=== PATIENT | female | born 1940 | race Caucasian/White ===

== ENCOUNTER 2023-12-21 20:35 | Emergency (ER) | payer MEDICARE, MEDICAID, SELFPAY ==
[2023-12-21 20:35] VITALS: BMI 48.3
[2023-12-21 20:40] VITALS: BP 114/71
[2023-12-21 20:43] VITALS: BP 114/71
[2023-12-21 21:00] VITALS: BP 110/63
[2023-12-21 21:23] LABS: % Basophils 0.4 % (0-2); % Eosinophils 3.1 % (0-6); % Immature Granulocytes 0.4 % (0-0.5); % Lymphocytes 22.9 % (20.5-51.1); % Monocytes 7.2 % (1.7-9.3); Absolute Eosinophils 0.2 10^3/uL (0-0.7); Absolute Lymphocytes 1.7 10^3/uL (1.2-3.4); Absolute Monocytes 0.5 10^3/uL (0.1-0.6); Absolute Neutrophils 4.9 10^3/uL (1.4-6.5); Hematocrit 42.7 % (37.0-47.0); Hemoglobin 13.4 g/dL (12.0-16.0); Mean Corp Hgb Conc. 31.4 g/dL (33.0-37.0); Mean Corpuscular Hgb 30.2 pg (27.0-31.0); Mean Corpuscular Volume 96.2 fL (81.0-99.0); Mean Platelet Volume 12.2 fL (7.4-10.4); Nucleated Red Blood Cells % 0 %; Platelet Count 153 10^3/uL (130-400); Red Blood Cell Count 4.44 10^6/uL (4.20-5.40); Red Cell Dist. Width 13.8 % (11.5-14.5); White Blood Cell Count 7.4 10^3/uL (4.8-10.8)
[2023-12-21 21:39] LABS: ALT (SGPT) 18 U/L (0-35); AST (SGOT) 14 U/L (14-36); Albumin 3.6 g/dl (3.5-5.0); Alkaline Phosphatase 81 U/L (38-126); Blood Urea Nitrogen 22 mg/dl (7-17); Calcium 11.1 mg/dl (8.4-10.2); Carbon Dioxide 29 mmol/L (22-30); Chloride 106 mmol/L (98-107); Estimated Creatinine Clearance 90 ml/min; Glucose 142 mg/dl (70-99); Potassium 4.7 mmol/L (3.5-5.1); Sodium 135 mmol/L (135-145); Total Bilirubin 0.5 mg/dl (0.2-1.3); Total Protein 6.3 g/dl (6.3-8.2); eGFR > 60.00
[2023-12-21 21:49] LABS: Troponin I < 0.012 ng/ml
[2023-12-21 22:04] VITALS: BP 130/55
--- NOTE | 2023-12-21 22:12 | ED.GENMED ---
History of Present Illness
General
Chief Complaint: Chest Pain
Source: patient, ambulance crew and residential
Exam Limitations: other (Psychiatric illness)
Time Seen by Provider: 12/21/23 21:08
Nursing documentation reviewed up to this point in time: agreed with
Travel History
Have you had any contact with someone who has COVID-19?: Unable to Answer
Do you have any symptoms of coronavirus? Fever > 100 degrees, chills, cough, shortness of breath, sore throat, loss of taste or smell, muscle aches, or headache?: Unable to Answer
History of Present Illness
History of Present Illness:
83-year-old female with past medical history of anxiety depression schizophrenia asthma hypertension hyperlipidemia presenting to the emergency department after complaints of chest discomfort at her nursing facility prior to arrival. She denies any
current symptoms at this point.
Past History
Past History
ED Past Medical History: HTN and Psychiatric (Schizophrenia)
ED Past Surgical History: None
Social History
Tobacco: Non-smoker
Alcohol: None
Drug: None
Living: residential
Review of Systems
Review of Systems
Allergies reviewed?: Yes
All Other Systems: ROS reviewed and negative except as documented in HPI and ROS
Phy Exam
Physical Exam
Physical Exam:
GENERAL: Alert , in no apparent distress
EYE: pupils equal and reactive
NECK: Supple, no significant adenopathy.
ENT: o/p clr, mmm.
CARDIAC: Regular rate and rhythm .
LUNGS: Clear breath sounds bilaterally, no acute respiratory distress, no wheezes/rales/rhonchi
ABDOMEN: Soft, without focal tenderness, no r/g, no cvat
NEUROLOGICAL: Alert, no focal neuro deficits patient is not oriented to person place or time
SKIN: Warm and dry, skin intact.
MUSCULOSKELETAL: No edema, well perfused.
PSYCH: Normal and appropriate interaction.
Scores
Heart Score for Chest Pain Patients
STEMI patient?: No
History: Slightly or Non-Suspicious
ECG: Nonspecific Repolarization
Age: >/= 65 years
Risk Factors: 1 or 2 Risk Factors
Troponin: </= Normal Limit
Heart Score for Chest Pain Patients: 4
Heart Score Risk: 20.3% MACE over next 6 weeks
Course
Orders/Labs/Results
Orders:
Orders
12/21/23 20:39
Electrocardiogram (*1) Urgent
Reason for Study: Chest Pain
EKG- Treatment ONCE
12/21/23 20:56
Complete Blood Count/With Diff Urgent
Comprehensive Metabolic Panel Urgent
Troponin I Urgent
12/21/23 21:12
Chest [CR Chest - 2 Views ] Urgent
Comment:
Reason For Exam: cp
Abnormal Lab Results
12/21/23
20:56
MCHC 31.4 L g/dL
(33.0-37.0)
MPV 12.2 H fL
(7.4-10.4)
BUN 22 H mg/dl
(7-17)
Creatinine 0.5 L mg/dL
(0.6-1.0)
Glucose 142 H mg/dl
(70-99)
Calcium 11.1 H mg/dl
(8.4-10.2)
12/21/23 20:56
12/21/23 20:56
Vital Signs
Initial and Last Documented VS:
Initial Vital Signs
Temp Pulse Resp BP Pulse Ox
98.3 F 74 25 114/71 94
12/21/23 20:40 12/21/23 20:40 12/21/23 20:40 12/21/23 20:40 12/21/23 20:40
Last Documented Vital Signs
Temp Pulse Resp BP Pulse Ox
98.3 F 74 25 114/71 94
12/21/23 20:40 12/21/23 20:40 12/21/23 20:40 12/21/23 20:40 12/21/23 20:40
MDM/Problems Addressed
MDM/Problems Addressed:
83-year-old female presenting to the emergency department after she complained of chest pain while at her nursing facility. No complaints here vital signs normal heart and lung examination normal labs unremarkable. EKG normal chest x-ray normal
troponin negative. Patient with no symptoms throughout ER stay patient appears stable for discharge return precautions given advised for close outpatient follow-up.
*Critical Care Note
Total Time (30-74mins, 75-104mins- exclusive of procedures): Not Applicable
ED Attending Note
-
Portions of this chart may have been created with voice recognition software.� Occasional wrong word or��sound alike� substitutions may have occurred due to the inherent limitations of voice recognition software.
Discharge Plan
Departure
Patient Disposition: [facility]pc/SNF
Date of Disposition: 12/21/23
Time of Disposition: 22:22
Patient with high blood pressure during this ER visit?: No
Condition: Good
Covid-19: Not Applicable
Discharge Problem:
Chest pain
Instructions: Chest Pain PCP Follow Up
Referrals:
Sadi Clark I., DO [Family Provider] -
Activity Restrictions/Additional Instructions:
You came to the emergency department today with chest pain. Here had a reassuring evaluation. Please follow closely as an outpatient with your land degradation analyst. Return to the emergency department for any worsening, new or concerning symptoms.
Interventions
Interventions:
*Risk Screen - Suicide Last Done: 12/21/23 20:40
*General Assessment Last Done: 12/21/23 20:40
*Neglect/Abuse Screening Last Done: 12/21/23 20:40
ED- Fall Risk Assessment Last Done: 12/21/23 21:00
ED- Cardiac Assessment Last Done: 12/21/23 21:00
Discharge Date and Time
Print Language: GIBRALTARIAN
[2023-12-21 23:00] VITALS: BP 138/52
[2023-12-22] VITALS: BP 118/60
[2023-12-22 01:00] VITALS: BP 134/66
[2023-12-22 02:00] VITALS: BP 113/58
[2023-12-22 03:00] VITALS: BP 126/65
== END 2023-12-22 03:57 ==
LOC: EMR 20:35
PROVIDERS: EMERGENCY PHYSICIAN Student in an Organized Health Care Education/Training Program; FAMILY PHYSICIAN Internal Medicine
DX: R07.89 Other chest pain (principal); I10 Essential (primary) hypertension; E78.5 Hyperlipidemia, unspecified; F20.9 Schizophrenia, unspecified; J45.909 Unspecified asthma, uncomplicated; F41.9 Anxiety disorder, unspecified; F32.A Depression, unspecified
CPT/HCPCS: 99285; 71046; 80053; 84484; 85025; 93005

== ENCOUNTER 2024-02-29 18:07 | Inpatient (IN) | payer MEDICARE, OTHER, SELFPAY ==
[2024-02-29] VITALS (13 sets, daily range): BP systolic 94–144; BP diastolic 38–94; BMI 48.2
[2024-02-29 10:03] LABS: % Basophils 0.4 % (0-2); % Eosinophils 2.1 % (0-6); % Immature Granulocytes 0.4 % (0-0.5); % Lymphocytes 19.8 % (20.5-51.1); % Neutrophils 68.3 % (42.2-75.2); Absolute Eosinophils 0.2 10^3/uL (0-0.7); Absolute Lymphocytes 1.5 10^3/uL (1.2-3.4); Absolute Monocytes 0.7 10^3/uL (0.1-0.6); Absolute Neutrophils 5.3 10^3/uL (1.4-6.5); Hematocrit 42.2 % (37.0-47.0); Mean Corp Hgb Conc. 30.8 g/dL (33.0-37.0); Mean Corpuscular Hgb 29.4 pg (27.0-31.0); Mean Corpuscular Volume 95.5 fL (81.0-99.0); Nucleated Red Blood Cells % 0 %; Red Blood Cell Count 4.42 10^6/uL (4.20-5.40); Red Cell Dist. Width 13.3 % (11.5-14.5); Urine Albumin Trace (Neg - Trace); Urine Bilirubin Negative (Negative); Urine Character Very Cloudy (Clear); Urine Color Straw; Urine Glucose Negative (Negative); Urine Ketone Negative (Negative); Urine Leukocyte 2+ (Negative); Urine Nitrite Positive (Negative); Urine Occult Blood Trace (Negative); Urine Specific Gravity 1.015 (<1.030); Urine Urobilinogen Negative (Neg - 1+); White Blood Cell Count 7.8 10^3/uL (4.8-10.8)
[2024-02-29 10:31] LABS: Urine Bacteria Many (Negative); Urine Squamous Cell 0-2 /LPF (Few); Urine White Cell 16-20 /HPF (0-5)
[2024-02-29 10:48] LABS: ALT (SGPT) 12 U/L (0-35); AST (SGOT) 10 U/L (14-36); Albumin 3.4 g/dl (3.5-5.0); Alkaline Phosphatase 83 U/L (38-126); Blood Urea Nitrogen 19 mg/dl (7-17); Calcium 10.5 mg/dl (8.4-10.2); Carbon Dioxide 31 mmol/L (22-30); Chloride 105 mmol/L (98-107); Glucose 99 mg/dl (70-99); Potassium 4.5 mmol/L (3.5-5.1); Sodium 140 mmol/L (135-145); Total Bilirubin 0.8 mg/dl (0.2-1.3); Total Protein 6.1 g/dl (6.3-8.2); eGFR > 60.00
[2024-02-29 10:53] LABS: Troponin I < 0.012 ng/ml
--- NOTE | 2024-02-29 14:05 | ED.GENMED ---
History of Present Illness
General
Chief Complaint: Chest Pain
Source: patient
Exam Limitations: none
Time Seen by Provider: 02/29/24 09:44
Nursing documentation reviewed up to this point in time: agreed with
History of Present Illness
History of Present Illness:
Patient with history of dementia, presents to ED from [facility] secondary to chest pain. However, upon arrival in ED, patient denies any chest pain to me. Denies shortness of breath. Denies coughing. Denies fever chills and headache. Denies
dizziness.
Past History
Past History
ED Past Medical History: HTN and Psychiatric (Schizophrenia)
ED Past Surgical History: None
Social History
Tobacco: Non-smoker
Alcohol: None
Drug: None
Living: [facility]
Review of Systems
Review of Systems
Allergies reviewed?: Yes
All Other Systems: ROS reviewed and negative except as documented in HPI and ROS
Constitutional: Reports no symptoms; Denies fever
Respiratory: Reports no symptoms; Denies trouble breathing
Cardiac: Reports no symptoms; Denies chest pain
ABD/GI: Reports no symptoms
Musculoskeletal: Reports no symptoms
Skin: Reports no symptoms
Neurological: Reports no symptoms
Phy Exam
Physical Exam
Physical Exam:
Physical Exam
General: mild distress, not acutely ill. afebrile. overweight.
Head: nc/at. eomi
Neck: supple. normal range of motion.
Heart: s1/s2 regular rate and rhythm, no murmur. equal radial pulses.
Lungs: no acute respiratory distress. diminished breath sounds bilaterally
Abdomen: normal bowel sounds. not tender. no distention
Neuro: alert and oriented. no focal neurological deficits
Skin: no rash
Psychiatric: well kept. interactive and cooperative
Extremities: LE b/l edema, nonpitting. no calf tenderness.
Scores
Heart Score for Chest Pain Patients
STEMI patient?: Not applicable
Course
Orders/Labs/Results
Orders:
Orders
02/29/24 09:35
EKG [Electrocardiogram (*1)] Urgent
Reason for Study: Chest Pain
EKG- Treatment ONCE
02/29/24 09:51
Complete Blood Count/With Diff Urgent
Glycohemoglobin (HgbA1c) Urgent
Urinalysis Reflex To Culture Urgent
Date Specimen was Collected: 02/29/24
Time Specimen was Collected: 09:45
Urine Microscopic Reflex Cult Urgent
Urine Culture Urgent
VARUN Source: U
Specimen Description:
Date Specimen was Collected: 02/29/24
Time Specimen was Collected: 09:45
02/29/24 10:18
Comprehensive Metabolic Panel Urgent
NT-proBNP Urgent
Comment: ADD ON
Troponin I Urgent
02/29/24 13:59
Cefdinir [Omnicef] 300 mg PO NOW STA
02/29/24 14:38
CR Chest Portable - 1 View Urgent
Comment:
Reason For Exam: hypoxia
Reason Study Needs to be Portable: Patient Unstable
02/29/24 Dinner
Cholesterol Lowering
At Your Request: Non-Participating
Cholesterol Lowering: Sodium, 2 Gram
02/29/24 15:12
Add On- LAB Urgent
Tests Added?: ProBNP
02/29/24 15:13
Dexamethasone Sod Phosphate [Decadron] 6 mg IV NOW STA
Ipratropium/Albuterol Sulfate [Duoneb] 3 ml INH R NOW STA
02/29/24 16:06
Arterial Blood Gas Urgent
%Oxygen/Room Air: 87
02/29/24 17:51
Admit/Transfer Patient As Directed
Co-Sign Provider:
Level of Care: Inpatient admission
Assign to:: Telemetry
Physician / Group: Hospitalist
Diagnosis: UTI, SIRS, Chest pain, Dementia
Reason for Telemetry: Chest Pain syndromes
Date to Stop Telemetry: 03/02/24
Time to Stop Telemetry: 11:00
Reason for Hospitalization: UTI, SIRS, Chest pain, Dementia
Expected length of stay greater than two midnights?: Yes
ELOS- Estimated Length of Stay in days: 5
I certify the patient meets the requirements for IP care: Yes
02/29/24 17:55
Code Status As Directed
Resuscitation Status: Full Code
02/29/24 19:42
Electrocardiogram (*1) Q6H
Reason for Study: Chest Pain
Comment: at admission and Q3H for total of 3, to be done with each troponin
0.9% Sodium Chloride 1000 ml [Nss] 1,000 ml IV 125 mls/hr
Acetaminophen [Tylenol] 650 mg PO Q4HPRN PRN
Bisacodyl [Dulcolax] 10 mg RECTAL DAILYPRN PRN
Guaifenesin Solution [Robitussin] 200 mg PO Q4HPRN PRN
Magnesium Hydroxide [Milk of Magnesia] 30 ml PO [id number] PRN
Phosphate Enema [Fleet Phosphate Enema-Adult] 118 ml RECTAL DAILYPRN PRN
02/29/24 19:42
Activity As Directed
Activity Level: With Assistance
INT (Intravenous Needle Therapy) As Directed
Comment: maintain peripheral IV access
Intake/ Output As Directed
Frequency: Per unit guidelines
Pneumatic Compression Sleeves As Directed
Type: Knee high
Vital Signs As Directed
Frequency: q4h
Weight As Directed
Frequency: Daily
O2 Therapy [RESP] Routine
Nasal Cannula Liter Flow: 2 LPM
Titrate/Wean O2 to maintain O2 sat greater than (%): 90
Special Instructions: 2 liters/minute as needed for pulse oximetry less than 90%
DX Deep Vein Thrombosis Video Routine
02/29/24 20:00
Perphenazine [Trilafon] 4 mg PO BID
Trihexyphenidyl [Artane] 5 mg PO BID
02/29/24 20:09
Troponin I Q3H
Comment: at admit & Q3H for 3 total including ED draws, obtain ECG with each level
02/29/24 22:00
Acetaminophen [Tylenol] 650 mg PO HS
Carboxymethylcellulose [Refresh Celluvisc Gel] See Dose Instructions BOTH EYES QID
CefTRIAXone [Rocephin] 1,000 mg IV Q24H
Gabapentin [Neurontin] 300 mg PO TID
Lorazepam [Ativan] 0.25 mg PO HS
02/29/24 23:13
Troponin I Q3H
Comment: at admit & Q3H for 3 total including ED draws, obtain ECG with each level
03/01/24 01:42
Electrocardiogram (*1) Q6H
Reason for Study: Chest Pain
Comment: at admission and Q3H for total of 3, to be done with each troponin
03/01/24 02:00
Troponin I Q3H
Comment: at admit & Q3H for 3 total including ED draws, obtain ECG with each level
03/01/24 06:51
Basic Metabolic Panel IN AM
Cardiovascular Evaluation IN AM
Complete Blood Count/No Diff IN AM
03/01/24 07:42
Electrocardiogram (*1) Q6H
Reason for Study: Chest Pain
Comment: at admission and Q3H for total of 3, to be done with each troponin
03/01/24 08:00
Lorazepam [Ativan] 0.5 mg PO DAILY
Losartan [Cozaar] 100 mg PO DAILY
03/02/24 11:00
DC Protocol for Telemetry ONCE
Abnormal Lab Results
02/29/24 02/29/24 02/29/24
09:51 10:18 16:06
MCHC 30.8 L g/dL
(33.0-37.0)
Absolute Monos (auto) 0.7 H 10^3/uL
(0.1-0.6)
Lymphocytes % 19.8 L %
(20.5-51.1)
pCO2 57 H mmHg
(32-35)
HCO3 32.2 H mmol/L
(21-28)
ABG O2 Sat (Measured) 98.1 H %
(94-98)
Carbon Dioxide 31 H mmol/L
(22-30)
BUN 19 H mg/dl
(7-17)
Creatinine 0.5 L mg/dL
(0.6-1.0)
Hemoglobin A1c 5.7 H %
(4.0-5.6)
Calcium 10.5 H mg/dl
(8.4-10.2)
AST 10 L U/L
(14-36)
Total Protein 6.1 L g/dl
(6.3-8.2)
Albumin 3.4 L g/dl
(3.5-5.0)
Ur Occult Blood Reflex Trace A
(Negative)
Urine Nitrite (Reflex) Positive A
(Negative)
Leukocyte Esterase Rfl 2+ A
(Negative)
Urine RBC 3-6 A /HPF
(0-2)
Urine WBC (Reflex) 16-20 A /HPF
(0-5)
Urine Bacteria (Reflex) Many A
(Negative)
02/29/24 09:51
02/29/24 10:18
Vital Signs
Initial and Last Documented VS:
Initial Vital Signs
Pulse Resp
69 20
02/29/24 09:43 02/29/24 09:43
Last Documented Vital Signs
Temp Pulse Resp BP Pulse Ox
97.3 F 50 16 152/73 96
03/01/24 10:24 03/01/24 10:24 03/01/24 10:24 03/01/24 10:24 03/01/24 10:28
MDM/Problems Addressed
MDM/Problems Addressed:
Patient remains chest pain-free during prolonged course of observation ED, along with normal EKG and troponin level.
Urinalysis checked secondary to foul-smelling urine noted upon arrival, which is suggestive of urinary tract infection. Urine cx pending
Unfortunately, patient remains persistently hypoxic, requiring supplemental oxygen, likely multifactorial, including underlying copd/emphysema, as well as obesity, along with possible mild fluid overload. Pt will be admitted for further evaluation
and treatment.
*EKG
Interpreted by ED Provider?: Yes
EKG Intrepretation Date: 02/29/24
Heart Rate: 63
Rate: normal
Rhythm: sinus and PVC's
[place]: normal axis
Interval: normal interval
*Critical Care Note
Total Time (30-74mins, 75-104mins- exclusive of procedures): Not Applicable
ED Attending Note
-
Portions of this chart may have been created with voice recognition software.� Occasional wrong word or��sound alike� substitutions may have occurred due to the inherent limitations of voice recognition software.
Discharge Plan
Departure
Patient Disposition: Admit
Date of Disposition: 02/29/24
Time of Disposition: 15:28
Admit to: Telemetry
Presentation/result/management discussed w/ accepting MD/DO: Hospitalist
Discharge Problem:
Acute UTI, Hypoxia, COPD (chronic obstructive pulmonary disease)
Interventions
Interventions:
*Risk Screen - Suicide Last Done: 02/29/24 09:42
*General Assessment Last Done: 02/29/24 09:45
*Neglect/Abuse Screening Last Done: 02/29/24 09:42
ED- Fall Risk Assessment Last Done: 02/29/24 09:38
*ED COVID-19 Vaccine History Last Done: 02/29/24 09:40
*Nursing Disposition Last Done: 02/29/24 19:25
ED- Cardiac Assessment Last Done: 02/29/24 09:47
Discharge Date and Time
Discharge Date/Time: 02/29/24 19:40
[2024-02-29] MEDS: OMNICEF 300 MG PO (14:24)
[2024-02-29] MEDS: DUONEB 3 ML INH (15:21)
[2024-02-29] MEDS: DECADRON 6 MG IV (15:21)
[2024-02-29 15:52] LABS: NT-proBNP 265 pg/ml
[2024-02-29 16:18] LABS: B.E. 5.2 mmol/L; HCO3 32.2 mmol/L (21-28); O2 Saturation % 98.1 % (94-98); PCO2 57 mmHg (32-35); PO2 84 mmHg (83-108); pH 7.36 (7.35-7.45)
--- NOTE | 2024-02-29 17:33 | HPS.HSE ---
Family Physician
-
Family Physician: Sadi Clark
Chief Complaint
-
Chest pain
History of Present Illness
83 woman with a history of dementia, comes to the ED from a [facility], secondary to chest pain. In the ED, she denied any chest pain. She then denied shortness of breath, coughing, fever chills and headache, dizziness. At the time of my
interview, she appeared chronically ill, but stated she 'felt fine.'
Medical History
Past Medical History
Past Medical History: Reports Other
Additional Past Medical History:
Essential HTN
Schizophrenia
Dementia
COPD
Past Surgical History: Reports Other
Additional Past Surgical History:
Not known.
Social History
Unable to obtain full social history at this time due to: Dementia
Employment: Disabled
Family History
Family History: Not pertinent
Allergies / Home Medications
Allergies reflects when Allergies were last updated in [facility].
Home Medications with original date entered in [facility]
Allergy/Medication List:
Allergies
Allergy/AdvReac Type Severity Reaction Status Date / Time
No Known Allergies Allergy Verified 02/29/24 09:59
Home Medications
acetaminophen 325 mg tablet (Tylenol) 650 mg PO HS 02/29/24
acetaminophen 325 mg tablet (Tylenol) 650 mg PO Q4HPRN PRN mild pain 02/29/24
bisacodyl 10 mg rectal suppository (Dulcolax (bisacodyl)) 10 mg GA DAILYPRN PRN if no bm aftr mom 02/29/24
calcium carbonate 500 mg PO DAILY 02/29/24
carboxymethylcellulose sodium 0.5 % eye drops (Refresh Tears) 1 drp BOTH EYES QID 02/29/24
cholecalciferol (vitamin D3) 25 mcg (1,000 unit) tablet (Vitamin D3) 25 mcg PO DAILY 02/29/24
gabapentin 300 mg capsule 300 mg PO TID 02/29/24
guaifenesin 100 mg/5 mL oral liquid 200 mg PO Q4HPRN PRN cough 02/29/24
ibandronate 150 mg tablet 150 mg PO QMONTH 02/29/24
lorazepam 0.5 mg tablet (Ativan) 0.25 mg PO HS 02/29/24
lorazepam 0.5 mg tablet (Ativan) 0.5 mg PO DAILY 02/29/24
losartan 100 mg tablet 100 mg PO DAILY 02/29/24
magnesium hydroxide 400 mg/5 mL oral suspension (Milk of Magnesia) 30 ml PO [id number] PRN if no bm on 3rd day 02/29/24
perphenazine 4 mg tablet 4 mg PO BID 02/29/24
sodium phosphates 19 gram-7 gram/118 mL enema (Fleet Enema) 118 ml GA DAILYPRN PRN if no bm aftr dulcolax 02/29/24
trihexyphenidyl 0.4 mg/mL oral elixir 5 mg PO BID 02/29/24
Review of Systems
-
Unable to obtain full review of systems at this time due to: Dementia
Physical Exam
Vital Signs
Vital Signs
Temp Pulse Resp BP Pulse Ox
99.0 F 53 16 107/38 93
02/29/24 09:56 02/29/24 17:00 02/29/24 17:00 02/29/24 17:00 02/29/24 17:00
Physical Exam
General: Appears Chronically Ill and Obese
HEENT: Nose Appears Normal and Ears Appear Normal
Respiratory: Clear
Cardiac: S1/S2 and Regular Rhythm
GI: Soft, Non Tender and Non Distended
Musculoskeletal: No Clubbing, No Cyanosis and No Edema
Skin: Warm and Dry; No Rash or Jaundice
Neuro: Awake and Alert; No Oriented or AO x 3
Psych: Calm
Laboratory Results
-
02/29/24 09:51
02/29/24 10:18
Laboratory Results
pH 7.36 (7.35-7.45) 02/29/24 16:06
pCO2 57 mmHg (32-35) H 02/29/24 16:06
pO2 84 mmHg (83-108) 02/29/24 16:06
HCO3 32.2 mmol/L (21-28) H 02/29/24 16:06
Total Bilirubin 0.8 mg/dl (0.2-1.3) 02/29/24 10:18
AST 10 U/L (14-36) L 02/29/24 10:18
ALT 12 U/L (0-35) 02/29/24 10:18
Alkaline Phosphatase 83 U/L (38-126) 02/29/24 10:18
Troponin I < 0.012 ng/ml 02/29/24 10:18
Data Reviewed
-
Lab Data: Labs Reviewed by me
Impression/Plan
-
IMPRESSION:
83 woman with dementia, UTI, and the following findings:
BUN/Creat >20
Ca 10.5
BP 99/78
UA Nitrite, LE, RBC. WBC, JAYA
BNP 265
PLAN:
1. Hypoxia - new issue, though h/o COPD, no signs of CHF, BNP 265. Initial c/o chest pain.
Supplemental O2 as needed
Telemetry
JUAN CARLOS
2. UTI, with BP of 99/78, likely increased confusion. Meets criteria for SIRS
IV abx
IV saline
Follow cultures
3. Increased Ca, 10.5, unclear cause but may be related to dehydration
IV saline
Recheck in am
4. Dementia - chronic issue
Supportive care
Presumed full code for now (check [facility] records when possible)
VCD for DVTp
--- NOTE | 2024-02-29 20:00 | PTCARENOTE ---
Pt was received from ED at 1950. Pt was pulled over to the unit bed. Pt is oriented x1, to herself only, she is aware that she is in a hospital but unsure which hospital, pleasantly confused. Bed alarm in use. Denies chest pain. Pt resting in bed
comfortably.
[2024-02-29 20:42] LABS: Troponin I < 0.012 ng/ml
[2024-02-29] MEDS: ROCEPHIN 1000 MG IV (21:00)
[2024-02-29] MEDS: TYLENOL 650 MG PO (21:00)
[2024-02-29] MEDS: NEURONTIN 300 MG PO (21:00)
[2024-02-29] MEDS: STERILE WATER FOR INJECTION 10 ML IV (21:00)
[2024-02-29] MEDS: TRILAFON 4 MG PO (21:01)
[2024-02-29] MEDS: ARTANE 5 MG PO (21:02)
[2024-02-29] MEDS: ATIVAN 0.25 MG PO (21:02)
[2024-02-29] MEDS: NSS 1000 IV (21:08)
[2024-02-29] MEDS: REFRESH CELLUVISC GEL 1 DROPS BOTH EYES (22:02)
[2024-02-29 23:46] LABS: Troponin I < 0.012 ng/ml
[2024-03-01 02:30] LABS: Troponin I < 0.012 ng/ml
[2024-03-01 03:23] VITALS: BP 116/70
[2024-03-01] MEDS: NSS 1000 IV ×3 (03:35→20:02)
[2024-03-01 05:59] VITALS: BMI 48.5
[2024-03-01 06:48] VITALS: BP 134/76
[2024-03-01 07:39] LABS: Hematocrit 39.4 % (37.0-47.0); Hemoglobin 12.8 g/dL (12.0-16.0); Mean Corp Hgb Conc. 32.5 g/dL (33.0-37.0); Mean Corpuscular Hgb 29.7 pg (27.0-31.0); Mean Corpuscular Volume 91.4 fL (81.0-99.0); Mean Platelet Volume 12.3 fL (7.4-10.4); Platelet Count 158 10^3/uL (130-400); Red Blood Cell Count 4.31 10^6/uL (4.20-5.40); Red Cell Dist. Width 13.1 % (11.5-14.5); White Blood Cell Count 4.5 10^3/uL (4.8-10.8)
[2024-03-01] MEDS: ARTANE 5 MG PO ×2 (08:16→20:01)
[2024-03-01] MEDS: NEURONTIN 300 MG PO ×3 (08:16→21:50)
[2024-03-01] MEDS: COZAAR 100 MG PO (08:17)
[2024-03-01] MEDS: ATIVAN 0.5 MG PO (08:19)
[2024-03-01] MEDS: TRILAFON 4 MG PO ×2 (08:19→20:01)
[2024-03-01 08:24] LABS: Blood Urea Nitrogen 16 mg/dl (7-17); Carbon Dioxide 25 mmol/L (22-30); Chloride 107 mmol/L (98-107); Estimated Creatinine Clearance 87 ml/min; Glucose 117 mg/dl (70-99); HDL Cholesterol 48 mg/dl; LDL Cholesterol, Calculated 71 mg/dl; Potassium 4.7 mmol/L (3.5-5.1); Sodium 138 mmol/L (135-145); Total Cholesterol 130 mg/dl (50-199); Triglyceride 57 mg/dl (10-149); Very Low Density Lipoprotein 11 mg/dl (0-30); eGFR > 60.00
[2024-03-01] MEDS: REFRESH CELLUVISC GEL 1 DROPS BOTH EYES ×4 (08:31→22:01)
[2024-03-01 09:13] LABS: Troponin I < 0.012 ng/ml
[2024-03-01 09:19] LABS: Glycohemoglobin (HgbA1c) 5.7 % (4.0-5.6)
[2024-03-01 10:24] VITALS: BP 152/73
[2024-03-01] MEDS: PEPCID 20 MG PO (11:52)
--- NOTE | 2024-03-01 12:43 | CM ---
frozen food department manager reviewed patient's chart and patient was admitted from [facility] where patient is a intermediate resident, patient with Dementia and Schizophrenia, patient has lived at intermediate for over 10 years. frozen food department manager reached out to
intermediate and spoke with nurse Perry and patient is a setup with meals, [employer] to w/c and assist with propelling w/c.
PCP: Dr Clark
Plan; Patient to return to [facility] when stable.
[facility]
Report [phone]
--- NOTE | 2024-03-01 13:41 | W.PN.HOSP.TC ---
Today's Communication/Plan
-
Continue treatment for UTI, epigastric pain
Monitor calcium
Assessment / Plan
Assessment / Plan
Physical Exam
General: Appears Chronically Ill and Obese
HEENT: Normocephalic
Respiratory: Clear
Cardiac: S1/S2 and Regular Rhythm
GI: Soft, Non Tender and Non Distended. Positive Bowel Sounds.
Musculoskeletal: No Cyanosis and No Edema
Skin: Warm and Dry
Neuro: Awake and Alert; No Oriented or AAO x 3
Psych: Calm
Assessment/Plan
83 woman with dementia presented with chest pain.
Chest Pain Prior to Arrival
-Chest pain resolved once patient came to the emergency room
-EKG on admission was unremarkable for ischemia and troponins negative
-Now patient complaining of epigastric pain
Hypoxia - per report new issue (will need to be verified), though h/o COPD, no signs of CHF, BNP 265.
-Supplemental O2 as needed to maintain SpO2>89%
-Telemetry
Epigastric Pain
History of GERD?
-Pepcid started -- continue
Suspected UTI
-Hard to assess symptoms given patient appears not to be fully reliable with history
-UA studies suggest UTI
-Continue Ceftriaxone
-Follow cultures, although blood cultures ordered after antibiotics started
-Urine cultures preliminarily growing gram negative bacilli
Hypercalcemia - increased Ca, 10.5, unclear cause but may be related to dehydration
-Patient noted to take Calcium Carbonate and Cholecalciferol at home
-Hold both of the above for now
-Continue IV fluids
-Recheck labs in am
Urinary Retention this hospitalization
-03/01/24: Nurse bladder scanned patient for 620 cc
-Continue Bladder Scan protocol for now
Dementia - chronic issue
Supportive care
Hypertension
-Continue Losartan
CAD? Coronary Artery Atherosclerosis?
History of Peripheral Vascular Disease
History of Essential Tremor
Osteoporosis
Anxiety
Bipolar Disorder
Schizophrenia?
Obesity
Code Status: Full Code
DVT PPx: Lovenox 40 mg BID subq (given degree of obesity)
Anticipated Discharge: > 48 hours
Subjective/Interval History
-
Date of Service: March 01, 2024
Patient was seen and examined. She reported epigastric discomfort.
Objective Data
-
Labs:
Laboratory Results
03/01/24
06:51
WBC 4.5 L
Hgb 12.8
Hct 39.4
Plt Count 158
Sodium 138
Potassium 4.7
Chloride 107
Carbon Dioxide 25
BUN 16
Creatinine 0.4 L
Glucose 117 H
Calcium 11.0 H
Vital Signs:
Vital Signs
Temp Pulse Resp BP Pulse Ox
97.3 F 50 16 152/73 96
03/01/24 10:24 03/01/24 10:24 03/01/24 10:24 03/01/24 10:24 03/01/24 10:28
I&O
02/29/24 03/01/24 03/02/24
06:59 06:59 06:59
Intake Total 120 / 120
Output Total 600 / 600
Balance -480 / -480
[2024-03-01 14:01] LABS: Troponin I < 0.012 ng/ml
--- NOTE | 2024-03-01 14:04 | PTCARENOTE ---
Patient has not voided since 6am , incont small amt x1- Bladder scanned for 620 ,straight cathed at 1400 for 600 cc yellow urine. Pt denied any pain or discomfort , no abd distention. Hospitalist aware
[2024-03-01 14:56] VITALS: BP 136/65
[2024-03-01] MEDS: LOVENOX 40 MG SC (17:02)
[2024-03-01 19:10] VITALS: BP 121/57
[2024-03-01 20:18] LABS: Troponin I < 0.012 ng/ml
[2024-03-01] MEDS: ROCEPHIN 1000 MG IV (21:49)
[2024-03-01] MEDS: STERILE WATER FOR INJECTION 10 ML IV (21:49)
[2024-03-01] MEDS: ATIVAN 0.25 MG PO (21:51)
[2024-03-01] MEDS: TYLENOL 650 MG PO (21:51)
[2024-03-01 23:15] VITALS: BP 125/61
[2024-03-02 03:04] LABS: Troponin I < 0.012 ng/ml
[2024-03-02 03:10] VITALS: BP 117/60
[2024-03-02] MEDS: LOVENOX 40 MG SC ×2 (05:24→16:37)
[2024-03-02 06:00] VITALS: BMI 49.2
[2024-03-02 07:46] VITALS: BP 135/87
[2024-03-02 07:49] LABS: % Basophils 0.3 % (0-2); % Eosinophils 2.3 % (0-6); % Immature Granulocytes 0.3 % (0-0.5); % Monocytes 9.2 % (1.7-9.3); % Neutrophils 58.9 % (42.2-75.2); Absolute Eosinophils 0.1 10^3/uL (0-0.7); Absolute Lymphocytes 1.7 10^3/uL (1.2-3.4); Absolute Monocytes 0.5 10^3/uL (0.1-0.6); Absolute Neutrophils 3.4 10^3/uL (1.4-6.5); Hematocrit 39.9 % (37.0-47.0); Hemoglobin 12.1 g/dL (12.0-16.0); Mean Corp Hgb Conc. 30.3 g/dL (33.0-37.0); Mean Corpuscular Hgb 29.6 pg (27.0-31.0); Mean Corpuscular Volume 97.6 fL (81.0-99.0); Mean Platelet Volume 12.2 fL (7.4-10.4); Nucleated Red Blood Cells % 0 %; Platelet Count 147 10^3/uL (130-400); Red Blood Cell Count 4.09 10^6/uL (4.20-5.40); Red Cell Dist. Width 13.4 % (11.5-14.5); White Blood Cell Count 5.8 10^3/uL (4.8-10.8)
[2024-03-02] MEDS: REFRESH CELLUVISC GEL 1 DROPS BOTH EYES ×4 (07:59→21:16)
[2024-03-02] MEDS: TRILAFON 4 MG PO ×2 (07:59→21:17)
[2024-03-02] MEDS: NEURONTIN 300 MG PO ×3 (07:59→21:17)
[2024-03-02] MEDS: ATIVAN 0.5 MG PO (07:59)
[2024-03-02] MEDS: ARTANE 5 MG PO ×2 (07:59→21:16)
[2024-03-02] MEDS: PEPCID 20 MG PO (08:00)
[2024-03-02] MEDS: COZAAR 100 MG PO (08:00)
[2024-03-02 08:32] LABS: ALT (SGPT) 11 U/L (0-35); AST (SGOT) 10 U/L (14-36); Albumin 3.1 g/dl (3.5-5.0); Alkaline Phosphatase 77 U/L (38-126); Blood Urea Nitrogen 17 mg/dl (7-17); Calcium 10.3 mg/dl (8.4-10.2); Carbon Dioxide 30 mmol/L (22-30); Chloride 108 mmol/L (98-107); Estimated Creatinine Clearance 88 ml/min; Glucose 82 mg/dl (70-99); Potassium 4.7 mmol/L (3.5-5.1); Sodium 141 mmol/L (135-145); Total Bilirubin 0.5 mg/dl (0.2-1.3); Total Protein 5.8 g/dl (6.3-8.2); eGFR > 60.00
[2024-03-02 11:33] VITALS: BP 130/80
--- NOTE | 2024-03-02 12:01 | PTCARENOTE ---
Patient has been incontinent of moderate amount of urine twice so far today . Room air pulse ox 94%. Denies chest pain , denies shortness of breath .
--- NOTE | 2024-03-02 13:02 | CM ---
Addendum entered by Laurel Villanueva 03/02/24 15:28:
Phone call placed to patients daughter to provide update, no response, unable to leave voicemail as phone kept ringing. Patient scheduled for 6:30 p.m. ambulance transport, facility unable to accept at that time due to staffing issues, can accept
patient for discharge tomorrow.
Original Note:
Patient seen bedside. CM spoke with [facility] liasion, confirmed patient is LTC resident on a bed hold, can return when medically stable. CM will continue to follow for all discharge planning needs.
Plan; return to [facility] when stable.
[facility]
Report [phone]
--- NOTE | 2024-03-02 14:17 | W.DS.TRANS ---
DC Summary - [place] Supervisor
-
Discharge Instructions:
Discharge Diagnosis/Procedures UTI
Diet Low Cholesterol,2 Gram Sodium
Activity As tolerated,With assistance
Driving Restrictions No driving
Bathing Restrictions None
Instructions:
Stand-Alone Forms:
Changes to Home Medications: No
Discharge Medications:
DC Medications w/original date entered in [facility]
acetaminophen 325 mg tablet (Tylenol) 650 mg PO HS 02/29/24
acetaminophen 325 mg tablet (Tylenol) 650 mg PO Q4HPRN PRN mild pain 02/29/24
bisacodyl 10 mg rectal suppository (Dulcolax (bisacodyl)) 10 mg OK DAILYPRN PRN if no bm aftr mom 02/29/24
calcium carbonate 500 mg PO DAILY 02/29/24
carboxymethylcellulose sodium 0.5 % eye drops (Refresh Tears) 1 drp BOTH EYES QID 02/29/24
cholecalciferol (vitamin D3) 25 mcg (1,000 unit) tablet (Vitamin D3) 25 mcg PO DAILY 02/29/24
gabapentin 300 mg capsule 300 mg PO TID 02/29/24
guaifenesin 100 mg/5 mL oral liquid 200 mg PO Q4HPRN PRN cough 02/29/24
ibandronate 150 mg tablet 150 mg PO QMONTH 02/29/24
losartan 100 mg tablet 100 mg PO DAILY 02/29/24
magnesium hydroxide 400 mg/5 mL oral suspension (Milk of Magnesia) 30 ml PO [id number] PRN if no bm on 3rd day 02/29/24
perphenazine 4 mg tablet 4 mg PO BID 02/29/24
sodium phosphates 19 gram-7 gram/118 mL enema (Fleet Enema) 118 ml OK DAILYPRN PRN if no bm aftr dulcolax 02/29/24
trihexyphenidyl 0.4 mg/mL oral elixir 5 mg PO BID 02/29/24
famotidine 20 mg tablet 20 mg PO DAILY #30 tabs 03/02/24
lorazepam 0.5 mg tablet (Ativan) 0.25 mg (1/2 x 0.5 mg) PO HS #3 tabs 03/02/24
lorazepam 0.5 mg tablet (Ativan) 0.5 mg PO DAILY #3 tabs 03/02/24
sulfamethoxazole 800 mg-trimethoprim 160 mg tablet 1 tab PO BID #6 tabs 03/02/24
Home Medication Changes
Pending Results: No
--- NOTE | 2024-03-02 14:58 | W.PN.HOSP.TC ---
Today's Communication/Plan
-
Discharge
Assessment / Plan
Assessment / Plan
Gen-awake, alert, NAD, obese
HEENT-NC, AT, anicteric, clear oral mm
Neck-supple
CV-reg, no M, +S1/S2
Lungs-clear B/L
Abd-soft, NT, ND
Ext-no edema
Musculoskeletal-no cyanosis, clubbing
Skin-warm and dry
Neuro-grossly non-focal
Psych-calm, cooperative
83 woman with dementia presented with chest pain.
Chest Pain Prior to Arrival -atypical pain. Troponins negative. Possibly due to GERD.
Acute hypoxic respiratory insufficiency-resolved. Currently on room air, pulse ox 94 to 97%.
Epigastric Pain
History of GERD?
-Pepcid started -- continue
Proteus UTI -will change to Bactrim DS.
Hypercalcemia - increased Ca, 10.5, unclear cause but may be related to dehydration
-Patient noted to take Calcium Carbonate and Cholecalciferol at home
-Hold both of the above for now
-Continue IV fluids
-Recheck labs in am
Urinary Retention this hospitalization -improved. Last bladder scan 23 cc.
Dementia - chronic issue
Supportive care
Essential hypertension -Continue Losartan
CAD? Coronary Artery Atherosclerosis?
History of Peripheral Vascular Disease
History of Essential Tremor
Osteoporosis
Anxiety
Bipolar Disorder
Schizophrenia?
Morbid obesity due to excess calories
Full code
Dispo -medically stable for discharge. Case management aware.
I tried to reach patient's daughter Rosalba on the phone but unable to connect.
32-minute spent in discharge process.
Anticipated Discharge: Today
Subjective/Interval History
-
Date of Service: March 02, 2024
Patient seen and examined. No complaints.
Objective Data
-
Labs:
Laboratory Results
03/02/24
07:14
WBC 5.8
Hgb 12.1
Hct 39.9
Plt Count 147
Sodium 141
Potassium 4.7
Chloride 108 H
Carbon Dioxide 30
BUN 17
Creatinine 0.6
Glucose 82
Calcium 10.3 H
Total Bilirubin 0.5
AST 10 L
ALT 11
Alkaline Phosphatase 77
Vital Signs:
Vital Signs
Temp Pulse Resp BP Pulse Ox
98.3 F 70 20 130/80 94
03/02/24 11:33 03/02/24 11:33 03/02/24 11:33 03/02/24 11:33 03/02/24 11:33
I&O
03/01/24 03/02/24 03/03/24
06:59 06:59 06:59
Intake Total 120 / 120 1979 / 1979
Output Total 600 / 600 600 / 600
Balance -480 / -480 1380 / 1380
Review of Systems
-
History Source: Patient
All other systems: Reviewed and negative
[2024-03-02 15:37] VITALS: BP 92/49
[2024-03-02] MEDS: ATIVAN 0.25 MG PO (21:14)
[2024-03-02] MEDS: STERILE WATER FOR INJECTION IV (21:15)
[2024-03-02] MEDS: TYLENOL 650 MG PO (21:16)
[2024-03-02] MEDS: BACTRIM DS 800 MG/160 MG 1 TABLET PO (21:16)
[2024-03-02 23:30] VITALS: BP 133/65
[2024-03-03 05:42] VITALS: BMI 50.6
[2024-03-03] MEDS: LOVENOX 40 MG SC (06:04)
[2024-03-03 07:57] VITALS: BP 134/73
[2024-03-03] MEDS: ARTANE 5 MG PO (09:03)
[2024-03-03] MEDS: REFRESH CELLUVISC GEL 6 DROPS BOTH EYES ×2 (09:03→11:40)
[2024-03-03] MEDS: TRILAFON 4 MG PO (09:03)
[2024-03-03] MEDS: NEURONTIN 300 MG PO (09:03)
[2024-03-03] MEDS: BACTRIM DS 800 MG/160 MG 1 TABLET PO (09:03)
[2024-03-03] MEDS: PEPCID 20 MG PO (09:03)
[2024-03-03] MEDS: COZAAR 100 MG PO (09:04)
[2024-03-03] MEDS: ATIVAN 0.5 MG PO (09:04)
--- NOTE | 2024-03-03 10:40 | CM ---
Addendum entered by Laurel Villanueva 03/03/24 12:18:
CM placed call to patients daughter to discuss transport back to [facility] along with reviewing IMM, unable to leave voicemail.
Original Note:
Patient for discharge today, return to [facility]. Ambulance transport scheduled for 3:00 p.m. Vania, liaison at [facility], updated with transport time. CM will continue to follow for all discharge planning needs.
Plan; return to [facility], 3:00 p.m. ambulance transport
[facility]
Report [phone]
--- NOTE | 2024-03-03 12:34 | W.PN.HOSP.TC ---
Today's Communication/Plan
-
Discharge
Assessment / Plan
Assessment / Plan
Gen-awake, alert, NAD, obese
HEENT-NC, AT, anicteric, clear oral mm
Neck-supple
CV-reg, no M, +S1/S2
Lungs-clear B/L
Abd-soft, NT, ND
Ext-no edema
Musculoskeletal-no cyanosis, clubbing
Skin-warm and dry
Neuro-grossly non-focal
Psych-calm, cooperative
Chest Pain Prior to Arrival -atypical pain. Troponins negative. Possibly due to GERD.
Acute hypoxic respiratory insufficiency-resolved. Currently on room air, pulse ox 94 to 97%.
Possible GERD -continue Pepcid.
Proteus UTI -continue Bactrim DS.
Hypercalcemia -corrected calcium is 11.2 for albumin of 3.1. Will need PTH checked in outpatient follow-up, rule out primary hyperparathyroidism.
-Patient noted to take Calcium Carbonate and Cholecalciferol at home
-Hold both of the above for now
Urinary Retention this hospitalization -improved. Last bladder scan 23 cc.
Dementia -unknown type, stable.
Essential hypertension -Continue Losartan
CAD? Coronary Artery Atherosclerosis?
History of Peripheral Vascular Disease
History of Essential Tremor
Osteoporosis
Anxiety
Bipolar Disorder
Schizophrenia?
Morbid obesity due to excess calories
Full code
Dispo -medically stable for discharge. Case management aware.
Anticipated Discharge: Today
Subjective/Interval History
-
Date of Service: March 03, 2024
Patient seen and examined. No complaints.
Objective Data
-
Vital Signs:
Vital Signs
Temp Pulse Resp BP Pulse Ox
98.9 F 55 18 134/73 95
03/03/24 07:57 03/03/24 07:57 03/03/24 07:57 03/03/24 07:57 03/03/24 07:57
I&O
03/02/24 03/03/24 03/04/24
06:59 06:59 06:59
Intake Total 1979 / 1979 600 / 600
Output Total 600 / 600
Balance 1380 / 1380 600 / 600
Review of Systems
-
Unable to obtain full review of systems at this time due to: Dementia
History Source: Patient
All other systems: Reviewed and negative
[2024-03-03 15:00] VITALS: BP 135/73
== END 2024-03-03 15:19 | DRG 690 ==
LOC: 4 WEST ACU 18:07
PROVIDERS: Hospitalist; ADMITTING PHYSICIAN Internal Medicine; ATTENDING PHYSICIAN Hospitalist; EMERGENCY PHYSICIAN Emergency Medicine; FAMILY PHYSICIAN Internal Medicine
DX: N39.0 Urinary tract infection, site not specified (principal); Z68.43 Body mass index [BMI] 50.0-59.9, adult; F03.94 Unspecified dementia, unspecified severity, with anxiety; R09.02 Hypoxemia; R06.89 Other abnormalities of breathing; E66.01 Morbid (severe) obesity due to excess calories
CPT/HCPCS: 71045; 80048; 80053; 80061; 81003; 81015; 82805; 83036; 83880; 84484; 85025; 85027; 87040; 87070; 87077; 87086; 87186; 93005; 96374; 99285

== ENCOUNTER 2024-03-13 14:27 | Inpatient (IN) | payer MEDICARE, OTHER, SELFPAY ==
[2024-03-13] VITALS (12 sets, daily range): BP systolic 91–134; BP diastolic 42–76; BMI 48.8
[2024-03-13 06:38] LABS: % Basophils 0.6 % (0-2); % Eosinophils 3.5 % (0-6); % Immature Granulocytes 0.3 % (0-0.5); % Lymphocytes 28.2 % (20.5-51.1); % Monocytes 10.1 % (1.7-9.3); % Neutrophils 57.3 % (42.2-75.2); Absolute Eosinophils 0.2 10^3/uL (0-0.7); Absolute Lymphocytes 1.9 10^3/uL (1.2-3.4); Absolute Monocytes 0.7 10^3/uL (0.1-0.6); Absolute Neutrophils 3.9 10^3/uL (1.4-6.5); Hematocrit 38.5 % (37.0-47.0); Hemoglobin 11.8 g/dL (12.0-16.0); Mean Corp Hgb Conc. 30.6 g/dL (33.0-37.0); Mean Corpuscular Hgb 29.5 pg (27.0-31.0); Mean Corpuscular Volume 96.3 fL (81.0-99.0); Nucleated Red Blood Cells % 0 %; Platelet Count 147 10^3/uL (130-400); Red Cell Dist. Width 13.4 % (11.5-14.5); White Blood Cell Count 6.8 10^3/uL (4.8-10.8)
[2024-03-13 06:46] LABS: ALT (SGPT) 13 U/L (0-35); AST (SGOT) 9 U/L (14-36); Albumin 3.2 g/dl (3.5-5.0); Alkaline Phosphatase 99 U/L (38-126); Blood Urea Nitrogen 34 mg/dl (7-17); Calcium 10.3 mg/dl (8.4-10.2); Carbon Dioxide 25 mmol/L (22-30); Chloride 107 mmol/L (98-107); Glucose 91 mg/dl (70-99); Potassium 4.8 mmol/L (3.5-5.1); Sodium 138 mmol/L (135-145); Total Bilirubin 0.5 mg/dl (0.2-1.3); Total Protein 5.6 g/dl (6.3-8.2)
[2024-03-13 07:08] LABS: Troponin I < 0.012 ng/ml
--- NOTE | 2024-03-13 07:15 | ED.GENMED ---
History of Present Illness
General
Chief Complaint: Heart Rate Problem
Source: patient, ambulance crew and long term
Exam Limitations: none
Time Seen by Provider: 03/13/24 06:43
Nursing documentation reviewed up to this point in time: agreed with
History of Present Illness
History of Present Illness:
The patient is an 83-year-old female with a past medical history of hypertension, hyperlipidemia and dementia who arrives from [facility] after staff found her to be more drowsy and less responsive than her 'normal self' last evening and
throughout the night. I spoke to the nurse fitness centre manager there who reports that when the patient was checked on, she was very difficult to awake which is unusual. She was found to have a heart rate of 33 initially. Her blood pressure was low with
systolics in the 90s. They report that they were finally able to wake her up but her heart rate persisted in the 40s. Staff called paramedics who administered oxygen and gave some IV fluids which seemed to help improve her pressure and heart rate.
According to [facility], patient is on nasal oxygen 'as needed' at baseline.
Upon evaluation of the patient, she has no complaints. She denies chest pain, dizziness and shortness of breath. She understands she is in [facility] but is not sure why. She reports she feels well.
Patient has had documented heart rates in the 40s and 50s in the past at [facility].
Past History
Past History
ED Past Medical History: HTN and Psychiatric (Schizophrenia)
ED Past Surgical History: None
Social History
Tobacco: Non-smoker
Alcohol: None
Drug: None
Living: long term
Family History
Family History: Other
Review of Systems
Review of Systems
Allergies reviewed?: Yes
Other source history: long term and ambulance crew
All Other Systems: ROS reviewed and negative except as documented in HPI and ROS
Constitutional: Reports fatigue
EENT: Reports no symptoms
Respiratory: Reports no symptoms
Cardiac: Reports no symptoms
ABD/GI: Reports no symptoms
: Reports no symptoms
Musculoskeletal: Reports no symptoms
Skin: Reports no symptoms
Neurological: Reports no symptoms
Endocrine: Reports no symptoms
Hematologic/Lymphatic: Reports no symptoms
Psychiatric: Reports no symptoms
Phy Exam
Physical Exam
Physical Exam:
Physical Exam
General: no apparent distress, not acutely ill. Patient is resting comfortably. Awakens easily to touch and voice. Difficult to understand but answers simple questions appropriately
Neck: supple. no meningeal signs. normal posterior pharynx
Heart: Regular, bradycardic
Lungs: no acute respiratory distress. clear bilaterally
Abdomen: normal bowel sounds. not tender. no CVAT
Neuro: alert and oriented to self and place. no focal neurological deficits
Skin: no rash
Psychiatric: well kept. interactive and cooperative
Extremities: no edema. no calf tenderness. negative homans. good distal pulses
Course
Orders/Labs/Results
Orders:
Orders
03/13/24 06:07
EKG [Electrocardiogram (*1)] Urgent
Reason for Study: Bradycardia / Tachycardia
EKG- Treatment ONCE
03/13/24 06:16
Complete Blood Count/With Diff Urgent
Comprehensive Metabolic Panel Urgent
Free T4 Urgent
TSH Reflex To Free T4 Urgent
Comment: ADD
Troponin I Urgent
03/13/24 07:48
CARDIOLOGY CONSULT Urgent
Consulting Provider: Guilherme Patel
Was physician already notified: Yes
Reason for consult: bradycardia and bigeminy
03/13/24 07:56
EKG [Electrocardiogram (*1)] Urgent
Reason for Study: Other
Other Reason for Exam: bradycardia
03/13/24 07:57
EKG- Treatment ONCE
03/13/24 09:55
Add On- LAB Routine
Tests Added?: TSH with reflex to free T4
03/13/24 10:09
0.9% Sodium Chloride 500 ml [Nss] 500 ml IV BOLUS
03/13/24 10:10
CT Abd/pelvis W Iv Cont Urgent
Comment:
Reason For Exam: abdominal distension and pain
03/13/24 11:56
Urinalysis Reflex To Culture Urgent
Date Specimen was Collected: 03/13/24
Time Specimen was Collected: 11:56
Urine Microscopic Reflex Cult Urgent
Urine Culture Urgent
VARUN Source: U
Specimen Description:
Date Specimen was Collected: 03/13/24
Time Specimen was Collected: 11:56
03/13/24 13:25
Piperacillin/Tazo 4.5 Gram [Zosyn] 4.5 gram in 100 ml IV NOW
Abnormal Lab Results
03/13/24 03/13/24
06:16 11:56
RBC 4.00 L 10^6/uL
(4.20-5.40)
Hgb 11.8 L g/dL
(12.0-16.0)
MCHC 30.6 L g/dL
(33.0-37.0)
MPV 12.0 H fL
(7.4-10.4)
Absolute Monos (auto) 0.7 H 10^3/uL
(0.1-0.6)
Monocytes % 10.1 H %
(1.7-9.3)
BUN 34 H mg/dl
(7-17)
Calcium 10.3 H mg/dl
(8.4-10.2)
AST 9 L U/L
(14-36)
Total Protein 5.6 L g/dl
(6.3-8.2)
Albumin 3.2 L g/dl
(3.5-5.0)
TSH (Reflex) 5.13 H uIU/ml
(0.47-4.68)
Ur Occult Blood Reflex 1+ A
(Negative)
Leukocyte Esterase Rfl 2+ A
(Negative)
Urine WBC (Reflex) 50-60 A /HPF
(0-5)
03/13/24 06:16
03/13/24 06:16
Vital Signs
Initial and Last Documented VS:
Initial Vital Signs
Temp Pulse Resp BP Pulse Ox
98.5 F 40 20 126/42 92
03/13/24 06:02 03/13/24 06:02 03/13/24 06:02 03/13/24 06:02 03/13/24 06:02
Last Documented Vital Signs
Temp Pulse Resp BP Pulse Ox
98.5 F 66 18 107/75 97
03/13/24 06:02 03/13/24 13:20 03/13/24 13:20 03/13/24 13:00 03/13/24 06:56
MDM/Problems Addressed
Differential Diagnosis Includes:
Symptomatic bradycardia, asymptomatic chronic bradycardia, heart block
MDM/Problems Addressed:
Patient presents with acute on chronic bradycardia and transient hypotension
Chronic conditions affecting care:
Given patient has a history of hypertension and hyperlipidemia, she is at increased risk of developing heart disease that can cause bradycardia
Chronic conditions affecting care: HTN
Acute Exacerbation and/or Progression of Chronic Illness: HTN
*Radiology
Radiology exam reviewed: preliminary read by ED provider
*Pulse Oximetry
Patient hypoxic: no
*EKG
Interpreted by ED Provider?: Yes
Interpretation: abnormal
Comparison EKG: changes noted
Rate: normal
Rhythm: sinus and PVC's (Frequent PVCs, bigeminy)
[place]: left axis deviation
Interval: normal interval
QRS Pattern: normal QRS
Ischemia: non-specific ST changes
*Loss Control Manager Interpretation
Rate: bradycardiac
Interpretation: abnormal
Rhythm: sinus
*Critical Care Note
Total Time (30-74mins, 75-104mins- exclusive of procedures): Not Applicable
Data Reviewed
Review of Other/Old Records Reveals: Discharge Summary (Patient's discharge reviewed from 02/2024 from hospitalist when patient was admitted for atypical chest pain, had negative troponins and had UTI)
Source: patient and spouse
Patient Management
Discussion with other providers: Other (Dr. Guilherme Patel in cardiology agreed to evaluate the patient in the ED)
Update Note
Update Note:
Second EKG shows a normal sinus bradycardia with no PVCs, left axis deviation, nonspecific ST-T wave
Patient has been resting comfortably with heart rates ranging from 40s to 60s
Patient evaluated at 10:00 AM and is still resting comfortably. However, she does now mention that her abdomen is hurting her. She is mildly distended with normal bowel sounds. I asked if she is hungry or feels like she is to go the bathroom and
she said no to both questions. Patient is still complaining of right mid abdominal pain. Due to her advanced age and dementia, we will do a CAT scan to make sure she is okay.
Patient evaluated by cardiology. On cardiac standpoint, patient will be treated conservatively. Cardiology feels that this is more likely due to PVCs and pseudobradycardia, rather than any type of symptomatic bradycardia
ED Attending Note
-
Portions of this chart may have been created with voice recognition software.� Occasional wrong word or��sound alike� substitutions may have occurred due to the inherent limitations of voice recognition software.
Discharge Plan
Departure
Patient Disposition: Admit
Date of Disposition: 03/13/24
Time of Disposition: 13:24
Admit to: Med/Surg
Presentation/result/management discussed w/ accepting MD/DO: Hospitalist
Patient with high blood pressure during this ER visit?: No
Condition: Good
Covid-19: Not Applicable
Discharge Problem:
Acute UTI, Transient hypotension, Renal calculus, right
Prescriptions:
No Action
acetaminophen [Tylenol] 325 mg Tablet
650 mg PO Q4HPRN MDD 3000 mg PRN (Reason: mild pain/temp>100F)
guaifenesin 100 mg/5 mL Liquid
200 mg PO Q4HPRN PRN (Reason: cough)
magnesium hydroxide [Milk of Magnesia] 400 mg/5 mL Suspension
30 ml PO [id number] PRN (Reason: if no BM in 3 days)
carboxymethylcellulose sodium [Refresh Tears] 0.5 % Drops
1 drp BOTH EYES QID
bisacodyl [Dulcolax (bisacodyl)] 10 mg Suppository
10 mg NV DAILYPRN PRN (Reason: if MOM ineffective in 24 hrs)
perphenazine 4 mg Tablet
4 mg PO BID
Fleet Enema 19-7 gram/118 mL Enema
118 ml NV DAILYPRN PRN (Reason: if dulcolax ineffective in 24 hrs)
gabapentin 300 mg Capsule
300 mg PO TID
losartan 100 mg Tablet
100 mg PO DAILY
cholecalciferol (vitamin D3) [Vitamin D3] 25 mcg (1,000 unit) Tablet
25 mcg PO DAILY
trihexyphenidyl 0.4 mg/mL Elixir
5 mg PO BID
famotidine 20 mg Tablet
20 mg PO DAILY Qty: 30 0RF
Patient Comments:
03/13/2024, x 14 days; start date: 03/04/2024; end date: 03/18/2024.
ipratropium-albuterol 0.5 mg-3 mg(2.5 mg base)/3 mL Solution For Nebulization
3 ml INHALATION R QID
Patient Comments:
03/13/2024, QID x 2 weeks; start date: 03/09/2024; end date: 03/23/2024.
lorazepam [Ativan] 0.5 mg tablet
0.25 mg PO HS
lorazepam 0.5 mg Tablet
0.5 mg PO DAILY
calcium carbonate 500 mg calcium (1,250 mg) Tablet
500 mg PO DAILY
Patient Comments:
03/13/2024, 1250 mg.
Referrals:
Sadi Clark I., DO [Family Provider] -
Interventions
Interventions:
*Risk Screen - Suicide Last Done: 03/13/24 06:02
*General Assessment Last Done: 03/13/24 06:02
*Neglect/Abuse Screening Last Done: 03/13/24 06:02
ED- Fall Risk Assessment Last Done: 03/13/24 06:09
*ED COVID-19 Vaccine History Last Done: 03/13/24 06:02
ED- Cardiac Assessment Last Done: 03/13/24 06:09
ED- Pulmonary Assessment Last Done: 03/13/24 06:09
Discharge Date and Time
Print Language: WELSH
--- NOTE | 2024-03-13 10:09 | CON.CAR ---
Addendum entered and electronically signed by Guilherme Patel MD 03/13/24 11:51:
No acute cardiac indication for hospitalization at this time
Addendum entered and electronically signed by Guilherme Patel MD 03/13/24 11:49:
83-year-old woman resides in skilled nursing with history of dementia, admitted in February with chest discomfort, now with bradycardia. Unable to obtain history though she is pleasant and seems comfortable. Difficult to understand. Not making great
deal of sense. Attempted to call daughter without success
PMH: Hypertension, schizophrenia, dementia, COPD
SH: Lives in skilled nursing, disabled,
FH: Not obtained, likely not pertinent
PSH: Unknown
ROS: Not obtainable
126/42, pulse 58, respirate 13, afebrile, head neck exam unremarkable, lungs are probably clear with limited exam, she probably has a murmur of aortic stenosis that is moderate, abdomen benign, massive obesity/some edema of legs, neuro nonfocal,
difficult to understand and confused
EKG sinus bradycardia with PVCs and pattern of bigeminy with long sinus node recovery time, left axis deviation, IMI
Hemoglobin 11.8, white count 6.8, troponin undetectable,
Impression:
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
Relative hypotension, on losartan
Dementia
Schizophrenia
Depression/anxiety
Hyperlipidemia
GERD
Probable aortic stenosis
Plan:
She appears comfortable. Given her comorbidities, strategy should be conservative, though unfortunately we were unable to confirm with family members.
Her perceived bradycardia is actually based on pulse and not actual heart rate, true heart rate is probably in the 60s rather than 40s as recorded with noninvasive modalities such as pulse palpation, oximetry, or automated blood pressure cuff, as
ectopics are not detected.
She is not on any medications that produce bradycardia.
If blood pressure remains low would consider reduction in losartan.
Would address goals of care at skilled nursing. Currently she is a full code.
Although she may have aortic stenosis I do not think she would be a candidate for intervention, and utility of echocardiography would be very limited
Would consider reduction in opioids, which could be reason for relative lethargy.
No acute indications for hospitalization at this time.
From my standpoint okay to transfer back to the skilled nursing, please call if questions.
Original Note:
Consultation
Consultation Request
Date/Time Consultation Performed: 03/13/24
Requesting Provider: Dr. John
Performing Provider: Kori Cotton PA-C for Dr. YOGI Patel
Reason for Consultation: bradycardia
Medical History
-
Chief Complaint: bradycardia
History of Present Illness:
Patient is an 83-year-old female with past medical history of obesity, asthma, dementia, depression/anxiety, hyperlipidemia, hypertension, osteoarthritis, essential tremor, GERD, who presented to [facility] for evaluation of bradycardia.
She is a resident of [facility]. This morning when staff checked on her she was noted to be more lethargic than her 'normal'. She was noted while there to have a heart rate in the 30s and blood pressure in the 90s systolically.
Her heart rate reportedly persisted in the 40s and paramedics were called. She was placed on oxygen and given some IV fluids with some improvement. Upon arrival to the emergency room patient was without complaints. Upon my examination she does
complain of some abdominal discomfort but does not appear uncomfortable. Initial EKG with sinus rhythm with ventricular bigeminy. Repeat EKG sinus rhythm with heart rates in the 50s. Cardiology consulted for evaluation of bradycardia. She is not
on any AV janell blocking agents as an outpatient. History obtained from records and ER staff and patient with dementia.
PMH:
Obesity
Asthma
Dementia
Depression/anxiety
Hyperlipidemia
Hypertension
Osteoarthritis
Essential tremor
GERD
Past Medical History
Past Medical History: Other (in HPI)
Social History
Living: Skilled Nursing
Employment: Retired
Family History
Family History: Unable to Obtain (dementia)
Allergies / Home Medications
Allergy/AdvReac Type Severity Reaction Status Date / Time
No Known Allergies Allergy Verified 03/13/24 06:18
�Medication �Instructions �Recorded �Confirmed �Type
acetaminophen 325 mg tablet 650 mg PO HS 02/29/24 03/13/24 History
(Tylenol)
acetaminophen 325 mg tablet 650 mg PO Q4HPRN PRN mild pain 02/29/24 03/13/24 History
(Tylenol)
bisacodyl 10 mg rectal suppository 10 mg MD DAILYPRN PRN if no bm 02/29/24 03/13/24 History
(Dulcolax (bisacodyl)) aftr mom
calcium carbonate 1,250 mg PO DAILY 02/29/24 03/13/24 History
carboxymethylcellulose sodium 0.5 1 drp BOTH EYES QID 02/29/24 03/13/24 History
% eye drops (Refresh Tears)
cholecalciferol (vitamin D3) 25 25 mcg PO DAILY 02/29/24 03/13/24 History
mcg (1,000 unit) tablet (Vitamin
D3)
gabapentin 300 mg capsule 300 mg PO TID 02/29/24 03/13/24 History
guaifenesin 100 mg/5 mL oral liquid 200 mg PO Q4HPRN PRN cough 02/29/24 03/13/24 History
losartan 100 mg tablet 100 mg PO DAILY 02/29/24 03/13/24 History
magnesium hydroxide 400 mg/5 mL 30 ml PO [id number] PRN if no bm on 02/29/24 03/13/24 History
oral suspension (Milk of Magnesia) 3rd day
perphenazine 4 mg tablet 4 mg PO BID 02/29/24 03/13/24 History
sodium phosphates 19 gram-7 118 ml MD DAILYPRN PRN if no bm 02/29/24 03/13/24 History
gram/118 mL enema (Fleet Enema) aftr dulcolax
trihexyphenidyl 0.4 mg/mL oral 5 mg PO BID 02/29/24 03/13/24 History
elixir
famotidine 20 mg tablet 20 mg PO DAILY #30 tabs 03/02/24 03/13/24 Rx
ipratropium 0.5 mg-albuterol 3 mg 3 ml inhalation QID 03/13/24 03/13/24 History
(2.5 mg base)/3 mL nebulization
soln
lorazepam 0.5 mg tablet (Ativan) 0.5 mg PO HS 03/13/24 03/13/24 History
Review of Systems
-
History Source: Patient
All other systems: Negative unless noted
Physical Exam
Vital Signs
Temp Pulse Resp BP Pulse Ox
98.5 F 58 13 126/42 97
03/13/24 06:02 03/13/24 06:50 03/13/24 06:50 03/13/24 06:02 03/13/24 06:56
Lab Results
03/13/24 06:16
03/13/24 06:16
Troponin I < 0.012 ng/ml 03/13/24 06:16
Physical Exam
General: No Apparent Distress, Comfortable and Other (on supp O2. obese)
HEENT: Normocephalic, Anicteric and Moist Mucous Membranes
Respiratory: Clear and Non Labored Respirations
Cardiac: S1/S2 and Regular Rhythm
GI: Soft, Non Tender, Non Distended and Normal Bowel Sounds
Musculoskeletal: No Clubbing, No Cyanosis and Edema (trace of B/L LE)
Skin: Warm and Dry
Neuro: Awake, Alert and Oriented (to self, place)
Impression / Plan
-
Primary Day Spa Manager: none
Assessment:
Presentation with lethargy
Relative hypotension
Sinus bradycardia
Frequent PVCs/ventricular bigeminy
Obesity
Asthma
Dementia
Depression/anxiety
Hyperlipidemia
Hypertension
Osteoarthritis
Essential tremor
GERD
Plan:
-Patient presented from skilled nursing due to concern for lethargy with bradycardia and hypotension.
-Initial EKG sinus rhythm with PVCs in pattern of bigeminy. Suspect pseudobradycardia related to frequent PVCs. Telemetry from ER reviewed, no evidence of pauses or high-grade AV block. Patient asymptomatic without complaints of
lightheadedness/dizziness, presyncope, chest discomfort, or abnormal heartbeats.
-Continue to avoid AV janell blocking agents
-No indication for pacemaker at this time
-Could consider echocardiogram
-Check TSH
-Limit opioids as able, possibly contributing to lethargy
-Was given IV fluid in the ER and blood pressure appears to have improved. Could consider decreasing losartan dose if relative hypotension persists as OP
-d/w ER physician
-attempted to call patient's daughter Rosalba and phone number in chart and never rings.
Data Reviewed
-
EKG: Tracing Personally Visualized and interpreted
Labs: Labs Reviewed by me
Old Records: Reviewed
[2024-03-13] MEDS: NSS 500 IV (10:11)
[2024-03-13 11:30] LABS: TSH Reflex To Free T4 5.13 uIU/ml (0.47-4.68)
[2024-03-13 11:59] LABS: Free T4 0.94 ng/dl (0.78-2.19)
[2024-03-13 12:12] LABS: Urine Albumin Trace (Neg - Trace); Urine Bilirubin Negative (Negative); Urine Character Clear (Clear); Urine Color Yellow; Urine Glucose Negative (Negative); Urine Ketone Negative (Negative); Urine Leukocyte 2+ (Negative); Urine Nitrite Negative (Negative); Urine Occult Blood 1+ (Negative); Urine Urobilinogen Negative (Neg - 1+)
[2024-03-13 13:11] LABS: Urine Red Blood Cell 0-2 /HPF (0-2); Urine Squamous Cell 0-2 /LPF (Few); Urine White Cell 50-60 /HPF (0-5)
[2024-03-13 13:12] LABS: Urine Hyaline Cast >15 /LPF (0-2)
[2024-03-13] MEDS: ZOSYN 100 IV (13:30)
--- NOTE | 2024-03-13 14:25 | HPS.HSE ---
Family Physician
-
Family Physician: Sadi Clark
Chief Complaint
-
Hypotension, bradycardia, altered mental status.
History of Present Illness
Patient 83 years old female history of hypertension, anxiety, obesity, among multiple other medical problems, came into the hospital from [facility] for hypotension, bradycardia, and antiemetic status. Patient blood pressure started
to be 98/42 and heart rate was noted to be 37. She was noticed to be confused and lethargic. She was sent over to the hospital for further evaluation. In the ER, she was given IV fluids and oxygen and she seems to be more alert. She does
complain of some right flank discomfort. Denies chest pain or shortness of breath. No fevers or chills. WBC 6.8, UA with 50-60 WBC and positive leukocyte esterase. She had a CT scan of the abdomen that showed staghorn calculus of the right
kidney with minimal hydronephrosis. She was referred to hospitalist for further evaluation.
Medical History
Past Medical History
Past Medical History: Reports Other (Hypertension, hyperlipidemia, GERD, dementia, schizophrenia, depression, bipolar, anxiety, osteoarthritis, asthma/COPD, essential tremors, obesity, chronic pain, probable aortic stenosis.)
Past Surgical History: Reports None
Social History
Tobacco: Non-smoker
Alcohol: None
Drug: None
Family History
Family History: Not pertinent
Allergies / Home Medications
Allergies reflects when Allergies were last updated in [employer].
Home Medications with original date entered in [facility] [employer]
Allergy/Medication List:
Allergies
Allergy/AdvReac Type Severity Reaction Status Date / Time
No Known Allergies Allergy Verified 03/13/24 06:18
Home Medications
acetaminophen 325 mg tablet (Tylenol) 650 mg PO Q4HPRN PRN mild pain/temp>100F 02/29/24
bisacodyl 10 mg rectal suppository (Dulcolax (bisacodyl)) 10 mg NV DAILYPRN PRN if MOM ineffective in 24 hrs 02/29/24
carboxymethylcellulose sodium 0.5 % eye drops (Refresh Tears) 1 drp BOTH EYES QID 02/29/24
cholecalciferol (vitamin D3) 25 mcg (1,000 unit) tablet (Vitamin D3) 25 mcg PO DAILY 02/29/24
gabapentin 300 mg capsule 300 mg PO TID 02/29/24
guaifenesin 100 mg/5 mL oral liquid 200 mg PO Q4HPRN PRN cough 02/29/24
losartan 100 mg tablet 100 mg PO DAILY 02/29/24
magnesium hydroxide 400 mg/5 mL oral suspension (Milk of Magnesia) 30 ml PO [id number] PRN if no BM in 3 days 02/29/24
perphenazine 4 mg tablet 4 mg PO BID 02/29/24
sodium phosphates 19 gram-7 gram/118 mL enema (Fleet Enema) 118 ml NV DAILYPRN PRN if dulcolax ineffective in 24 hrs 02/29/24
trihexyphenidyl 0.4 mg/mL oral elixir 5 mg PO BID 02/29/24
famotidine 20 mg tablet 20 mg PO DAILY #30 tabs 03/02/24
calcium carbonate 500 mg PO DAILY 03/13/24
ipratropium 0.5 mg-albuterol 3 mg (2.5 mg base)/3 mL nebulization soln 3 ml inhalation R QID 03/13/24
lorazepam 0.5 mg tablet 0.5 mg PO DAILY 03/13/24
lorazepam 0.5 mg tablet (Ativan) 0.25 mg PO HS 03/13/24
Review of Systems
-
A 12 point ROS was completed and negative except as noted: Yes
Physical Exam
Vital Signs
Vital Signs
Temp Pulse Resp BP Pulse Ox
98.5 F 66 18 107/75 97
03/13/24 06:02 03/13/24 13:20 03/13/24 13:20 03/13/24 13:00 03/13/24 06:56
Physical exam:
General: Acutely ill
HEENT: Normocephalic, Atraumatic and Moist Mucous Membranes
Respiratory: Clear to Auscultation; Negative Wheezes, Rales or Rhonchi
Cardiac: Regular Rhythm and S1/S2, systolic murmur.
GI: Soft, tender with right flank pain and Nondistended
Musculoskeletal: No Clubbing, No Cyanosis. B/L LE Edema
Neuro: Awake, Alert and Oriented
Psych: Calm
Physical Exam
General: Other
Laboratory Results
-
03/13/24 06:16
03/13/24 06:16
Laboratory Results
Total Bilirubin 0.5 mg/dl (0.2-1.3) 03/13/24 06:16
AST 9 U/L (14-36) L 03/13/24 06:16
ALT 13 U/L (0-35) 03/13/24 06:16
Alkaline Phosphatase 99 U/L (38-126) 03/13/24 06:16
Troponin I < 0.012 ng/ml 03/13/24 06:16
Data Reviewed
-
CT Scan: Image Personally Visualized and interpreted
Lab Data: Labs Reviewed by me
Impression/Plan
-
IMPRESSION:
Patient 83 years old female with multiple comorbidities came into the hospital with hypotension, bradycardia, altered mental status. Patient found to have obstructive urinary stone. Probable UTI/early sepsis. Bradycardia versus
pseudo-bradycardia. In light of her presentation and increased risk of morbidity mortality if indeed active infection brewing patient will need to be in the for further management and evaluation.
PLAN:
UTI, rule out early sepsis:
IV fluid
IV antibiotic
Follow-up cultures
Obstructive ureteral stone with hydronephrosis:
Straight cath as needed
IV fluid
Urology consult (discussed with urology today and he will see her later today)
Hypotension:
Etiology either dehydration versus medication related versus infection
Hold antihypertensive
Monitor blood pressure closely
IV fluids and antibiotic and reevaluate
Bradycardia:
Actually pseudo-bradycardia related to PVCs and bigeminy
Cardiology consult appreciated and no need for any intervention for now
Cardiac monitoring
Altered mental status:
Due to acute metabolic encephalopathy probably related to medications (benzodiazepine and gabapentin) versus infection related
Hold benzodiazepine today and restart tomorrow to avoid withdrawal
Monitor mental status closely
Probable aortic stenosis:
Per cardiology no need for further workup
DVT prophylaxis:
Lovenox SQ
CODE STATUS:
Full code
Time spent 75 minutes
[2024-03-13] MEDS: DUONEB 3 ML INH ×2 (15:51→19:53)
--- NOTE | 2024-03-13 17:33 | CON.MD ---
Consultation - Medical
-
see dictated note
pt with no known gu hx
she can provide no coherent hx
recently admitted with proteus UTI
readmitted with lethargy- ? MAS and some lower abd pain
no fevers/nl wbc
ct indicated distended bladder- was cath's in ER for urine sample
ct also shows right staghorn stone
pt resting comfortably now
very difficult situation given pt's hx and body habitus
no acute indication for surgical intervention
not toxic
check pvr's- may need oliva if not emptying
very poor operative candidate for stone- but will never clear UTI with it in- will try and contact daughter to review options/goals of care
[2024-03-13] MEDS: ROCEPHIN 1000 MG IV (17:46)
[2024-03-13] MEDS: STERILE WATER FOR INJECTION 10 ML IV (17:46)
[2024-03-13] MEDS: NSS 1000 IV (17:46)
[2024-03-13] MEDS: TYLENOL 650 MG PO ×2 (17:46→21:28)
[2024-03-13] MEDS: LOVENOX 40 MG SC (17:47)
[2024-03-13] MEDS: FLUSH (NSS) 2 FLUSH IV (17:47)
[2024-03-14] VITALS (7 sets, daily range): BP systolic 122–149; BP diastolic 46–94; PULSE 70; O2SAT 91; BMI 48.7
[2024-03-14] MEDS: TYLENOL PO ×2 (01:11→04:46)
[2024-03-14] MEDS: NSS 1000 IV (06:00)
[2024-03-14] MEDS: DUONEB 3 ML INH ×4 (07:53→20:21)
[2024-03-14 08:20] LABS: % Basophils 0.2 % (0-2); % Eosinophils 3.7 % (0-6); % Immature Granulocytes 0.5 % (0-0.5); % Lymphocytes 24.7 % (20.5-51.1); % Monocytes 8.5 % (1.7-9.3); % Neutrophils 62.4 % (42.2-75.2); Absolute Eosinophils 0.2 10^3/uL (0-0.7); Absolute Lymphocytes 1.1 10^3/uL (1.2-3.4); Absolute Monocytes 0.4 10^3/uL (0.1-0.6); Absolute Neutrophils 2.7 10^3/uL (1.4-6.5); Hematocrit 36.6 % (37.0-47.0); Hemoglobin 11.6 g/dL (12.0-16.0); Mean Corp Hgb Conc. 31.7 g/dL (33.0-37.0); Mean Corpuscular Volume 94.6 fL (81.0-99.0); Mean Platelet Volume 11.9 fL (7.4-10.4); Nucleated Red Blood Cells % 0 %; Platelet Count 133 10^3/uL (130-400); Red Blood Cell Count 3.87 10^6/uL (4.20-5.40); Red Cell Dist. Width 13.5 % (11.5-14.5); White Blood Cell Count 4.4 10^3/uL (4.8-10.8)
[2024-03-14] MEDS: PEPCID 20 MG PO (08:25)
[2024-03-14] MEDS: TYLENOL 650 MG PO ×4 (08:25→20:25)
[2024-03-14 08:34] LABS: Blood Urea Nitrogen 18 mg/dl (7-17); Calcium 9.9 mg/dl (8.4-10.2); Carbon Dioxide 29 mmol/L (22-30); Chloride 107 mmol/L (98-107); Estimated Creatinine Clearance 88 ml/min; Glucose 93 mg/dl (70-99); Potassium 4.9 mmol/L (3.5-5.1); Sodium 141 mmol/L (135-145); eGFR > 60.00
--- NOTE | 2024-03-14 08:59 | W.PN.URO.CBU ---
Today's Communication / Plan
-
stable
no gu intervention planned
Assessment / Plan
-
intermittent urinary retention
hx of UTI- proteus
right staghorn stone
pt currently emptying bladder
no evid of sepsis or symptomatic UTI
stone is likely chronic- and her urine will always be + with this calculus
I do not see any acute gu issues at this time- her retention seems to be intermittent and would accept pvr's under 350c to avoid a oliva
Also- given her stone burden,body habitus and dementia she is an extremely poor operative candidate
I have tried to contact daughter regarding status/desire for intervention/goals of care- no answer
at this point- would rec daily methenamine 1 gram to reduce symptomatic UTI's
when available can discuss with family limited options- this could also be done as an outpt if pt is cleared for discharge medically
Diagnosis
-
Date of Service: March 14, 2024
-
Patient Diagnosis:
partial urinary retention
UTI
right staghorn kidney stone
Subjective
-
pt awake and talkative- but difficult to discern any specific complaints
has been urinating- last pvr under 100cc
no fevers and wbc normal
Objective
-
Vital Signs
Temp Pulse Resp BP Pulse Ox
98.1 F 50 20 136/94 95
03/14/24 07:37 03/14/24 07:56 03/14/24 07:56 03/14/24 07:37 03/14/24 07:56
Intake and Output
03/13/24 03/14/24 03/15/24
06:59 06:59 06:59
Intake Total 407 / 407
Output Total 450 / 450
Balance -43 / -43
Intake:
Oral fluids 357 / 357
IV fluids (Total) 50 / 50
Output:
Urine, Voided 450 / 450
Other:
How many times incontinent 4
SATURATED amount urine
Laboratory Results
03/14/24 07:20
03/14/24 07:20
Review of Systems
-
Unable to obtain full review of systems at this time due to: Dementia
Physical Exam
-
General - no acute distress
Abdomen - soft, obese
--- NOTE | 2024-03-14 09:58 | W.PN.HOSP.TC ---
Today's Communication/Plan
-
IV antibiotics. Bowel regimen. PT OT
Assessment / Plan
Assessment / Plan
Physical exam:
General: Well Developed, Well Nourished and No Apparent Distress
HEENT: Normocephalic, Atraumatic and Moist Mucous Membranes
Respiratory: Clear to Auscultation; Negative Wheezes, Rales or Rhonchi
Cardiac: Regular Rhythm and S1/S2
GI: Soft, Nontender and Nondistended
Musculoskeletal: No Clubbing, No Cyanosis and No Edema
Neuro: Awake, Alert and Oriented
Psych: Calm
A/P:
Concerns for UTI. Ruled out sepsis:
Stop IV fluid
Continue IV antibiotic and change to oral tomorrow
Follow-up cultures-so far no growth
Appreciated urology consult
PT OT eval
tax accounting manager for discharge disposition back to SNF
Plan to discharge in a.m. if accepted back
Obstructive ureteral stone with hydronephrosis:
Urology will discuss with family but noticed and agree poor surgical candidate
Outpatient follow-up with urology
Abdominal pain:
Most likely related to constipation rather than nephrolithiasis
Start aggressive bowel regimen
Continue to monitor
Hypotension:
Resolved
Etiology either dehydration versus medication related versus infection
Held antihypertensive--> will reintroduce at a lower dose. Losartan 50 mg daily (patient was on 100 mg daily)
Monitor blood pressure closely
IV fluids and antibiotic and reevaluate
Bradycardia:
Actually pseudo-bradycardia related to PVCs and bigeminy
Cardiology consult appreciated and no need for any intervention for now
Discontinue cardiac monitoring
Altered mental status:
Due to acute metabolic encephalopathy probably related to medications (benzodiazepine and gabapentin) versus infection related
Held benzodiazepine and restart today to avoid withdrawal.
Continue to hold gabapentin
Monitor mental status
Probable aortic stenosis:
Per cardiology no need for further workup
DVT prophylaxis:
Lovenox SQ
CODE STATUS:
Full code
Anticipated Discharge: 24 - 48 hours
Subjective/Interval History
-
Date of Service: March 14, 2024
Patient more alert today. Complains of abdominal discomfort and no bowel movement. Blood pressure stable. Afebrile
Objective Data
-
Labs:
Laboratory Results
03/14/24
07:20
WBC 4.4 L
Hgb 11.6 L
Hct 36.6 L
Plt Count 133
Sodium 141
Potassium 4.9
Chloride 107
Carbon Dioxide 29
BUN 18 H
Creatinine 0.6
Glucose 93
Calcium 9.9
Vital Signs:
Vital Signs
Temp Pulse Resp BP Pulse Ox
98.1 F 50 20 136/94 95
03/14/24 07:37 03/14/24 07:56 03/14/24 07:56 03/14/24 07:37 03/14/24 07:56
I&O
03/13/24 03/14/24 03/15/24
06:59 06:59 06:59
Intake Total 407 / 407
Output Total 450 / 450
Balance -43 / -43
[2024-03-14] MEDS: MIRALAX 17 GRAMS PO (13:37)
[2024-03-14] MEDS: SENOKOT 8.59999999999999964 MG PO ×2 (13:37→20:25)
--- NOTE | 2024-03-14 13:41 | CM ---
CM consulted for NH placement. 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
CM will follow to facilitate discharge to [facility] when medically ready.
[facility]
Report: [phone]
--- NOTE | 2024-03-14 16:00 | PTCARENOTE ---
Dr. Ansari made aware pt. HR 35 while sleeping but Pt. easily arousable. Dr. Ansari to order to resume Cozaar tomorrow and not this afternoon.
[2024-03-14] MEDS: ROCEPHIN 1000 MG IV (16:43)
[2024-03-14] MEDS: STERILE WATER FOR INJECTION 10 ML IV (16:43)
[2024-03-14] MEDS: LOVENOX 40 MG SC (16:44)
[2024-03-14] MEDS: ATIVAN 0.25 MG PO (22:59)
--- NOTE | 2024-03-15 01:05 | PTCARENOTE ---
At 2034 patient stated she felt short of breath, pulse ox 96% on 2L. Heart rate 31-36 on pulse ox, patient also stated, 'I feel something with my heart'. PUBLIC AFFAIRS DIRECTOR made aware, orders for EKG, stat CXR, and AM labs. EKG obtained showing sinus with
frequent PVC complexes in a pattern of bigeminy, pulse of 64. Other VSS. Plan of care ongoing.
[2024-03-15] MEDS: TYLENOL PO ×2 (01:31→05:06)
[2024-03-15 06:00] VITALS: BMI 48.5
[2024-03-15 07:17] LABS: Blood Urea Nitrogen 14 mg/dl (7-17); Calcium 10.4 mg/dl (8.4-10.2); Carbon Dioxide 25 mmol/L (22-30); Chloride 109 mmol/L (98-107); Estimated Creatinine Clearance 87 ml/min; Glucose 91 mg/dl (70-99); Magnesium 1.7 mg/dl (1.6-2.3); Potassium 4.7 mmol/L (3.5-5.1); Sodium 139 mmol/L (135-145); eGFR > 60.00
[2024-03-15 07:25] LABS: NT-proBNP 625 pg/ml
--- NOTE | 2024-03-15 07:55 | PTCARENOTE ---
Dr. Ansari made aware pt. with c/o chest pain over night and results of EKG and CXR. New orders to follow. Pt. resting in bed at this time with no c/o pain, VSS. Will continue to monitor and report on pt.
[2024-03-15] MEDS: DUONEB 3 ML INH ×4 (07:58→19:41)
[2024-03-15 08:00] VITALS: BP 142/72
--- NOTE | 2024-03-15 08:26 | W.PN.URO.CBU ---
Today's Communication / Plan
-
cleared urologically for discharge
Assessment / Plan
-
intermittent urinary retention
hx of UTI- proteus
right staghorn stone
pt currently emptying bladder
no evid of sepsis or symptomatic UTI- in fact urine culture negative
stone is likely chronic- and her urine will always be + with this calculus
I do not see any acute gu issues at this time- her retention seems to be intermittent and would accept pvr's under 350c to avoid a oliva
Also- given her stone burden,body habitus and dementia she is an extremely poor operative candidate
I have tried to contact daughter regarding status/desire for intervention/goals of care- no answer
at this point- would rec daily methenamine 1 gram to reduce symptomatic UTI's
when available can discuss with family limited options- this could also be done as an outpt if pt is cleared for discharge medically
Diagnosis
-
Date of Service: March 15, 2024
-
Patient Diagnosis:
partial urinary retention
UTI
right staghorn kidney stone
Subjective
-
pt stable
pvr's remains below 300cc
no fevers
no urologic complaints
urine culture suprisingly no growth
Objective
-
Vital Signs
Temp Pulse Resp BP Pulse Ox
98.4 F 56 18 129/46 98
03/14/24 22:28 03/15/24 08:00 03/15/24 08:00 03/14/24 22:55 03/15/24 08:00
Intake and Output
03/14/24 03/15/24 03/16/24
06:59 06:59 06:59
Intake Total 407 / 407 855 / 855
Output Total 450 / 450 675 / 675
Balance -43 / -43 855 / 855 -675 / -675
Intake:
Oral fluids 357 / 357 600 / 600
IV fluids (Total) 50 / 50 255 / 255
Output:
Urine, Voided 450 / 450 144 / 796
Other:
How many times incontinent 4
SATURATED amount urine
Laboratory Results
03/14/24 07:20
03/15/24 06:24
Physical Exam
-
General - no acute distress
[2024-03-15] MEDS: SENOKOT 8.59999999999999964 MG PO (08:33)
[2024-03-15] MEDS: TYLENOL 650 MG PO ×4 (08:33→20:43)
[2024-03-15] MEDS: LASIX 20 MG IV (08:33)
[2024-03-15] MEDS: MIRALAX 17 GRAMS PO (08:33)
[2024-03-15] MEDS: COZAAR 50 MG PO (08:33)
[2024-03-15] MEDS: PEPCID 20 MG PO (08:33)
--- NOTE | 2024-03-15 08:55 | W.PN.HOSP.TC ---
Today's Communication/Plan
-
IV Lasix. Trend troponins. Antibiotics
Assessment / Plan
Assessment / Plan
Physical exam:
General: Acute on chronically ill
HEENT: Normocephalic, Atraumatic and Moist Mucous Membranes
Respiratory: Clear to Auscultation; Negative Wheezes, Rales or Rhonchi
Cardiac: Regular Rhythm and S1/S2
GI: Soft, Nontender and Nondistended
Musculoskeletal: No Clubbing, No Cyanosis and No Edema
Neuro: Awake, Alert and Oriented
Psych: Calm
A/P:
Concerns for UTI. Ruled out sepsis:
Change IV Rocephin to oral methenamine per urology recommendations
Off IVF
Follow-up cultures-so far no growth
Appreciated urology consult
PT OT eval
publications manager for discharge disposition back to SNF
Plan to discharge in a.m. if accepted back
Obstructive ureteral stone with hydronephrosis:
Urology will discuss with family but noticed and agree poor surgical candidate
Outpatient follow-up with urology
Chest pain and abnormal chest x-ray concerns for acute diastolic CHF:
Chest x-ray with features suggestive of CHF and she had received some IV fluids.
Lasix 20 mg IV x 1 today.
BNP 625
Troponin <0.012 and trend
EKG
Abdominal pain:
Most likely related to constipation rather than nephrolithiasis
Start aggressive bowel regimen
Continue to monitor
Hypotension:
Resolved
Etiology either dehydration versus medication related versus infection
Held antihypertensive--> will reintroduce at a lower dose. Losartan 50 mg daily (patient was on 100 mg daily)
Monitor blood pressure closely
IV fluids and antibiotic and reevaluate
Bradycardia:
Actually pseudo-bradycardia related to PVCs and bigeminy
Cardiology consult appreciated and no need for any intervention for now
Discontinue cardiac monitoring
Altered mental status:
Due to acute metabolic encephalopathy probably related to medications (benzodiazepine and gabapentin) versus infection related
Held benzodiazepine and restart today to avoid withdrawal.
Continue to hold gabapentin
Monitor mental status
Probable aortic stenosis:
Per cardiology no need for further workup
GERD:
On H2 rubina but change to PPI
DVT prophylaxis:
Lovenox SQ
CODE STATUS:
Full code
Anticipated Discharge: 24 - 48 hours
Subjective/Interval History
-
Date of Service: March 15, 2024
Patient had chest pain and shortness of breath overnight. Feels better today.
Objective Data
-
Labs:
Laboratory Results
03/15/24
06:24
Sodium 139
Potassium 4.7
Chloride 109 H
Carbon Dioxide 25
BUN 14
Creatinine 0.5 L
Glucose 91
Calcium 10.4 H
Vital Signs:
Vital Signs
Temp Pulse Resp BP Pulse Ox
97.2 F 56 18 142/72 93
03/15/24 08:00 03/15/24 08:00 03/15/24 08:00 03/15/24 08:00 03/15/24 08:00
I&O
03/14/24 03/15/24 03/16/24
06:59 06:59 06:59
Intake Total 407 / 407 855 / 855
Output Total 450 / 450 675 / 675
Balance -43 / -43 855 / 855 -675 / -675
[2024-03-15 08:58] LABS: Troponin I < 0.012 ng/ml
[2024-03-15] MEDS: PROTONIX 40 MG PO (09:32)
[2024-03-15] MEDS: HIPREX 1 GRAM PO (09:32)
[2024-03-15 11:19] VITALS: BP 140/61
[2024-03-15] MEDS: ATIVAN 0.5 MG PO (12:27)
[2024-03-15 15:00] VITALS: BP 119/63
[2024-03-15] MEDS: LOVENOX 40 MG SC (17:12)
[2024-03-15] MEDS: SENOKOT PO (20:42)
[2024-03-15] MEDS: ATIVAN 0.25 MG PO (20:43)
[2024-03-15 23:52] VITALS: BP 136/64
[2024-03-16] MEDS: TYLENOL PO ×2 (00:11→04:33)
[2024-03-16 06:00] VITALS: BMI 48.5
[2024-03-16 07:30] VITALS: BP 139/58
[2024-03-16] MEDS: DUONEB 3 ML INH ×2 (07:59→11:23)
[2024-03-16 08:34] LABS: Hematocrit 37.5 % (37.0-47.0); Hemoglobin 12.2 g/dL (12.0-16.0); Mean Corp Hgb Conc. 32.5 g/dL (33.0-37.0); Mean Corpuscular Hgb 30.1 pg (27.0-31.0); Mean Corpuscular Volume 92.6 fL (81.0-99.0); Mean Platelet Volume 12.2 fL (7.4-10.4); Platelet Count 140 10^3/uL (130-400); Red Blood Cell Count 4.05 10^6/uL (4.20-5.40); Red Cell Dist. Width 13.3 % (11.5-14.5); White Blood Cell Count 5.8 10^3/uL (4.8-10.8)
--- NOTE | 2024-03-16 08:36 | W.PN.HOSP.TC ---
Today's Communication/Plan
-
Wean oxygen to off
Discharge planning
Assessment / Plan
Assessment / Plan
Physical exam:
General: Acute on chronically ill
HEENT: Normocephalic, Atraumatic and Moist Mucous Membranes
Respiratory: Clear to Auscultation; Negative Wheezes, Rales or Rhonchi
Cardiac: Regular Rhythm and S1/S2
GI: Soft, Nontender and Nondistended
Musculoskeletal: No Clubbing, No Cyanosis and No Edema
Neuro: Awake, Alert and Oriented
Psych: Calm
A/P:
UTI, sepsis ruled out.
Follow-up cultures-so far no growth
Appreciated urology consult. Right-sided staghorn calculus noted, outpatient follow-up. Poor operative candidate.
PT OT eval
manager ambulatory for discharge disposition back to [facility]
Obstructive ureteral stone with hydronephrosis:
Urology will discuss with family but noticed and agree poor surgical candidate
Outpatient follow-up with urology
Chest pain and abnormal chest x-ray concerns for acute diastolic CHF:
Chest x-ray with features suggestive of CHF and she had received some IV fluids.
Given 1 dose of IV Lasix 20 mg yesterday. Weight remains unchanged over past 24 hours but is down 2 kg since admission. Currently on 2 L nasal cannula oxygen, wean to off if tolerated.
BNP 625
Troponin negative
Abdominal pain:
Most likely related to constipation rather than nephrolithiasis
Start aggressive bowel regimen
Has had multiple bowel movements over the past 24 hours. Abdominal exam benign.
Hypotension: Resolved
Etiology either dehydration versus medication related versus infection
Held antihypertensive--> will reintroduce at a lower dose. Losartan 50 mg daily (patient was on 100 mg daily)
Monitor blood pressure closely
IV fluids and antibiotic and reevaluate
Bradycardia:
Actually pseudo-bradycardia related to PVCs and bigeminy
Cardiology consult appreciated and no need for any intervention for now
Discontinue cardiac monitoring
Altered mental status:
Due to acute metabolic encephalopathy probably related to medications (benzodiazepine and gabapentin) versus infection related
Held benzodiazepine and restart today to avoid withdrawal.
Continue to hold gabapentin
Monitor mental status
Probable aortic stenosis:
Per cardiology no need for further workup
GERD:
On H2 rubina but change to PPI
History of hypercalcemia -would follow-up as outpatient. Calcium yesterday 10.4.
DVT prophylaxis:
Lovenox SQ
CODE STATUS:
Full code
Dispo -anticipate discharge back to [facility] today if stable.
Anticipated Discharge: Today
Subjective/Interval History
-
Date of Service: March 16, 2024
Patient seen and examined. No complaints.
Objective Data
-
Labs:
Laboratory Results
03/16/24
07:44
WBC Pending
Hgb Pending
Hct Pending
Plt Count Pending
Sodium Pending
Potassium Pending
Chloride Pending
Carbon Dioxide Pending
BUN Pending
Creatinine Pending
Glucose Pending
Calcium Pending
Vital Signs:
Vital Signs
Temp Pulse Resp BP Pulse Ox
97.8 F 56 18 136/64 95
03/15/24 23:52 03/16/24 08:01 03/16/24 08:01 03/15/24 23:52 03/16/24 08:01
I&O
03/15/24 03/16/24 03/17/24
06:59 06:59 06:59
Intake Total 855 / 855 360 / 360
Output Total 1949 / 1949
Balance 855 / 855 -1590 / -1590
Review of Systems
-
History Source: Patient
All other systems: Reviewed and negative
[2024-03-16 08:51] LABS: Blood Urea Nitrogen 11 mg/dl (7-17); Calcium 10.5 mg/dl (8.4-10.2); Carbon Dioxide 31 mmol/L (22-30); Chloride 106 mmol/L (98-107); Estimated Creatinine Clearance 87 ml/min; Glucose 95 mg/dl (70-99); Potassium 4.6 mmol/L (3.5-5.1); Sodium 138 mmol/L (135-145); eGFR > 60.00
--- NOTE | 2024-03-16 08:51 | W.DS.TRANS ---
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
-
Discharge Instructions:
Discharge Diagnosis/Procedures Nephrolithiasis
Diet 2 Gram Sodium,Low Cholesterol,Low Fat
Activity As tolerated,With assistance
Driving Restrictions No driving
Bathing Restrictions None
Instructions:
Stand-Alone Forms:
Changes to Home Medications: Yes
Discharge Medications:
DC Medications w/original date entered in [employer]
acetaminophen 325 mg tablet (Tylenol) 650 mg PO Q4HPRN PRN mild pain/temp>100F 02/29/24
carboxymethylcellulose sodium 0.5 % eye drops (Refresh Tears) 1 drp BOTH EYES QID Eye Condition 02/29/24
cholecalciferol (vitamin D3) 25 mcg (1,000 unit) tablet (Vitamin D3) 25 mcg PO DAILY Supplement 02/29/24
gabapentin 300 mg capsule 300 mg PO TID Pain 02/29/24
guaifenesin 100 mg/5 mL oral liquid 200 mg PO Q4HPRN PRN cough 02/29/24
magnesium hydroxide 400 mg/5 mL oral suspension (Milk of Magnesia) 30 ml PO [id number] PRN if no BM in 3 days 02/29/24
perphenazine 4 mg tablet 4 mg PO BID Mental Health/Anxiety 02/29/24
sodium phosphates 19 gram-7 gram/118 mL enema (Fleet Enema) 118 ml AR DAILYPRN PRN if dulcolax ineffective in 24 hrs 02/29/24
trihexyphenidyl 0.4 mg/mL oral elixir 5 mg PO BID Mental Health/Anxiety 02/29/24
famotidine 20 mg tablet 20 mg PO DAILY #30 tabs 03/02/24
calcium carbonate 500 mg PO DAILY Supplement 03/13/24
ipratropium 0.5 mg-albuterol 3 mg (2.5 mg base)/3 mL nebulization soln 3 ml inhalation R QID Lung/Breathing Issues 03/13/24
bisacodyl 10 mg rectal suppository 10 mg AR DAILYPRN PRN constipation #0 ea 07/08/24
lorazepam 0.5 mg tablet 0.5 mg PO DAILY Mental Health/Anxiety #3 tabs 03/16/24
lorazepam 0.5 mg tablet (Ativan) 0.25 mg (1/2 x 0.5 mg) PO HS Mental Health/Anxiety #3 tabs 03/16/24
losartan 50 mg tablet 50 mg PO DAILY #0 tabs 03/16/24
methenamine hippurate 1 gram tablet 1 g PO DAILY #0 tabs 03/16/24
polyethylene glycol 3350 17 gram oral powder packet (HealthyLax) 17 g PO DAILYPRN PRN constipation #0 ea 03/16/24
sennosides 8.6 mg-docusate sodium 50 mg tablet (Stool Softener-Laxative) 1 tab PO BIDPRN PRN constipation #0 tabs 03/16/24
Home Medication Changes
Losartan dose reduced to 50 mg daily.
Pending Results: No
[2024-03-16] MEDS: SENOKOT PO (10:17)
[2024-03-16] MEDS: HIPREX 1 GRAM PO (10:17)
[2024-03-16] MEDS: PROTONIX 40 MG PO (10:17)
[2024-03-16] MEDS: MIRALAX PO (10:18)
[2024-03-16] MEDS: COZAAR 50 MG PO (10:18)
[2024-03-16] MEDS: ATIVAN 0.5 MG PO (10:19)
[2024-03-16] MEDS: TYLENOL 650 MG PO (10:19)
[2024-03-16] MEDS: FLUSH (NSS) 1 FLUSH IV (10:20)
--- NOTE | 2024-03-16 11:08 | CM ---
Addendum entered by Laurel Villanueva 03/16/24 11:59:
12:00 p.m. ambulance transport scheduled for return to [facility].
[facility]
Report: [phone]

Original Note:
CM with Vania, liaison from [facility], able to accept patient back, [facility] Patient seen bedside, talking about getting a new pocketbook and new makeup. Patient will require ambulance transport, provided to community health specialist. CM
placed call to patients daughter to review IMM as patient has Dementia, phone number not in service. CM will continue to follow for all discharge planning needs.
Plan; return to [facility], awaiting ambulance transport time.
[2024-03-16 11:23] VITALS: BP 132/52
[2024-03-16 12:10] VITALS: BP 95/52
[2024-03-16 12:13] VITALS: BP 122/71
== END 2024-03-16 12:25 | DRG 693 ==
LOC: 4 EAST ACU 14:27
PROVIDERS: Nurse Practitioner Family; ADMITTING PHYSICIAN Hospitalist; ATTENDING PHYSICIAN Hospitalist; CONSULT PHYSICIAN Internal Medicine Cardiovascular Disease; CONSULT PHYSICIAN Specialist; EMERGENCY PHYSICIAN Emergency Medicine; FAMILY PHYSICIAN Internal Medicine
DX: N13.2 Hydronephrosis with renal and ureteral calculous obstruction (principal); G93.41 Metabolic encephalopathy; I50.31 Acute diastolic (congestive) heart failure; Z68.42 Body mass index [BMI] 45.0-49.9, adult; R07.89 Other chest pain; N39.0 Urinary tract infection, site not specified; E66.01 Morbid (severe) obesity due to excess calories
CPT/HCPCS: 71045; 74177; 80048; 80053; 81003; 81015; 83735; 83880; 84439; 84443; 84484; 85025; 85027; 87070; 87086; 93005; 94640; 96361; 96374; 97163; 97167; 99285; Q9967

== ENCOUNTER 2024-09-24 21:22 | Inpatient (IN) | payer MEDICARE, OTHER, SELFPAY ==
[2024-09-24 18:02] VITALS: BP 124/59
[2024-09-24 18:15] LABS: % Basophils 0.3 % (0-2); % Eosinophils 2.9 % (0-6); % Immature Granulocytes 0.5 % (0-0.5); % Lymphocytes 26.7 % (20.5-51.1); % Neutrophils 61.6 % (42.2-75.2); Absolute Eosinophils 0.2 10^3/uL (0-0.7); Absolute Lymphocytes 1.6 10^3/uL (1.2-3.4); Absolute Monocytes 0.5 10^3/uL (0.1-0.6); Absolute Neutrophils 3.6 10^3/uL (1.4-6.5); Hematocrit 42.6 % (37.0-47.0); Hemoglobin 13.3 g/dL (12.0-16.0); Mean Corp Hgb Conc. 31.2 g/dL (33.0-37.0); Mean Corpuscular Hgb 29.3 pg (27.0-31.0); Mean Corpuscular Volume 93.8 fL (81.0-99.0); Mean Platelet Volume 11.4 fL (7.4-10.4); Nucleated Red Blood Cells % 0 %; Platelet Count 151 10^3/uL (130-400); Red Blood Cell Count 4.54 10^6/uL (4.20-5.40); Red Cell Dist. Width 13.9 % (11.5-14.5); White Blood Cell Count 5.9 10^3/uL (4.8-10.8)
--- NOTE | 2024-09-24 18:18 | ED.GENMED ---
History of Present Illness
General
Chief Complaint: Change in Mental Status
Time Seen by Provider: 09/24/24 18:14
History of Present Illness
History of Present Illness:
TIME OF INITIAL ENCOUNTER:
HPI: She comes in from [facility] by ambulance due to a change in mental status. I am told that she is normally 'alert and oriented x 3 'however she does have a history of cognitive deficits as well. She was only oriented to self. She is
also found to be hypoxic prior to arrival.
EXAM:
GENERAL: The patient is chronically ill in appearance and appears encephalopathic
HEENT: Dry oral mucosa
CARDIOVASCULAR: No murmurs, normal heart rate, regular rhythm, No chest wall tenderness
PULMONARY: No respiratory distress, breath sounds are somewhat diminished
ABDOMEN: Soft with no peritoneal signs, no tenderness
NEUROLOGIC: Fair strength all extremities, no coordination deficits
PSYCHIATRIC: Poor insight and judgment with poor memory
EXTREMITIES: Nontender, no edema, moves all extremities equally
SKIN: No rash, no lesions
NUMBER AND COMPLEXITY OF PROBLEMS ADDRESSED AT THE ENCOUNTER
� Chronic conditions affecting care: Records indicate the patient has cognitive deficits, dementia, high blood pressure, anxiety/depression, schizophrenia
� Acute Exacerbation and/or Progression of Chronic Illness:
� Differential Diagnosis includes: UTI, anemia, sepsis, pneumonia, viral syndrome, dehydration, [place], worsening mental illness
AMOUNT AND/OR COMPLEXITY OF DATA TO BE REVIEWED AND ANALYZED
� I performed an independent evaluation of and my interpretation is:
EKG: Sinus 55, left axis deviation, nonspecific ST abnormality
CT:
X-rays: Chest x-ray suggests degree of heart failure.
Laboratory Studies: White count is normal at 5.9, hemoglobin 13.3, bicarb is 32, BUN is higher than prior
Other:
� Review of other/old records: The patient was admitted with a UTI in March of last year�at that time the patient was confused and was hypotensive and bradycardic.
� Clinical information was obtained by an independent historian: I called Mendy Dunbar below
� Prescriptions/Medications Considered but not given:
� Further testing considered but not performed:
RISK OF COMPLICATIONS AND/OR MORBIDITY OR MORTALITY OF PATIENT MANAGEMENT
� Social determinants of health affecting care: Resides at [facility]
� Discussion with other providers: Hospitalist for admission
� Escalation of care including admission/observation vs risk of discharge considered:
ANY OTHER UPDATES:
7:40 PM: I called Mendy Coronel to obtain additional history. At baseline, the patient is oriented times '2-3', she normally does not require any oxygen but now required oxygen and was sent here for further evaluation. Consider possibility of
hypercapnic respiratory failure. pCO2 is similar to prior. Held off on BiPAP. BNP is unremarkable. Urinalysis suggest the possibility of infection.
Past History
Past History
ED Past Medical History: HTN and Psychiatric (Schizophrenia)
ED Past Surgical History: None
Social History
Tobacco: Non-smoker
Alcohol: None
Drug: None
Living: retirement
Family History
Family History: Other
Phy Exam
Physical Exam
Physical Exam:
See HPI
Course
Orders/Labs/Results
Orders:
Orders
09/24/24 Dinner
Cholesterol Lowering
At Your Request: Non-Participating
Cholesterol Lowering: Sodium, 2 Gram
09/24/24 18:07
EKG [Electrocardiogram (*1)] Urgent
Reason for Study: Tachycardia
EKG- Treatment ONCE
09/24/24 18:09
Basic Metabolic Panel Urgent
Complete Blood Count/With Diff Urgent
09/24/24 18:14
CR Chest Portable - 1 View Urgent
Comment:
Reason For Exam: hypoxia
Reason Study Needs to be Portable: Patient Unstable
09/24/24 18:18
0.9% Sodium Chloride 500 ml [Nss] 500 ml IV BOLUS
09/24/24 18:24
COVID-19 Antigen Urgent
Source: Nasal Swab
Urinalysis Reflex To Culture Urgent
Date Specimen was Collected: 09/24/24
Time Specimen was Collected: 18:07
Urine Microscopic Reflex Cult Urgent
Influenza A+B Rapid Molecular Urgent
VARUN Source: Nasal Swab
Specimen Description:
Urine Culture Urgent
VARUN Source: U
Specimen Description:
Date Specimen was Collected: 09/24/24
Time Specimen was Collected: 18:07
09/24/24 19:42
CefTRIAXone [Rocephin] 1,000 mg IV NOW STA
09/24/24 19:56
Pro-BNP [NT-proBNP] Urgent
09/24/24 20:20
ABG [Arterial Blood Gas] Urgent
%Oxygen/Room Air: 2lpm
09/24/24 20:38
Ipratropium/Albuterol Sulfate [Duoneb] 3 ml INH R NOW STA
MethylPREDNISolone PF [Solu-Medrol Pf] 60 mg IV NOW STA
09/24/24 20:54
Admit/Transfer Patient As Directed
Co-Sign Provider:
Level of Care: Inpatient admission
Assign to:: Telemetry
Physician / Group: hospitalist
Diagnosis: altered mental status
Reason for Telemetry: Subacute Heart Failure
Date to Stop Telemetry: 09/26/24
Time to Stop Telemetry: 11:00
Reason for Hospitalization: altered mental status
Expected length of stay greater than two midnights?: Yes
ELOS- Estimated Length of Stay in days: 2
I certify the patient meets the requirements for IP care: Yes
PRN Pain Medication Management As Directed
May give lesser potent ordered pain med per pt: Yes
preference::
Protocol:: Medication orders for pain may be administered in a
manner that supports deferring to patient preference
when the pt is:
- Requesting an ordered lesser potent pain medication.
Least to most potent pain medications are defined
as: acetaminophen < NSAID < tramadol < opioids
(morphine, oxycodone, hydromorphone).
- Requesting a lesser dose of the same medication IF
ORDERED.
- Requesting a less intrusive route of administration
if both routes are prescribed by the provider (PO <
IV).
09/24/24 20:56
Code Status As Directed
Resuscitation Status: Full Code
09/24/24 21:02
Furosemide [Lasix] 20 mg IV NOW STA
09/24/24 21:50
Acetaminophen [Tylenol] 650 mg PO Q6HPRN PRN
Bisacodyl [Dulcolax] 10 mg RECTAL DAILYPRN PRN
Guaifenesin Solution [Robitussin] 200 mg PO Q4HPRN PRN
Ipratropium/Albuterol Sulfate [Duoneb] 3 ml INH R Q4HPRN PRN
Magnesium Hydroxide [Milk of Magnesia] 30 ml PO HSPRN PRN
Polyethylene Glycol Powder [Miralax] 17 grams PO DAILYPRN PRN
09/24/24 21:50
Activity As Directed
Activity Level: With Assistance
Intake/ Output As Directed
Frequency: Per unit guidelines
Patient Education As Directed
Type: CHF folder
Comment: give on admission. Document in Interdisciplinary Education record
Sleep Apnea Assessment by RN As Directed
Comment:
Physician Instructions:
Vital Signs As Directed
Frequency: Other
Additional Instructions:: Q12 or per unit guidelines if more frequent.
Weight As Directed
Frequency: Daily
Type of Scale: Standing Scale
Comment: Daily morning weight. If unable to stand, use balanced bed scale.
Weight As Directed
Frequency: Once
Type of Scale: Standing Scale
Comment: Upon Admission. If unable to stand, use balanced bed scale.
O2 Therapy [RESP] Routine
Nasal Cannula Liter Flow: 2 LPM
Titrate/Wean O2 to maintain O2 sat greater than (%): 93
Pulse Ox/cont/shift [RESP] Routine
Quantity: 1
Special Instructions: Daily pulse oximetry at rest. If greater than 92% at rest also obtain pulse oximetry
while ambulating as tolerated.
DX Deep Vein Thrombosis Video Routine
09/24/24 22:00
Carboxymethylcellulose [Refresh Celluvisc Gel] 1 drops BOTH EYES QID
Flush (0.9% Sodium Chloride) [Flush (Nss)] See Dose Instructions IV PER PROTOCOL
Gabapentin [Neurontin] 300 mg PO TID
09/25/24 00:00
Ertapenem [Invanz] 1,000 mg 0.9% Sodium Chloride [Nss] 50 ml IV Q24H
09/25/24 05:23
Basic Metabolic Panel IN AM
Magnesium IN AM
09/25/24 06:00
Echo 2D MMode Color/Doppler IN AM
Reason for Study: heart failure
09/25/24 08:00
Famotidine [Pepcid] 20 mg PO DAILY
Furosemide [Lasix] 20 mg IV BID AT 0800,1600
Ipratropium/Albuterol Sulfate [Duoneb] 3 ml INH R QID
Lorazepam [Ativan] 0.5 mg PO DAILY
Losartan [Cozaar] 50 mg PO DAILY
Perphenazine [Trilafon] 4 mg PO BID
Trihexyphenidyl [Artane] 5 mg PO BID
09/25/24 18:00
Enoxaparin Sodium [Lovenox] 40 mg SC QPM
09/26/24 08:28
Basic Metabolic Panel IN AM
09/26/24 11:00
DC Protocol for Telemetry ONCE
09/27/24 05:08
Basic Metabolic Panel IN AM
Abnormal Lab Results
09/24/24 09/24/24 09/24/24
18:09 18:24 20:20
MCHC 31.2 L g/dL
(33.0-37.0)
MPV 11.4 H fL
(7.4-10.4)
pCO2 54 H mmHg
(32-35)
pO2 82 L mmHg
(83-108)
HCO3 31.2 H mmol/L
(21-28)
ABG O2 Sat (Measured) 98.9 H %
(94-98)
Carbon Dioxide 32 H mmol/L
(22-30)
BUN 18 H mg/dl
(7-17)
Glucose 111 H mg/dl
(70-99)
Calcium 10.4 H mg/dl
(8.4-10.2)
Ur Occult Blood Reflex 3+ A
(Negative)
Leukocyte Esterase Rfl 2+ A
(Negative)
Urine RBC 7-10 A /HPF
(0-2)
Urine WBC (Reflex) 16-20 A /HPF
(0-5)
Urine Bacteria (Reflex) Many A
(Negative)
Urine Albumin (Reflex) 1+ A
(Neg - Trace)
09/24/24 18:09
09/24/24 18:09
Vital Signs
Initial and Last Documented VS:
Initial Vital Signs
Temp Pulse Resp BP Pulse Ox
37.0 C 58 24 124/59 88
09/24/24 18:02 09/24/24 18:02 09/24/24 18:02 09/24/24 18:02 09/24/24 18:02
Last Documented Vital Signs
Temp Pulse Resp BP Pulse Ox
36.8 C 67 17 114/59 94
09/28/24 11:23 09/28/24 11:23 09/28/24 11:23 09/28/24 11:23 09/28/24 11:23
*Critical Care Note
Total Time (30-74mins, 75-104mins- exclusive of procedures): Not Applicable
ED Attending Note
-
Portions of this chart may have been created with voice recognition software.� Occasional wrong word or��sound alike� substitutions may have occurred due to the inherent limitations of voice recognition software.
Discharge Plan
Departure
Patient Disposition: Admit
Date of Disposition: 09/24/24
Time of Disposition: 20:38
Presentation/result/management discussed w/ accepting MD/DO: Hospitalist
Discharge Problem:
COPD (chronic obstructive pulmonary disease)
Interventions
Interventions:
*Risk Screen - Suicide Last Done: 09/24/24 18:02
*General Assessment Last Done: 09/24/24 18:02
*Neglect/Abuse Screening Last Done: 09/24/24 18:02
ED- Fall Risk Assessment Last Done: 09/24/24 18:02
*ED COVID-19 Vaccine History Last Done: 09/24/24 18:02
*Nursing Disposition Last Done: 09/24/24 21:36
ED- Pulmonary Assessment Last Done: 09/24/24 19:34
ED- Neurological Assessment Last Done: 09/24/24 18:12
ED- Cardiac Assessment Last Done: 09/24/24 18:12
ED Swallowing Screen Last Done: 09/24/24 21:21
Discharge Date and Time
Discharge Date/Time: 09/24/24 21:46
[2024-09-24] MEDS: NSS 500 IV (18:29)
[2024-09-24 18:30] LABS: Blood Urea Nitrogen 18 mg/dl (7-17); Calcium 10.4 mg/dl (8.4-10.2); Carbon Dioxide 32 mmol/L (22-30); Chloride 103 mmol/L (98-107); Glucose 111 mg/dl (70-99); Sodium 140 mmol/L (135-145); eGFR > 60.00
[2024-09-24 18:38] LABS: Urine Albumin 1+ (Neg - Trace); Urine Bilirubin Negative (Negative); Urine Character Very Cloudy (Clear); Urine Color Yellow; Urine Glucose Negative (Negative); Urine Ketone Negative (Negative); Urine Leukocyte 2+ (Negative); Urine Nitrite Negative (Negative); Urine Occult Blood 3+ (Negative); Urine Urobilinogen Negative (Neg - 1+)
[2024-09-24 19:00] VITALS: BP 122/100
[2024-09-24 19:05] LABS: COVID-19 Antigen Negative (Negative); Urine Bacteria Many (Negative); Urine Squamous Cell 0-2 /LPF (Few); Urine White Cell 16-20 /HPF (0-5)
[2024-09-24] MEDS: ROCEPHIN 1000 MG IV (19:59)
[2024-09-24 20:05] VITALS: BP 131/83
[2024-09-24 20:24] LABS: NT-proBNP 202 pg/ml
[2024-09-24 20:25] LABS: B.E. 4.6 mmol/L; HCO3 31.2 mmol/L (21-28); O2 Saturation % 98.9 % (94-98); PCO2 54 mmHg (32-35); PO2 82 mmHg (83-108); pH 7.37 (7.35-7.45)
--- NOTE | 2024-09-24 20:35 | HPS.HSE ---
Family Physician
-
Family Physician: Sadi Clark
Chief Complaint
-
Transferred from half-way for altered mental status
History of Present Illness
This is a 84-year-old female with a complex past medical history including emphysema, nonspecific sinus bradycardia, essential tremor, schizophrenia, dementia, hypertension and hyperlipidemia who presents to the emergency department from [facility]
point for concern for change in mental status.
Patient is a poor historian. She is reported to be usually alert and oriented x 3. She is known to have cognitive decline that is age-related. Currently she is oriented to self. She reports the year is 2019. She had prior presentations in the
past with history of recurrent urinary tract infection. Patient was discharged on 2 L nasal cannula as needed but she has not needed it since March. She was found to be hypoxic to 88% on room air. No history of cough wheezing or shortness of
breath by the half-way. She is reported to have diastolic CHF.
Patient has run-on sentences which is probably typical for given history of schizophrenia. She seems to be otherwise well-appearing and in no acute distress.
In the emergency department she was afebrile, blood pressure was 120/100 with a pulse of 86, she was satting 96% on 2 L. CBC was unremarkable. Chemistries with also unremarkable except for a slightly elevated bicarb of 32. Chest x-ray shows mild
interstitial edema. BNP was negative. ECG with bradycardia to 55 otherwise unremarkable. UA is markedly positive. VBG with compensated respiratory acidosis, pH 7.37, 54, 31.
Medical History
Past Medical History
Past Medical History: Reports COPD, Dementia, GERD, HTN, Hypercholesterolemia and Psychiatric (Schizophrenia, depression, bipolar)
Additional Past Medical History:
chronic chest pain
Past Surgical History: Reports None
Social History
Unable to obtain full social history at this time due to: Dementia
Family History
Family History: Not pertinent
Allergies / Home Medications
Allergies reflects when Allergies were last updated in [facility].
Home Medications with original date entered in [employer]
Allergy/Medication List:
Allergies
Allergy/AdvReac Type Severity Reaction Status Date / Time
No Known Allergies Allergy Verified 09/24/24 18:08
Home Medications
acetaminophen 325 mg tablet (Tylenol) 650 mg PO Q4HPRN PRN mild pain/temp>100F 02/29/24
carboxymethylcellulose sodium 0.5 % eye drops (Refresh Tears) 1 drp BOTH EYES QID Eye Condition 02/29/24
cholecalciferol (vitamin D3) 25 mcg (1,000 unit) tablet (Vitamin D3) 25 mcg PO DAILY Supplement 02/29/24
gabapentin 300 mg capsule 300 mg PO TID Pain 02/29/24
guaifenesin 100 mg/5 mL oral liquid 200 mg PO Q4HPRN PRN cough 02/29/24
magnesium hydroxide 400 mg/5 mL oral suspension (Milk of Magnesia) 30 ml PO [id number] PRN if no BM in 3 days 02/29/24
perphenazine 4 mg tablet 4 mg PO BID Mental Health/Anxiety 02/29/24
sodium phosphates 19 gram-7 gram/118 mL enema (Fleet Enema) 118 ml WV DAILYPRN PRN if dulcolax ineffective in 24 hrs 02/29/24
trihexyphenidyl 0.4 mg/mL oral elixir 5 mg PO BID Mental Health/Anxiety 02/29/24
famotidine 20 mg tablet 20 mg PO DAILY #30 tabs 03/02/24
calcium carbonate 500 mg PO DAILY Supplement 03/13/24
ipratropium 0.5 mg-albuterol 3 mg (2.5 mg base)/3 mL nebulization soln 3 ml inhalation R QID Lung/Breathing Issues 03/13/24
bisacodyl 10 mg rectal suppository 10 mg WV DAILYPRN PRN constipation #0 ea 03/16/24
lorazepam 0.5 mg tablet 0.5 mg PO DAILY Mental Health/Anxiety #3 tabs 03/16/24
lorazepam 0.5 mg tablet (Ativan) 0.25 mg (1/2 x 0.5 mg) PO HS Mental Health/Anxiety #3 tabs 03/16/24
losartan 50 mg tablet 50 mg PO DAILY #0 tabs 03/16/24
methenamine hippurate 1 gram tablet 1 g PO DAILY #0 tabs 03/16/24
polyethylene glycol 3350 17 gram oral powder packet (HealthyLax) 17 g PO DAILYPRN PRN constipation #0 ea 03/16/24
sennosides 8.6 mg-docusate sodium 50 mg tablet (Stool Softener-Laxative) 1 tab PO BIDPRN PRN constipation #0 tabs 03/16/24
Review of Systems
-
Unable to obtain full review of systems at this time due to: Dementia
Physical Exam
Vital Signs
Vital Signs
Temp Pulse Resp BP Pulse Ox
98.6 F 56 19 122/100 95
09/24/24 18:02 09/24/24 19:45 09/24/24 19:45 09/24/24 19:00 09/24/24 19:45
Physical Exam
General: Well Developed, Well Nourished, No Apparent Distress and Comfortable
HEENT: NormoCephalic, Anicteric, Moist mucous membranes and Atraumatic
Respiratory: Clear
Cardiac: S1/S2 and Bradycardia
Breast: Deferred by me
GI: Soft, Non Tender, Non Distended and Normal Bowel Sounds
Rectal: Deferred by Provider
Genito-urinary: Deferred by me
Musculoskeletal: No Clubbing, No Cyanosis and No Edema
Skin: Warm
Neuro: Alert, Oriented (oriented to person) and Nonfocal/grossly intact
Hematologic/Lymphatic: No Lymphadenopathy
Psych: Calm
Laboratory Results
-
09/24/24 18:09
09/24/24 18:09
Laboratory Results
pH 7.37 (7.35-7.45) 09/24/24 20:20
pCO2 54 mmHg (32-35) H 09/24/24 20:20
pO2 82 mmHg (83-108) L 09/24/24 20:20
HCO3 31.2 mmol/L (21-28) H 09/24/24 20:20
Total Bilirubin Cancelled 09/24/24 18:09
AST Cancelled 09/24/24 18:09
ALT Cancelled 09/24/24 18:09
Alkaline Phosphatase Cancelled 09/24/24 18:09
Data Reviewed
-
Diagnostic Radiology: Image Personally Visualized and interpreted
Medical Tests (Nuc Med, Echo, EKG etc): Image Personally Visualized and interpreted
Lab Data: Labs Reviewed by me
Old Records: Reviewed
Impression/Plan
-
IMPRESSION:
84 y.o female with altered mental status. + U/A here and history of recurrent UTIs in the past. Also found to be hypoxic to 88% on room air which is relatively new. Had been discharged on prn O2 in the past. No wheezing or coughing. Mild
interstitial edema on Xray. Normal BNP but morbidly obese. History of diastolic CHF in the past.
PLAN:
1. AMS - Suspect secondary to recurrent cystitis
- admit to telemetry
- urine cultures sent and pending. H/O resistant proteus in the past
- IV ceftriaxone given in ED, will continue with ertapenem pending cultures for now
2. Hypoxia - Multifactorial with obesity, emphysema and possible CHF. No increased wob and no signs of total body fluid overload.
- telemetry for now
- lasix 20mg iv x 1
- duonebs RTC
- prednisone 40mg daily for now
- echo
3. GERD
- PPI po daily
DVT PPX - lovenox sq
Code status - full code
[2024-09-24] MEDS: SOLU-MEDROL PF 60 MG IV (20:47)
[2024-09-24] MEDS: DUONEB 3 ML INH (20:47)
[2024-09-24 21:00] VITALS: BP 130/69
[2024-09-24] MEDS: LASIX 20 MG IV (21:13)
[2024-09-24 22:09] VITALS: BMI 44.7
[2024-09-24 22:24] VITALS: BP 133/67
[2024-09-24] MEDS: NEURONTIN 300 MG PO (22:31)
[2024-09-24] MEDS: REFRESH CELLUVISC GEL 1 DROPS BOTH EYES (22:31)
[2024-09-24] MEDS: INVANZ 60 MG IV (23:00)
--- NOTE | 2024-09-24 23:33 | PTCARENOTE ---
pt admitted to rm 338-1 and was pulled over from stretcher to bed. Pt aaox3 but talking in run on sentences. VSS, no c/o pain, and skin intact. pt oriented to room, call hoffman within reach, and plan of care ongoing.
[2024-09-25 03:50] VITALS: BP 143/68
[2024-09-25 06:00] VITALS: BMI 44.3
[2024-09-25 06:48] LABS: Blood Urea Nitrogen 17 mg/dl (7-17); Calcium 10.5 mg/dl (8.4-10.2); Carbon Dioxide 32 mmol/L (22-30); Chloride 103 mmol/L (98-107); Estimated Creatinine Clearance 81 ml/min; Glucose 186 mg/dl (70-99); Magnesium 1.9 mg/dl (1.6-2.3); Potassium 4.4 mmol/L (3.5-5.1); Sodium 141 mmol/L (135-145); eGFR > 60.00
[2024-09-25] MEDS: DUONEB 3 ML INH ×4 (07:21→20:04)
[2024-09-25 08:04] VITALS: BP 127/67
[2024-09-25] MEDS: ARTANE 5 MG PO ×2 (09:34→21:56)
[2024-09-25] MEDS: REFRESH CELLUVISC GEL 1 DROPS BOTH EYES ×4 (09:34→21:57)
[2024-09-25] MEDS: COZAAR 50 MG PO (09:34)
[2024-09-25] MEDS: NEURONTIN 300 MG PO ×3 (09:34→21:57)
[2024-09-25] MEDS: TRILAFON 4 MG PO ×2 (09:34→21:57)
[2024-09-25] MEDS: PEPCID 20 MG PO (09:34)
[2024-09-25] MEDS: ATIVAN 0.5 MG PO (09:34)
--- NOTE | 2024-09-25 10:47 | CM ---
CM following re: discharge planning.
Reviewed pt's chart, met with pt.
Pt is an 84 year old female, admitted with primary dx of AMS.
Pt is not a great historian due to Dementia, likes to have conversation with a subject knows to her and very difficult to follow. 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
transfer out of bed to a chair. 15 days Medicaid bed hold.
D/C plan: return back to [facility] for a correction care.
CM will follow to assist pt with discharge to [facility] for a LTC
[2024-09-25 13:46] VITALS: BMI 44.3
--- NOTE | 2024-09-25 14:45 | PTCARENOTE ---
pt weaned to 2LNC with sao2 at 95%. scattered rhonchi b/l anteriorly, will continue to monitor.
--- NOTE | 2024-09-25 15:07 | W.PN.HOSP.TC ---
Today's Communication/Plan
-
Continue antibiotics, follow-up cultures
Wean O2
Follow-up echo
Assessment / Plan
Assessment / Plan
Physical Exam
General: Well Developed, Well Nourished, No Apparent Distress and Comfortable
HEENT: NormoCephalic, Anicteric, Moist mucous membranes and Atraumatic
Respiratory: Clear
Cardiac: S1/S2 and Bradycardia
Breast: Deferred by me
GI: Soft, Non Tender, Non Distended and Normal Bowel Sounds
Rectal: Deferred by Provider
Genito-urinary: Deferred by me
Musculoskeletal: No Clubbing, No Cyanosis and No Edema
Skin: Warm
Neuro: Alert, Oriented (oriented to person) and Nonfocal/grossly intact
Hematologic/Lymphatic: No Lymphadenopathy
Psych: Calm
1. Acute metabolic encephalopathy- Suspect secondary to recurrent cystitis
- admit to telemetry
- urine cultures sent and pending. H/O resistant proteus in the past
- IV ceftriaxone given in ED, will continue with ertapenem pending cultures for now
2. Hypoxia - Multifactorial with obesity, emphysema and possible CHF. No increased wob and no signs of total body fluid overload.
- telemetry for now
- lasix 20mg iv x 1
- duonebs RTC
�No bronchospasm, can hold on steroids
- echo follow-up
3. GERD
- PPI po daily
DVT PPX - lovenox sq
Code status - full code
Med rec pending
Anticipated Discharge: 24 - 48 hours
Subjective/Interval History
-
Date of Service: September 25, 2024
No acute events
Objective Data
-
Labs:
Laboratory Results
09/25/24
05:23
Sodium 141
Potassium 4.4
Chloride 103
Carbon Dioxide 32 H
BUN 17
Creatinine 0.6
Glucose 186 H
Calcium 10.5 H
Vital Signs:
Vital Signs
Temp Pulse Resp BP Pulse Ox
98.1 F 64 20 127/67 96
09/25/24 08:04 09/25/24 11:20 09/25/24 11:20 09/25/24 08:04 09/25/24 08:55
I&O
09/24/24 09/25/24 09/26/24
06:59 06:59 06:59
Output Total 900 / 900
Balance -900 / -900
Review of Systems
-
History Source: Patient
All other systems: Not reviewed unless documented
Data Reviewed
-
Diagnostic Radiology: Report Reviewed by me
Labs: Labs Reviewed by me
[2024-09-25 15:25] VITALS: BP 131/58
--- NOTE | 2024-09-25 16:31 | PTCARENOTE ---
patient oriented to self only, confused to time and place and forgetful, frequently talks in disorganized speech and phrases. attempts made to reorient patient frequently without success, tolerating diet, no s/s of aspiration, turns with mod
assist x2, vss, will continue to monitor.
[2024-09-25] MEDS: LOVENOX 40 MG SC (17:10)
[2024-09-25 19:00] VITALS: BP 128/61
[2024-09-25] MEDS: ATIVAN 0.25 MG PO (21:51)
[2024-09-25 23:00] VITALS: BP 111/49
[2024-09-26] MEDS: INVANZ 60 MG IV (00:20)
[2024-09-26 03:00] VITALS: BP 120/56
[2024-09-26 06:00] VITALS: BMI 45.7
[2024-09-26] MEDS: DUONEB 3 ML INH ×4 (07:29→20:13)
[2024-09-26 08:06] VITALS: BP 133/66
[2024-09-26] MEDS: PEPCID 20 MG PO (08:50)
[2024-09-26] MEDS: ATIVAN 0.5 MG PO (08:50)
[2024-09-26] MEDS: COZAAR 50 MG PO (08:50)
[2024-09-26] MEDS: NEURONTIN 300 MG PO ×3 (08:50→21:30)
[2024-09-26] MEDS: TRILAFON 4 MG PO ×2 (08:51→21:31)
[2024-09-26] MEDS: REFRESH CELLUVISC GEL 1 DROPS BOTH EYES ×4 (08:51→21:30)
[2024-09-26] MEDS: ARTANE 5 MG PO ×2 (08:51→21:33)
[2024-09-26 09:00] LABS: Blood Urea Nitrogen 25 mg/dl (7-17); Calcium 10.4 mg/dl (8.4-10.2); Carbon Dioxide 32 mmol/L (22-30); Chloride 103 mmol/L (98-107); Estimated Creatinine Clearance 83 ml/min; Glucose 101 mg/dl (70-99); Potassium 4.5 mmol/L (3.5-5.1); Sodium 140 mmol/L (135-145); eGFR > 60.00
[2024-09-26 10:06] LABS: Hematocrit 40.7 % (37.0-47.0); Hemoglobin 12.5 g/dL (12.0-16.0); Mean Corp Hgb Conc. 30.7 g/dL (33.0-37.0); Mean Corpuscular Hgb 29.1 pg (27.0-31.0); Mean Corpuscular Volume 94.7 fL (81.0-99.0); Mean Platelet Volume 11.7 fL (7.4-10.4); Platelet Count 142 10^3/uL (130-400); Red Cell Dist. Width 14.2 % (11.5-14.5); White Blood Cell Count 5.8 10^3/uL (4.8-10.8)
[2024-09-26 11:36] VITALS: BP 127/57
--- NOTE | 2024-09-26 11:42 | W.PN.HOSP.TC ---
Today's Communication/Plan
-
iv lasix today, wean o2
switch to ceftriaxone
ST/PT/OT
Assessment / Plan
Assessment / Plan
Physical Exam
General: Well Developed, Well Nourished, No Apparent Distress and Comfortable
HEENT: NormoCephalic, Anicteric, Moist mucous membranes and Atraumatic
Respiratory: Clear
Cardiac: S1/S2 and Bradycardia
Breast: Deferred by me
GI: Soft, Non Tender, Non Distended and Normal Bowel Sounds
Rectal: Deferred by Provider
Genito-urinary: Deferred by me
Musculoskeletal: No Clubbing, No Cyanosis and No Edema
Skin: Warm
Neuro: Alert, Oriented (oriented to person) and Nonfocal/grossly intact
Hematologic/Lymphatic: No Lymphadenopathy
Psych: Calm
# Acute metabolic encephalopathy- Suspect secondary to recurrent cystitis
-Morganella Morganii
�Switch ertapenem to ceftriaxone� probable 10-day course of antibiotics total
# Hypoxia - Multifactorial with obesity, emphysema and possible CHF.
#Acute HFpEF
-on 4L today
-IV lasix again
-bnp 200
�No bronchospasm, can hold on steroids
- echo follow-up - Mild LVH; ECHO EF 55-60%
-speech eval
# GERD
- PPI po daily
DVT PPX - lovenox sq
Code status - full code
Anticipated Discharge: 24 - 48 hours
Subjective/Interval History
-
Date of Service: September 26, 2024
no acute events
Objective Data
-
Labs:
Laboratory Results
09/26/24 09/26/24
08:28 09:47
WBC Cancelled 5.8
Hgb Cancelled 12.5
Hct Cancelled 40.7
Plt Count Cancelled 142
Sodium 140
Potassium 4.5
Chloride 103
Carbon Dioxide 32 H
BUN 25 H
Creatinine 0.6
Glucose 101 H
Calcium 10.4 H
Vital Signs:
Vital Signs
Temp Pulse Resp BP Pulse Ox
97.9 F 55 17 127/57 92
09/26/24 11:36 09/26/24 11:36 09/26/24 11:36 09/26/24 11:36 09/26/24 11:36
I&O
09/25/24 09/26/24 09/27/24
06:59 06:59 06:59
Intake Total 900 / 900
Output Total 900 / 900 375 / 375
Balance -900 / -900 525 / 525
Review of Systems
-
History Source: Patient
All other systems: Not reviewed unless documented
Data Reviewed
-
Diagnostic Radiology: Report Reviewed by me
Labs: Labs Reviewed by me
[2024-09-26] MEDS: STERILE WATER FOR INJECTION 10 ML IV (12:59)
[2024-09-26] MEDS: ROCEPHIN 1000 MG IV (12:59)
[2024-09-26] MEDS: LASIX 20 MG IV (13:19)
--- NOTE | 2024-09-26 15:40 | PTOTSP ---
Speech Therapy
Presentation: Patient is dx with dementia. Patient's speech consisted of dysarthric speech and jargon. Patient's confusion was also a barrier to communication. Patient followed some of the simple directions but had some trouble with following
commands.
Swallowing Function: DOOR MACHINE OPERATOR was observed with several cup sips of thin liquids and bites of regular consistency solids in which patient appeared to tolerate as she did not exhibit any overt clinical s/sx of aspiration or difficulty with mastication;
despite edentulous dentition.
Recommendations:
1) Regular consistency solids and thin liquids
2) Aspiration and reflux precautions
3) Medications as tolerated
4) Assistance and supervision with PO
5) Consideration of speech and language evaluation
Plan: DOOR MACHINE OPERATOR will continue to follow; pending hospitalization.
[2024-09-26 15:41] VITALS: BP 107/49
[2024-09-26] MEDS: LOVENOX 40 MG SC (17:15)
[2024-09-26 19:00] VITALS: BP 122/56
[2024-09-26] MEDS: ATIVAN 0.25 MG PO (21:30)
[2024-09-26 23:00] VITALS: BP 104/45
[2024-09-27] VITALS (7 sets, daily range): BP systolic 90–130; BP diastolic 48–67; BMI 45.0
[2024-09-27 07:25] LABS: Blood Urea Nitrogen 26 mg/dl (7-17); Calcium 10.4 mg/dl (8.4-10.2); Carbon Dioxide 33 mmol/L (22-30); Chloride 101 mmol/L (98-107); Estimated Creatinine Clearance 70 ml/min; Glucose 87 mg/dl (70-99); Potassium 4.7 mmol/L (3.5-5.1); Sodium 139 mmol/L (135-145); eGFR > 60.00
[2024-09-27] MEDS: DUONEB 3 ML INH ×4 (07:38→21:09)
[2024-09-27] MEDS: TRILAFON 4 MG PO ×2 (07:44→19:49)
[2024-09-27] MEDS: NEURONTIN 300 MG PO ×3 (07:44→21:26)
[2024-09-27] MEDS: ARTANE 5 MG PO ×2 (07:44→19:49)
[2024-09-27] MEDS: REFRESH CELLUVISC GEL 1 DROPS BOTH EYES ×4 (07:45→21:26)
[2024-09-27] MEDS: ATIVAN 0.5 MG PO (07:45)
[2024-09-27] MEDS: PEPCID 20 MG PO (07:45)
[2024-09-27] MEDS: COZAAR 50 MG PO (07:46)
[2024-09-27] MEDS: STERILE WATER FOR INJECTION 10 ML IV (11:47)
[2024-09-27] MEDS: ROCEPHIN 1000 MG IV (11:47)
--- NOTE | 2024-09-27 11:50 | W.PN.HOSP.TC ---
Addendum entered and electronically signed by Tony Marcelino MD 09/27/24 14:08:
[id number]
Original Note:
Today's Communication/Plan
-
cefdinir upon dc to complete 10 day course of abx
monitor o2 levels outpt - outpt f/u
f/u pcp outpt
Assessment / Plan
Assessment / Plan
Physical Exam
General: Well Developed, Well Nourished, No Apparent Distress and Comfortable
HEENT: NormoCephalic, Anicteric, Moist mucous membranes and Atraumatic
Respiratory: Clear
Cardiac: S1/S2 and Bradycardia
Breast: Deferred by me
GI: Soft, Non Tender, Non Distended and Normal Bowel Sounds
Rectal: Deferred by Provider
Genito-urinary: Deferred by me
Musculoskeletal: No Clubbing, No Cyanosis and No Edema
Skin: Warm
Neuro: Alert, Oriented (oriented to person) and Nonfocal/grossly intact
Hematologic/Lymphatic: No Lymphadenopathy
Psych: Calm
# Acute metabolic encephalopathy- Suspect secondary to recurrent cystitis
-improving
#Cystitis
-Morganella Morganii
�Switch ertapenem to ceftriaxone� probable 10-day course of antibiotics total - switch to cefdinir on dc
-f/u pcp outpt
# Hypoxia - Multifactorial with obesity, atelectasis, emphysema and possible CHF. Resolved
#Acute HFpEF
-weaned off to RA
-CT imaging with atelectasis
-IV lasix x2
-bnp 200
�No bronchospasm, can hold on steroids
- echo follow-up - Mild LVH; ECHO EF 55-60%
-speech eval - completed
-monitor outpt with further f/u
# GERD
- PPI po daily
DVT PPX - lovenox sq
Code status - full code
More than 30 minutes spent in discharge including
Final examination of the patient
Summarizing hospital stay
Instructions for continuing care to all relevant caregivers
Preparation of discharge records, prescriptions, and referral forms
Total time spent (36 in minutes):
Anticipated Discharge: Today
Subjective/Interval History
-
Date of Service: September 27, 2024
No acute events overnight, weaned off of oxygen, CT chest with no obvious acute abnormalities, atelectasis
Objective Data
-
Labs:
Laboratory Results
09/27/24
05:08
Sodium 139
Potassium 4.7
Chloride 101
Carbon Dioxide 33 H
BUN 26 H
Creatinine 0.7
Glucose 87
Calcium 10.4 H
Vital Signs:
Vital Signs
Temp Pulse Resp BP Pulse Ox
98.3 F 62 18 90/50 91
09/27/24 11:00 09/27/24 11:00 09/27/24 11:27 09/27/24 11:00 09/27/24 11:27
I&O
09/26/24 09/27/24 09/28/24
06:59 06:59 06:59
Intake Total 900 / 900 600 / 600
Output Total 375 / 375 990 / 990
Balance 525 / 525 -390 / -390
Review of Systems
-
History Source: Patient
All other systems: Not reviewed unless documented
Data Reviewed
-
Diagnostic Radiology: Report Reviewed by me
Labs: Labs Reviewed by me
--- NOTE | 2024-09-27 11:54 | W.DS.TRANS ---
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
-
Discharge Instructions:
Discharge Diagnosis/Procedures # Acute metabolic encephalopathy- Suspect
secondary to recurrent cystitis
Activity As tolerated
Blood Work cbc and cmp in 3-5 days with pcp
Instructions:
Stand-Alone Forms:
Changes to Home Medications: Yes
Discharge Medications:
DC Medications w/original date entered in [facility]
acetaminophen 325 mg tablet (Tylenol) 650 mg PO Q4HPRN PRN mild pain/temp>100F 02/29/24
carboxymethylcellulose sodium 0.5 % eye drops (Refresh Tears) 1 drp BOTH EYES QID dry eyes 02/29/24
cholecalciferol (vitamin D3) 25 mcg (1,000 unit) tablet (Vitamin D3) 25 mcg PO DAILY Supplement 02/29/24
gabapentin 300 mg capsule 300 mg PO TID Pain 02/29/24
magnesium hydroxide 400 mg/5 mL oral suspension (Milk of Magnesia) 30 ml PO [id number] PRN if no BM in 3 days 02/29/24
perphenazine 4 mg tablet 4 mg PO BID schizophrenia 02/29/24
sodium phosphates 19 gram-7 gram/118 mL enema (Fleet Enema) 118 ml WI DAILYPRN PRN if dulcolax ineffective in 24 hrs 02/29/24
famotidine 20 mg tablet 20 mg PO DAILY #30 tabs 03/02/24
calcium carbonate 500 mg PO DAILY Supplement 03/13/24
ipratropium 0.5 mg-albuterol 3 mg (2.5 mg base)/3 mL nebulization soln 3 ml inhalation Q8HPRN PRN SOB/wheezing 03/13/24
bisacodyl 10 mg rectal suppository 10 mg WI DAILYPRN PRN constipation #0 ea 03/16/24
lorazepam 0.5 mg tablet 0.5 mg PO DAILY Mental Health/Anxiety #3 tabs 03/16/24
lorazepam 0.5 mg tablet (Ativan) 0.25 mg (1/2 x 0.5 mg) PO HS Mental Health/Anxiety #3 tabs 03/16/24
losartan 50 mg tablet 50 mg PO DAILY #0 tabs 03/16/24
methenamine hippurate 1 gram tablet 1 g PO DAILY #0 tabs 03/16/24
trihexyphenidyl 5 mg tablet 5 mg PO BID schizophrenia 09/25/24
cefdinir 300 mg capsule 300 mg PO Q12H 9 days #18 caps 09/27/24
Home Medication Changes
cefdinir 300 mg capsule 300 mg PO Q12H 9 days #18 caps 09/27/24
Pending Results: No
--- NOTE | 2024-09-27 13:25 | CHAP ---
Visited Carolyn at 11:30am. She poured out a lot of unintelligible words. When asked if she'd like a prayer, she immediately settled herself, becoming quiet. Emotional and spiritual support provided.
[2024-09-27] MEDS: LOVENOX 40 MG SC (16:59)
--- NOTE | 2024-09-27 17:49 | W.PN.UPDATE ---
Update Note
Progress Note Update
Notified by nursing staff that patient was bradycardic, HR 32-34 BP 127/40.
Patient has a history of dementia, and is more lethargic with her head bobbing.
EKG obtained shows a heart rate of 66 with bigeminy and PVCs.
Patient was evaluated by Dr. 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
No intervention needed, continue monitoring for now.
[2024-09-27 17:52] LABS: Glucose - Point of Care 146 mg/dl (70-99)
--- NOTE | 2024-09-27 18:24 | RR ---
A Rapid Response was called on this patient, please see Rapid Response form.
Patient's heart monitor started alarming for HR 32-34 with ventricular bigeminy. Patient in bed, arousable but lethargic. Vitals taken with BP 127/40, 92% on room air, radial pulse 32 bpm, temp 98.6. Cross-coverage hospitalist notified. EKG done and
in chart reading accelerated junctional rhythm with frequent PVCs and bigeminy. Blood glucose 146. Troponin drawn. See rapid response form.
[2024-09-27 18:44] LABS: Troponin I < 0.012 ng/ml
[2024-09-27] MEDS: ATIVAN 0.25 MG PO (21:25)
[2024-09-28 03:00] VITALS: BP 145/68
[2024-09-28 05:37] VITALS: BMI 45.2
[2024-09-28 07:39] VITALS: BP 142/52
[2024-09-28] MEDS: DUONEB 3 ML INH ×2 (07:45→11:02)
[2024-09-28] MEDS: ARTANE 5 MG PO (07:51)
[2024-09-28] MEDS: COZAAR 50 MG PO (07:51)
[2024-09-28] MEDS: NEURONTIN 300 MG PO (07:51)
[2024-09-28] MEDS: REFRESH CELLUVISC GEL 1 DROPS BOTH EYES ×2 (07:51→12:09)
[2024-09-28] MEDS: ATIVAN 0.5 MG PO (07:51)
[2024-09-28] MEDS: TRILAFON 4 MG PO (07:52)
[2024-09-28] MEDS: PEPCID 20 MG PO (07:52)
[2024-09-28 11:23] VITALS: BP 114/59
--- NOTE | 2024-09-28 11:47 | W.PN.HOSP.TC ---
Addendum entered and electronically signed by John Felder DO 09/28/24 14:13:
CDI: UTI with acute cystitis
Original Note:
Today's Communication/Plan
-
Cefdinir through 10/06/2024
Discharge to SNF
Assessment / Plan
Assessment / Plan
#Acute metabolic encephalopathy
#H/O Dementia
-Suspect secondary to recurrent cystitis
-improving on antibiotic regimen
-Appears to be at baseline
-Underlying dementia at baseline
#Cystitis
-Morganella Morganii
-Switch ertapenem to ceftriaxone� probable 10-day course of antibiotics total - switch to cefdinir on dc
-Last day of antibiotics on 10/06/2024
-f/u pcp outpt
#Hypoxia
#Acute HFpEF
-Required low levels of oxygen that have since been weaned off; s/p IV Lasix x 2
-Echocardiogram with mild concentric LVH, preserved LVEF of 55 to 60%
-No evidence of bronchospasm or COPD; CT imaging with atelectasis
-Not currently on oral Lasix; appears euvolemic
-Continue to monitor volume
#GERD
-PPI po daily
#Morbid Obesity
-Affects all aspects of care
-Should have OOB activity as tolerated
DVT PPX - lovenox sq
Diet: Cholesterol-lowering, sodium restricted
Code status - full code
Anticipated Discharge: Within 24 hours
Subjective/Interval History
-
Date of Service: September 28, 2024
Seen and examined at the bedside. No acute events reported overnight. AFVSS as of this morning.
Was scheduled for discharge yesterday though it was held due to bradycardia, found to be pseudo bradycardia due to bigeminy.
She complains of burning/pain in her eyes, appears as if she was just rubbing them.
Denies other acute complaints
Objective Data
-
Vital Signs:
Vital Signs
Temp Pulse Resp BP Pulse Ox
98.2 F 67 17 114/59 94
09/28/24 11:23 09/28/24 11:23 09/28/24 11:23 09/28/24 11:23 09/28/24 11:23
I&O
09/27/24 09/28/24 09/29/24
06:59 06:59 06:59
Intake Total 600 / 600 960 / 960
Output Total 990 / 990 1400 / 1400
Balance -390 / -390 -440 / -440
Review of Systems
-
History Source: Patient
All other systems: Reviewed and negative
Physical Exam
-
General: Well Developed, Well Nourished, No Apparent Distress and Comfortable
HEENT: Normocephalic, Atraumatic, Moist Mucous Membranes, Anicteric, PERRLA and Other (No scleral injection or purulence noted)
Respiratory: Clear to Auscultation and Non Labored Respirations
Cardiac: Regular Rhythm and S1/S2; Negative Murmur, Rub or Gallop
GI: Soft, Nontender, Nondistended and Normal Bowel Sounds
Musculoskeletal: No Clubbing, No Cyanosis and No Edema
Skin: Warm, Dry and Normal Turgor; Negative Rash
Neuro: Awake, Alert, Oriented and Nonfocal/Grossly Intact
Psych: Calm
Data Reviewed
-
Labs: Labs Reviewed by me and Discussed with Patient
[2024-09-28] MEDS: STERILE WATER FOR INJECTION 10 ML IV (12:07)
[2024-09-28] MEDS: ROCEPHIN 1000 MG IV (12:07)
--- NOTE | 2024-09-28 13:49 | PN.CDI ---
CDI
- -
CDI:
Physician Documentation Request
Admit Date: 09/24/24 21:22
Dear Doctor Bradford,
Please review the following and provide your response in the progress notes.
Clinical Indicators:
Pt admitted with AMS/Metabolic Encephalopathy /Recurrent cystitis / Acute HFpEF
Progress note 09/26-09/28, ' Acute metabolic encephalopathy- Suspect secondary to recurrent cystitis Morganella Morganii Switch ertapenem to ceftriaxone� probable 10-day course of antibiotics total...'
Progress note 09/28, ' Cefdinir through 10/06/2024...'
Please provide a diagnosis for the above findings/treatment :
UTI with Acute Cystitis
Cystitis-only
Indicate if acute or chronic
Other, please specify
Use of terms such as suspected, likely, concern for, or probable (associated with a specific diagnosis that is being evaluated, monitored, or treated as if it exists) are acceptable and can be coded in the inpatient setting, when documented at the
time of discharge.
Thank you,
Sravanthi Rivera RN
CDI Specialist
[facility] [employer]
Please use your independent medical judgment in providing your response.
--- NOTE | 2024-09-28 14:39 | W.DCSUMMARY ---
Discharge Summary
Discharge Data
Date of Admission: 09/24/24
Date of Discharge: 09/28/24
-
Pending Results: No
Hospital Course
Patient presented with acute metabolic encephalopathy secondary to cystitis. Urinalysis with Morganella morganii. Was treated with broad-spectrum IV antibiotics initially which was eventually transition to cefdinir for which she was prescribed
10-day course of antibiotics. Hospitalization was complicated by hypoxemia of multifactorial etiology due to obesity and atelectasis. Received light IV diuresis. Echocardiogram with preserved LVEF and signs of mild LVH. Rapid response was called
on 09/27 prior to discharge for bradycardia however found to be pseudo bradycardia in the context of bigeminy. Heart rate in the 60s being read as in the 30s due to the bigeminy. Was monitored for an additional day and found to be stable.
Discharged back to long-term living facility on 09/28/2024 with directive to complete 8 more days of cefdinir.
Discharge Plan
-
Patient Disposition: Halfway/SNF
Discharge Diagnosis/Procedures: Acute metabolic encephalopathy- Suspect secondary to recurrent cystitis
Condition: Fair
Activity: As tolerated
Driving Restrictions: No driving
Bathing Restrictions: None
Blood Work: CBC and CMP in 5 days after discharge from hospital
Other Services: PT and OT
Activity Restrictions/Additional Instructions:
When ambulatory she will need to have a trial of void. Remove Thao catheter at midnight, following morning allow patient opportunity to pass urine. If she has recurrence of urine retention then Thao catheter will need to be replaced and she will
need to follow-up with urology in the office. Referral for urologist (Dr. Alonso Hays) is provided below. Please contact their office to schedule appointment.
Will need to follow-up with family doctor within 1 to 2 weeks of discharge from rehab
Referrals:
Sadi Clark I., DO [Family Provider] - in less than 1 week
Alonso Hays MD [Active] - in one to two weeks
Additional Discharge Medication Instructions: Continue cefdinir 300 mg every 12 hours through 10/06/2024
Stop methenamine hippurate until 10/07/2024, following antibiotic course
Prescriptions:
New
cefdinir 300 mg capsule
300 mg PO Q12H 9 Days Qty: 18 0RF
Continued
acetaminophen [Tylenol] 325 mg Tablet
650 mg PO Q4HPRN MDD 3000 mg PRN (Reason: mild pain/temp>100F)
magnesium hydroxide [Milk of Magnesia] 400 mg/5 mL Suspension
30 ml PO [id number] PRN (Reason: if no BM in 3 days)
carboxymethylcellulose sodium [Refresh Tears] 0.5 % Drops
1 drp BOTH EYES QID
perphenazine 4 mg Tablet
4 mg PO BID
Fleet Enema 19-7 gram/118 mL Enema
118 ml VT DAILYPRN PRN (Reason: if dulcolax ineffective in 24 hrs)
gabapentin 300 mg Capsule
300 mg PO TID
cholecalciferol (vitamin D3) [Vitamin D3] 25 mcg (1,000 unit) Tablet
25 mcg PO DAILY
famotidine 20 mg Tablet
20 mg PO DAILY Qty: 30 0RF
Patient Comments:
ipratropium-albuterol 0.5 mg-3 mg(2.5 mg base)/3 mL Solution For Nebulization
3 ml INHALATION Q8HPRN PRN (Reason: SOB/wheezing)
Patient Comments:
03/13/2024, QID x 2 weeks; start date: 03/09/2024; end date: 03/23/2024.
calcium carbonate 500 mg calcium (1,250 mg) Tablet
500 mg PO DAILY
Patient Comments:
03/13/2024, 1250 mg.
losartan 50 mg Tablet
50 mg PO DAILY Qty: 0 0RF
bisacodyl 10 mg Suppository
10 mg VT DAILYPRN PRN (Reason: constipation) Qty: 0 0RF
lorazepam 0.5 mg Tablet
0.5 mg PO DAILY Qty: 3 0RF
lorazepam [Ativan] 0.5 mg tablet
0.25 mg PO HS Qty: 3 0RF
trihexyphenidyl 5 mg Tablet
5 mg PO BID
Held
methenamine hippurate 1 gram Tablet
1 g PO DAILY Qty: 0 0RF
Hold Instructions: Resume on 10/07/24. until abx course completed
Discharge Orders:
Discharge Patient (As Directed); Ordered 09/28/24
Ordered By: John Felder
Discharge Date and Time
Print Language: CYMRAES
--- NOTE | 2024-09-28 15:33 | CM ---
MD indicated pt ready for discharge.
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
Pt accepted back Referral made in care port.
Attempt to contact pts dgt Rosalba [phone] number did not go thru x3.
Reviewed IMM with Vania at [facility] facility.
Medical nec form completed.
[facility]
report [phone]
.
PLAN To [facility] via ambulance
== END 2024-09-28 14:48 | DRG 291 ==
LOC: 3 WEST ACU 21:22
PROVIDERS: Internal Medicine; ADMITTING PHYSICIAN Internal Medicine; ATTENDING PHYSICIAN Internal Medicine; EMERGENCY PHYSICIAN Emergency Medicine; FAMILY PHYSICIAN Internal Medicine
DX: I11.0 Hypertensive heart disease with heart failure (principal); G93.41 Metabolic encephalopathy; I50.31 Acute diastolic (congestive) heart failure; Z68.42 Body mass index [BMI] 45.0-49.9, adult; J98.11 Atelectasis; N30.00 Acute cystitis without hematuria; K21.9 Gastro-esophageal reflux disease without esophagitis; E66.01 Morbid (severe) obesity due to excess calories; Z11.52 Encounter for screening for COVID-19
CPT/HCPCS: 71045; 71275; 80048; 81003; 81015; 82805; 82962; 83735; 83880; 84484; 85025; 85027; 87070; 87077; 87086; 87186; 87502; 87811; 92610; 93005; 93306; 94640; 96374; 96375; 99285; J1335; Q9967

== ENCOUNTER 2025-01-26 17:42 | Inpatient (IN) | payer MEDICARE, OTHER, SELFPAY ==
[2025-01-26 15:11] VITALS: BMI 39.3
[2025-01-26 15:37] LABS: % Basophils 0.5 % (0-2); % Eosinophils 3.9 % (0-6); % Immature Granulocytes 0.3 % (0-0.5); % Lymphocytes 20.9 % (20.5-51.1); % Monocytes 9.9 % (1.7-9.3); % Neutrophils 64.5 % (42.2-75.2); Absolute Eosinophils 0.2 10^3/uL (0-0.7); Absolute Lymphocytes 1.3 10^3/uL (1.2-3.4); Absolute Monocytes 0.6 10^3/uL (0.1-0.6); Absolute Neutrophils 3.9 10^3/uL (1.4-6.5); Hematocrit 41.9 % (37.0-47.0); Hemoglobin 13.3 g/dL (12.0-16.0); Mean Corp Hgb Conc. 31.7 g/dL (33.0-37.0); Mean Corpuscular Hgb 29.3 pg (27.0-31.0); Mean Corpuscular Volume 92.3 fL (81.0-99.0); Mean Platelet Volume 12.3 fL (7.4-10.4); Nucleated Red Blood Cells % 0 %; Platelet Count 210 10^3/uL (130-400); Red Blood Cell Count 4.54 10^6/uL (4.20-5.40); Red Cell Dist. Width 14.6 % (11.5-14.5); White Blood Cell Count 6.1 10^3/uL (4.8-10.8)
[2025-01-26 15:43] LABS: Urine Albumin 3+ (Neg - Trace); Urine Bilirubin Negative (Negative); Urine Character Slightly Cloudy (Clear); Urine Color Yellow; Urine Glucose Negative (Negative); Urine Ketone Negative (Negative); Urine Leukocyte 3+ (Negative); Urine Nitrite Negative (Negative); Urine Occult Blood 4+ (Negative); Urine Urobilinogen Negative (Neg - 1+)
[2025-01-26 16:00] VITALS: BP 136/83
[2025-01-26 16:00] LABS: Blood Urea Nitrogen 12 mg/dl (7-17); Carbon Dioxide 33 mmol/L (22-30); Chloride 110 mmol/L (98-107); Estimated Creatinine Clearance 88 ml/min; Glucose 100 mg/dl (70-99); Sodium 145 mmol/L (135-145); eGFR > 60.00
[2025-01-26 16:02] LABS: Calcium 13.5 mg/dl (8.4-10.2)
--- NOTE | 2025-01-26 16:09 | ED.GENMED ---
History of Present Illness
General
Chief Complaint: Change in Mental Status
Source: records and ambulance crew
Time Seen by Provider: 01/26/25 16:01
History of Present Illness
History of Present Illness:
84-year-old female with past medical history of dementia, schizophrenia, hypertension, hyperlipidemia presenting to the emergency department from [facility] for evaluation of reported change in mental status. Patient is unable to
provide any history, but per reports patient is usually awake and communicative with staff and today was much more sleepy and not as responsive. At time of my exam patient arouses to voice and name however is not answering any questions and unable
to provide any history at all.
Past History
Past History
ED Past Medical History: HTN, Hypercholesterolemia and Psychiatric (Schizophrenia)
ED Past Surgical History: None
Social History
Tobacco: Non-smoker
Alcohol: None
Drug: None
Personal: Single
Living: [facility]
Family History
Family History: Other
Review of Systems
Review of Systems
All Other Systems: ROS reviewed and negative except as documented in HPI and ROS
Phy Exam
Physical Exam
Physical Exam:
GENERAL: Sleeping, appears older than stated age, no acute distress
HEAD: Normocephalic atraumatic
EYE: clear conjunctiva, pupils 4mm
NECK: Supple
ENT: o/p clr, mmm.
CARDIAC: Regular rate and rhythm .
LUNGS: Clear breath sounds bilaterally, no acute respiratory distress, no wheezes/rales/rhonchi
ABDOMEN: Soft, no grimacing with palpation, no r/g, no cvat
NEUROLOGICAL: Sleeping, arouses to name but not answering questions, follows some commands but otherwise seems confused
SKIN: Warm and dry, skin intact.
MUSCULOSKELETAL: mild bilateral non-pitting edema, ortho boot on left foot
PSYCH: Unable to assess
Scores
Heart Failure Risk
Heart Failure Risk Score: Not Applicable
Heart Score for Chest Pain Patients
STEMI patient?: Not applicable
Withdrawal Assessment of Alcohol
Withdrawal Assessment Completed?: Not applicable
Course
Orders/Labs/Results
Orders:
Orders
01/26/25 15:26
Basic Metabolic Panel Urgent
CBC/With Diff [Complete Blood Count/With Diff] Urgent
Urinalysis Reflex To Culture Urgent
Date Specimen was Collected: 01/26/25
Time Specimen was Collected: 15:24
Urine Microscopic Reflex Cult Urgent
Urine Culture Urgent
VARUN Source: U
Specimen Description:
Date Specimen was Collected: 01/26/25
Time Specimen was Collected: 15:24
01/26/25 15:31
Electrocardiogram (*1) Urgent
Reason for Study: Tachycardia
EKG- Treatment ONCE
01/26/25 16:06
0.9% Sodium Chloride 1000 ml [Nss] 1,000 ml IV BOLUS
01/26/25 16:07
CR Chest Portable - 1 View Urgent
Comment:
Reason For Exam: AMS
Reason Study Needs to be Portable: Unable to Transport
01/26/25 16:24
CefTRIAXone [Rocephin] 1,000 mg IV NOW STA
01/26/25 16:35
Comprehensive Metabolic Panel Urgent
Comment: ADD ON
Ionized Calcium Urgent
Parathyroid Hormone [Intact PTH Includes Calcium] Urgent
01/26/25 16:52
Add On- LAB Routine
Tests Added?: CMP
01/26/25 17:20
Admit/Transfer Patient As Directed
Co-Sign Provider:
Level of Care: Inpatient admission
Assign to:: Telemetry
Physician / Group: Odalys Joy
Diagnosis: hypercalcemia
Reason for Telemetry: Arrhythmia
Date to Stop Telemetry: 01/29/25
Time to Stop Telemetry: 11:00
Reason for Hospitalization: hypercalcemia
Expected length of stay greater than two midnights?: Yes
ELOS- Estimated Length of Stay in days: 3
I certify the patient meets the requirements for IP care: Yes
PRN Pain Medication Management As Directed
May give lesser potent ordered pain med per pt: Yes
preference::
Protocol:: Medication orders for pain may be administered in a
manner that supports deferring to patient preference
when the pt is:
- Requesting an ordered lesser potent pain medication.
Least to most potent pain medications are defined
as: acetaminophen < NSAID < tramadol < opioids
(morphine, oxycodone, hydromorphone).
- Requesting a lesser dose of the same medication IF
ORDERED.
- Requesting a less intrusive route of administration
if both routes are prescribed by the provider (PO <
IV).
01/26/25 17:21
Code Status As Directed
Resuscitation Status: Full Code
Based on pt advanced directive or healthcare POA form: Yes
Physician note:: per facility paperwork
01/26/25 18:20
Pro-BNP [NT-proBNP] Urgent
01/29/25 11:00
DC Protocol for Telemetry ONCE
Abnormal Lab Results
01/26/25 01/26/25
15:26 16:35
MCHC 31.7 L g/dL
(33.0-37.0)
RDW 14.6 H %
(11.5-14.5)
MPV 12.3 H fL
(7.4-10.4)
Monocytes % 9.9 H %
(1.7-9.3)
Chloride 110 H mmol/L 111 H mmol/L
(98-107) (98-107)
Carbon Dioxide 33 H mmol/L 35 H mmol/L
(22-30) (22-30)
Glucose 100 H mg/dl 103 H mg/dl
(70-99) (70-99)
Calcium 13.5 H* mg/dl 13.6 H* mg/dl
(8.4-10.2) (8.4-10.2)
Ionized Calcium 1.83 H* mMOL/L
(1.15-1.33)
AST 11 L U/L
(14-36)
Total Protein 6.2 L g/dl
(6.3-8.2)
Ur Occult Blood Reflex 4+ A
(Negative)
Leukocyte Esterase Rfl 3+ A
(Negative)
Urine RBC 16-20 A /HPF
(0-2)
Urine WBC (Reflex) 70-80 A /HPF
(0-5)
Urine Bacteria (Reflex) Many A
(Negative)
Urine Albumin (Reflex) 3+ A
(Neg - Trace)
01/26/25 15:26
01/26/25 16:35
Vital Signs
Initial and Last Documented VS:
Initial Vital Signs
Pulse Resp Pulse Ox
60 22 91
01/26/25 15:11 01/26/25 15:11 01/26/25 15:11
Last Documented Vital Signs
Temp Pulse Resp BP Pulse Ox
97.2 F 108 18 136/83 96
01/26/25 15:32 01/26/25 16:45 01/26/25 16:45 01/26/25 16:00 01/26/25 16:00
MDM/Problems Addressed
Differential Diagnosis Includes:
UTI, pneumonia, ICH, electrolyte derangement, covid/flu or other viral etiology, psychosis
MDM/Problems Addressed:
84-year-old female presenting to the ER for evaluation of reported change in mental status. She is unable to provide any history, unclear as to what patient's ultimate baseline is. There is no emergency contact listed on patient's paperwork from
[facility]. I attempted to contact the patient's daughter listed as emergency contact from previous visit on our records here however the telephone number left is not currently active. Patient mildly hypoxic on arrival, placed on 2 L via nasal
cannula with good response. Lab work initiated on arrival. Calcium returned at 13.5 which is possibly/likely cause however etiology unclear. Possibly related to meds. Baseline appears to be 10.4-10.5. IVF ordered. Plan for admit
Chronic conditions affecting care: Psychiatric illness
Acute Exacerbation and/or Progression of Chronic Illness: Psychiatric illness
*Pulse Oximetry
Patient hypoxic: no
*EKG
Heart Rate: 57
Rate: bradycardiac
Rhythm: sinus
[place]: left axis deviation
Ischemia: no ischemia
*Credit Operations Specialist Interpretation
Rate: normal
Rhythm: sinus
*Critical Care Note
Total Time (30-74mins, 75-104mins- exclusive of procedures): Not Applicable
Data Reviewed
Review of Other/Old Records Reveals: Labs and Records
Patient Management
Discussion with other providers: Hospitalist
Escalation/DeEscalation of care consider admission/obs:
Hospitalist team accepts for evaluation and treat patient's UA also showed 70-80 WBCs so Rocephin ordered to cover for urinary tract infection.
ED Attending Note
-
Portions of this chart may have been created with voice recognition software.� Occasional wrong word or��sound alike� substitutions may have occurred due to the inherent limitations of voice recognition software.
Discharge Plan
Departure
Patient Disposition: Admit
Date of Disposition: 01/26/25
Time of Disposition: 16:23
Presentation/result/management discussed w/ accepting MD/DO: Hospitalist
Discharge Problem:
Hypercalcemia, Altered mental status, UTI (urinary tract infection)
Interventions
Interventions:
*Risk Screen - Suicide Last Done: 01/26/25 15:11
*General Assessment Last Done: 01/26/25 15:11
*Neglect/Abuse Screening Last Done: 01/26/25 15:11
*ED COVID-19 Vaccine History Last Done: 01/26/25 15:11
ED- Pulmonary Assessment Last Done: 01/26/25 15:32
ED- Neurological Assessment Last Done: 01/26/25 15:32
ED- Cardiac Assessment Last Done: 01/26/25 15:32
ED Swallowing Screen Last Done: 01/26/25 15:32
[2025-01-26 16:14] LABS: Urine Bacteria Many (Negative); Urine Red Blood Cell 16-20 /HPF (0-2); Urine Squamous Cell 0-2 /LPF (Few); Urine White Cell 70-80 /HPF (0-5)
--- NOTE | 2025-01-26 16:26 | HPS.HSE ---
Family Physician
-
Family Physician: Sadi Clark
Chief Complaint
-
change in mental status
History of Present Illness
Patient is a 84-year-old female with past medical history significant for hypertension, hypercholesterolemia, COPD, GERD, dementia, schizophrenia, depression, bipolar and chronic chest pain who presented to [facility] for evaluation of reported change
in mental status. It was reported from [place] that patient normally will talk and joke around, today all she is doing is mumbling nonsensical speech. Patient responds to verbal stimuli and will respond when name is called, not able to provide any
further history.
Medical History
Past Medical History
Past Medical History: Reports Other
Additional Past Medical History:
hypertension
hypercholesterolemia
COPD
GERD
dementia
schizophrenia
depression
bipolar
chronic chest pain
Past Surgical History: Reports None
Social History
Unable to obtain full social history at this time due to: Dementia
Family History
Family History: Not pertinent
Allergies / Home Medications
Allergies reflects when Allergies were last updated in [employer].
Home Medications with original date entered in [employer]
Allergy/Medication List:
Allergies
Allergy/AdvReac Type Severity Reaction Status Date / Time
No Known Allergies Allergy Verified 09/24/24 18:08
Home Medications
acetaminophen 325 mg tablet (Tylenol) 650 mg PO Q4HPRN PRN mild pain/temp>100F 02/29/24
carboxymethylcellulose sodium 0.5 % eye drops (Refresh Tears) 1 drp BOTH EYES QID dry eyes 02/29/24
cholecalciferol (vitamin D3) 25 mcg (1,000 unit) tablet (Vitamin D3) 25 mcg PO DAILY Supplement 02/29/24
gabapentin 300 mg capsule 300 mg PO TID Pain 02/29/24
magnesium hydroxide 400 mg/5 mL oral suspension (Milk of Magnesia) 30 ml PO [id number] PRN if no BM in 3 days 02/29/24
perphenazine 4 mg tablet 4 mg PO BID schizophrenia 02/29/24
sodium phosphates 19 gram-7 gram/118 mL enema (Fleet Enema) 118 ml SD DAILYPRN PRN if dulcolax ineffective in 24 hrs 02/29/24
calcium carbonate 500 mg PO DAILY Supplement 03/13/24
ipratropium 0.5 mg-albuterol 3 mg (2.5 mg base)/3 mL nebulization soln 3 ml inhalation Q8HPRN PRN SOB/wheezing 03/13/24
bisacodyl 10 mg rectal suppository 10 mg SD DAILYPRN PRN constipation #0 ea 03/16/24
lorazepam 0.5 mg tablet 0.5 mg PO DAILY Mental Health/Anxiety #3 tabs 03/16/24
lorazepam 0.5 mg tablet (Ativan) 0.25 mg (1/2 x 0.5 mg) PO HS Mental Health/Anxiety #3 tabs 03/16/24
losartan 50 mg tablet 50 mg PO DAILY #0 tabs 03/16/24
methenamine hippurate 1 gram tablet 1 g PO DAILY #0 tabs 03/16/24
trihexyphenidyl 5 mg tablet 5 mg PO BID schizophrenia 09/25/24
Review of Systems
-
Unable to obtain full review of systems at this time due to: Dementia
Physical Exam
Vital Signs
Vital Signs
Temp Pulse Resp Pulse Ox
97.2 F 115 22 91
01/26/25 15:32 01/26/25 15:32 01/26/25 15:11 01/26/25 15:11
Physical Exam
General: Well Developed, Well Nourished, No Apparent Distress, Comfortable and Morbidly Obese
HEENT: NormoCephalic, Moist mucous membranes, Atraumatic, Nose Appears Normal and Ears Appear Normal
Respiratory: Clear and Non Labored Respirations
Cardiac: S1/S2 and Regular Rhythm
Breast: Deferred by me
GI: Soft, Non Tender and Normal Bowel Sounds; No Organomegaly
Rectal: Deferred by Provider
Genito-urinary: Deferred by me
Musculoskeletal: No Clubbing, No Cyanosis and No Edema
Skin: Warm and IV/Catheter Site
Neuro: Slurred Speech and Sedated
Psych: Apparent Dementia
Laboratory Results
-
01/26/25 15:26
01/26/25 15:26
Laboratory Results
Total Bilirubin Cancelled 01/26/25 15:26
AST Cancelled 01/26/25 15:26
ALT Cancelled 01/26/25 15:26
Alkaline Phosphatase Cancelled 01/26/25 15:26
Data Reviewed
-
Diagnostic Radiology: Report Reviewed by me (CXR: Extremely low lung volumes with crowding of central/vascular markings. Pulmonary vascularity at least top normal, unchanged.)
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
Lab Data: Labs Reviewed by me (Calcium 13.5)
Impression/Plan
-
IMPRESSION/PLAN:
#hypercalcemia unknown etiology
Calcium 13.5 (appears to be chronic with baseline 10.4-10.5)
EKG: SINUS BRADYCARDIA
LEFT AXIS DEVIATION
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
- Admit to telemetry
- Consult Nephrology
- IV Pamidronate 60mg per nephrology
- Ionized calcium, PTH, Vit D pending
- IVF if can tolerate
- trend BMP
#UTI
UA: suggestive of UTI
Urine Cx: pending
- IV Rocephin
- IVF if able to tolerate
#hypoxia
mildly hypoxic, SpO2 improved to mid 90s on 2L via NC
CXR: Extremely low lung volumes with crowding of central/vascular markings. Pulmonary vascularity at least top normal, unchanged.
- supplemental O2 wean as tolerated
#HFpEF
ECHO (09/25/2024): Normal left ventricular size and function. Normal regional wall motion. Mild concentric left ventricular hypertrophy. LV ejection fraction is 55-60% by
Wilkins's method of discs. Normal diastolic function.
Normal right ventricular size and function.
Normal atria.
Mitral annular calcification. Mild mitral regurgitation.
No prior study for comparison.
- daily weights
- I&Os
#hypertension
- continue losartan
#hypercholesterolemia
#COPD
- continue DuoNeb
#GERD
- hold calcium carbonate and Vit D
#dementia
#schizophrenia
#depression
- hold lorazepam, methenamine, perphenazine and trihexyphenidyl
#bipolar
#chronic chest pain
- continue gabapentin
Code status: full code
DVT prophylaxis: Lovenox sq
[2025-01-26] MEDS: NSS 1000 IV (16:37)
[2025-01-26] MEDS: ROCEPHIN 1000 MG IV (16:38)
[2025-01-26 16:46] LABS: Ionized Calcium 1.83 mMOL/L (1.15-1.33)
[2025-01-26 17:00] VITALS: BP 133/77
[2025-01-26 17:12] LABS: ALT (SGPT) 15 U/L (0-35); AST (SGOT) 11 U/L (14-36); Albumin 3.5 g/dl (3.5-5.0); Alkaline Phosphatase 99 U/L (38-126); Blood Urea Nitrogen 12 mg/dl (7-17); Calcium 13.6 mg/dl (8.4-10.2); Carbon Dioxide 35 mmol/L (22-30); Chloride 111 mmol/L (98-107); Estimated Creatinine Clearance 75 ml/min; Glucose 103 mg/dl (70-99); Potassium 3.7 mmol/L (3.5-5.1); Sodium 145 mmol/L (135-145); Total Bilirubin 0.7 mg/dl (0.2-1.3); Total Protein 6.2 g/dl (6.3-8.2); eGFR > 60.00
--- NOTE | 2025-01-26 17:50 | W.PN.UPDATE ---
Update Note
Progress Note Update
This is an addendum to H&P written by Hayde Lucia on 01/26/2025.� Patient seen and examined independently with PA.
89-year-old male past medical history of prostate cancer status post prostatectomy, hypercholesteremia, TIA, glaucoma, cataracts,
This is an addendum to H&P written by Ashley Hagen on 01/26/2025.� Patient seen and examined independently with [employer].
84-year-old female past medical history of chronic HFpEF, GERD, morbid obesity, dementia, COPD, schizophrenia, depression, bipolar presenting with altered mental status.
Urinalysis suggestive of infection.� Chest x-ray shows low lung volumes, crowding of central/vascular markings.� Vascularity is at least top normal and unchanged.
Labs show severe hypercalcemia with calcium of 13.6.� Ionized calcium 1.83.
Patient with acute metabolic encephalopathy secondary to hypercalcemia versus UTI.
Would want to treat with IV fluids however patient appears to be in some respiratory distress. Check BNP.�Hold vitamin D and calcium supplement if she is still taking.� Check vitamin D and PTH level.� Start pamidronate.� Nephrology consulted.
Await urine culture.� Empirically treat with ceftriaxone given history of UTI and metabolic encephalopathy.
[2025-01-26 18:00] VITALS: BP 142/130
[2025-01-26 18:46] LABS: NT-proBNP 514 pg/ml
[2025-01-26] MEDS: AREDIA 270 MG IV (19:16)
[2025-01-26 21:48] VITALS: BP 166/146
[2025-01-26 22:00] VITALS: BP 171/141
[2025-01-26] MEDS: LOVENOX 40 MG SC (22:32)
[2025-01-26] MEDS: REFRESH EYE DROPS (PF) 1 DROPS BOTH EYES (22:32)
[2025-01-26 22:41] LABS: Phosphorus 2.8 mg/dl (2.5-4.5)
[2025-01-26 22:57] LABS: Vitamin D, 25-OH*** 24.8 ng/mL (30-80)
[2025-01-26 23:16] VITALS: BP 122/72
[2025-01-27] VITALS (7 sets, daily range): BP systolic 121–157; BP diastolic 67–81; PULSE 60–71; O2SAT 96; BMI 37.6
[2025-01-27] MEDS: NEURONTIN 300 MG PO ×4 (00:04→22:02)
[2025-01-27] MEDS: NSS 1000 IV ×3 (00:04→13:08)
[2025-01-27] MEDS: TRILAFON 4 MG PO ×3 (00:14→20:25)
[2025-01-27] MEDS: ARTANE 5 MG PO ×3 (00:15→20:25)
--- NOTE | 2025-01-27 04:33 | PTCARENOTE ---
Patient received from ED via stretcher and was pulled to bed by staff. Unable to orient to room and surroundings. Patient with garble speech, unable to answer some questions. See nursing assessment for physical findings. IVF per order. Bed
alarm in place. LLE with ortho boot in place.
--- NOTE | 2025-01-27 07:23 | W.PN.HOSP.TC ---
Addendum entered and electronically signed by Alis Gold MD 01/27/25 14:45:
I saw and evaluated the patient independently. I reviewed the resident�s note and agree with findings and plan as documented by Dr. Crowell.
GENERAL: well developed, well nourished, female in no apparent distress
HEENT: NC/AT
HEART: regular rate and rhythm, +S1, +S2
LUNGS : clear to auscultation bilaterally
ABDOM: soft, nontender, nondistended, + bowel sounds
EXT: no cyanosis, clubbing, or edema--left leg with walking boot
NEUROLOGIC: apparent dementia
lab values from 7:30 AM 01/27/25 are incorrect--labs drawn above IVF running
Hypercalcemia--likely due to primary hyperparathyroidism--ionized calcium, serum calcium and iPTH all elevated--stopped calcium supplements--not vit D toxic, in fact, level low--was on IVF--pt with crackles and SOB, hypoxia (possibly due to
exacerbation of HFpEF from IVF administration)--stop IVF--consider one time dose of lasix--s/p IV pamidronate--cont sensipar--apprec renal
UTI-- UA suggestive of UTI- Continue IV Rocephin
Hypoxia likely due to exacerbation of HFpEF due to IVF--Currently on 2L O2--supplemental O2 wean as tolerated
HFpEF with acute exacerbation from IVF administration--ECHO (09/25/2024): Mild concentric left ventricular hypertrophy. EF 55-60%. Mild mitral regurgitation--daily weights - monitor I&Os
Essential hypertension- continue losartan
COPD - continue DuoNeb
GERD - hold calcium carbonate and Vit D
dementia/schizophrenia/depression/bipolar- Continue lorazepam, methenamine, perphenazine and trihexyphenidyl- continue gabapentin
Code status--full code
DVT proph--Lovenox sq
Original Note:
Today's Communication/Plan
-
sensipar
resend UA and Urine cx
Temporarily hold IVF and one time Lasix dose
Assessment / Plan
Assessment / Plan
IMPRESSION:
Patient is a 84-year-old female with past medical history significant for hypertension, hypercholesterolemia, COPD, GERD, dementia, schizophrenia, depression, bipolar and chronic chest pain who presented to [facility] ED for evaluation of reported change
in mental status.
PLAN:
#Hypercalcemia unknown etiology
- Calcium 13.5 (appears to be chronic with baseline 10.4-10.5)
- Consult Nephrology, appreciated
- Discontinued IV Pamidronate
- Ionized calcium elevated, PTH elevated 229, Vit D 25 hydroxy- decreased
- Will hold temporarily IVF as pt seemed SOB and crackles on exam.
- one time dose of Lasix to be given
- Started sensipar as per nephro
- trend BMP
#UTI
- UA: suggestive of UTI
- Urine Cx likely contamination. will resend UA and urine culture
- Continue IV Rocephin
#Hypoxia likely due to exacerbation of HFpEF due to IVF
- Currently on 2L O2
-CXR 01/26: Extremely low lung volumes with crowding of central/vascular markings. Pulmonary vascularity at least top normal, unchanged.
- supplemental O2 wean as tolerated
#HFpEF
-ECHO (09/25/2024): Mild concentric left ventricular hypertrophy. EF 55-60%. Mild mitral regurgitation.
- daily weights
- monitor I&Os
#hypertension
- continue losartan
#COPD
- continue DuoNeb
#GERD
- hold calcium carbonate and Vit D
#dementia/schizophrenia/depression/bipolar
- Continue lorazepam, methenamine, perphenazine and trihexyphenidyl
- continue gabapentin
Code status: full code
DVT prophylaxis: Lovenox sq
Anticipated Discharge: 24 - 48 hours
Subjective/Interval History
-
Date of Service: January 27, 2025
Patient was not oriented to time or place during my exam. She seems short of breath.
Objective Data
-
Labs:
Laboratory Results
01/27/25
06:00
WBC Pending
Hgb Pending
Hct Pending
Plt Count Pending
Sodium Pending
Potassium Pending
Chloride Pending
Carbon Dioxide Pending
BUN Pending
Creatinine Pending
Glucose Pending
Calcium Pending
Vital Signs:
Vital Signs
Temp Pulse Resp BP Pulse Ox
98.3 F 60 18 140/77 96
01/27/25 03:22 01/27/25 03:22 01/27/25 03:22 01/27/25 03:22 01/27/25 03:22
I&O
01/26/25 01/27/25 01/28/25
06:59 06:59 06:59
Intake Total 700 / 700
Output Total 225 / 225
Balance 475 / 475
Review of Systems
-
Unable to obtain full review of systems at this time due to: Dementia
Physical Exam
-
General: Appears Chronically Ill and Obese
HEENT: Oxygen (2L)
Respiratory: Crackles
Cardiac: Regular Rhythm and S1/S2
GI: Soft, Nontender and Nondistended
Musculoskeletal: Other (boot present on L foot)
Skin: Warm and Dry
Neuro: Awake, Alert and Oriented
[2025-01-27 08:18] LABS: Hemoglobin 9.8 g/dL (12.0-16.0); Mean Corp Hgb Conc. 32.7 g/dL (33.0-37.0); Mean Corpuscular Hgb 29.6 pg (27.0-31.0); Mean Corpuscular Volume 90.6 fL (81.0-99.0); Mean Platelet Volume 12.8 fL (7.4-10.4); Platelet Count 153 10^3/uL (130-400); Red Blood Cell Count 3.31 10^6/uL (4.20-5.40); Red Cell Dist. Width 14.6 % (11.5-14.5); White Blood Cell Count 4.1 10^3/uL (4.8-10.8)
[2025-01-27] MEDS: REFRESH EYE DROPS (PF) 1 DROPS BOTH EYES ×4 (08:36→22:02)
[2025-01-27 08:52] LABS: Blood Urea Nitrogen 9 mg/dl (7-17); Calcium 9.7 mg/dl (8.4-10.2); Carbon Dioxide 24 mmol/L (22-30); Chloride 121 mmol/L (98-107); Estimated Creatinine Clearance 86 ml/min; Glucose 76 mg/dl (70-99); Potassium 2.7 mmol/L (3.5-5.1); Sodium 147 mmol/L (135-145); eGFR > 60.00
[2025-01-27 09:23] LABS: Intact PTH 229.1 pg/ml (13.6-85.8)
[2025-01-27] MEDS: COZAAR 50 MG PO (09:41)
--- NOTE | 2025-01-27 10:12 | PTOTSP ---
Speech Therapy Evaluation:
Pt with acute on chronic risk factors of dysphagia (COPD, GERD, Dementia, Schizophrenia, acute change in mental status). She demonstrated moderate oral impairments on this date, likely related to mentation/cognitive status. No overt s/sx of
aspiration. CXR without PNA, WBC WNL, pt on room air, and pt afebrile. Suspect improvement in swallow function once mentation improves.
Recommend:
1. Initiate IDDSI Level 5 (minced and moist) solids and thin liquids
2. Medications crushed in puree
3. Full assistance and supervision with meals
4. Strict aspiration and reflux precautions
5. Low threshold for NPO. D/c oral diet if worsening in chest imaging/respiratory status or concerned for aspiration
6. [employer] to follow to monitor tolerance of diet and assess candidacy for diet upgrades
[2025-01-27 11:58] LABS: % Basophils 0.6 % (0-2); % Eosinophils 2.5 % (0-6); % Immature Granulocytes 0.4 % (0-0.5); % Lymphocytes 17.6 % (20.5-51.1); % Monocytes 8.2 % (1.7-9.3); % Neutrophils 70.7 % (42.2-75.2); Absolute Eosinophils 0.1 10^3/uL (0-0.7); Absolute Lymphocytes 0.8 10^3/uL (1.2-3.4); Absolute Monocytes 0.4 10^3/uL (0.1-0.6); Absolute Neutrophils 3.4 10^3/uL (1.4-6.5); Hematocrit 37.8 % (37.0-47.0); Hemoglobin 12.2 g/dL (12.0-16.0); Mean Corp Hgb Conc. 32.3 g/dL (33.0-37.0); Mean Corpuscular Hgb 29.5 pg (27.0-31.0); Mean Corpuscular Volume 91.3 fL (81.0-99.0); Nucleated Red Blood Cells % 0 %; Red Blood Cell Count 4.14 10^6/uL (4.20-5.40); Red Cell Dist. Width 14.6 % (11.5-14.5); White Blood Cell Count 4.8 10^3/uL (4.8-10.8)
[2025-01-27 12:00] LABS: Mean Platelet Volume 12.9 fL (7.4-10.4); Platelet Count 117 10^3/uL (130-400)
[2025-01-27 12:06] LABS: Blood Urea Nitrogen 10 mg/dl (7-17); Calcium 12.6 mg/dl (8.4-10.2); Carbon Dioxide 28 mmol/L (22-30); Chloride 116 mmol/L (98-107); Estimated Creatinine Clearance 86 ml/min; Glucose 97 mg/dl (70-99); Potassium 3.6 mmol/L (3.5-5.1); Sodium 147 mmol/L (135-145); eGFR > 60.00
--- NOTE | 2025-01-27 12:08 | W.CON.NEPH ---
Consultation
-
Date/Time Consultation Requested: 01/27/2025 11 AM
Date/Time Consultation Performed: 01/27/2025 12 PM
Requesting Provider: Dr. Joy
Performing Provider: Dr. Bardales
Reason for Consultation: Hypercalcemia
Medical History
-
Chief Complaint: Hypercalcemia
History of Present Illness:
This is an 84-year-old female who resides at a snf who has baseline dementia with schizophrenia on medications, hypertension on a monotherapy regimen which is controlled who appears to have had mild hypercalcemia in the past without workup.
She was brought to the emergency room because of change in mental status by the snf report. Speech was garbled. On admission she was noted to have a calcium level of greater than 13. She received pamidronate in the emergency room.
Past Medical History
hypertension
hypercholesterolemia
COPD
GERD
dementia
schizophrenia
depression
bipolar
chronic chest pain
Social History
Tobacco: Non-Smoker
Alcohol: None
Family History
Family History: Not Pertinent
Allergies / Home Medications
Allergy/AdvReac Type Severity Reaction Status Date / Time
No Known Allergies Allergy Verified 09/24/24 18:08
�Medication �Instructions �Recorded �Confirmed �Type
acetaminophen 325 mg tablet 650 mg PO Q4HPRN PRN mild 02/29/24 01/26/25 History
(Tylenol) pain/temp>100F
carboxymethylcellulose sodium 0.5 1 drp BOTH EYES QID dry eyes 02/29/24 01/26/25 History
% eye drops (Refresh Tears)
cholecalciferol (vitamin D3) 25 25 mcg PO DAILY Supplement 02/29/24 01/26/25 History
mcg (1,000 unit) tablet (Vitamin
D3)
gabapentin 300 mg capsule 300 mg PO TID Pain 02/29/24 01/26/25 History
magnesium hydroxide 400 mg/5 mL 30 ml PO [id number] PRN if no BM in 3 02/29/24 01/26/25 History
oral suspension (Milk of Magnesia) days
perphenazine 4 mg tablet 4 mg PO BID schizophrenia 02/29/24 01/26/25 History
sodium phosphates 19 gram-7 118 ml [place] DAILYPRN PRN if dulcolax 02/29/24 01/26/25 History
gram/118 mL enema (Fleet Enema) ineffective in 24 hrs
calcium carbonate 500 mg PO DAILY Supplement 03/13/24 01/26/25 History
ipratropium 0.5 mg-albuterol 3 mg 3 ml inhalation Q8HPRN PRN 03/13/24 01/26/25 History
(2.5 mg base)/3 mL nebulization SOB/wheezing
soln
bisacodyl 10 mg rectal suppository 10 mg [place] DAILYPRN PRN constipation 03/16/24 01/26/25 Rx
#0 ea
lorazepam 0.5 mg tablet 0.5 mg PO DAILY Mental 03/16/24 01/26/25 Rx
Health/Anxiety #3 tabs
lorazepam 0.5 mg tablet (Ativan) 0.25 mg (1/2 x 0.5 mg) PO HS 03/16/24 01/26/25 Rx
Mental Health/Anxiety #3 tabs
losartan 50 mg tablet 50 mg PO DAILY #0 tabs 03/16/24 01/26/25 Rx
methenamine hippurate 1 gram tablet 1 g PO DAILY #0 tabs 03/16/24 01/26/25 Rx
trihexyphenidyl 5 mg tablet 5 mg PO BID schizophrenia 09/25/24 01/26/25 History
Review of Systems
-
Could not be obtained
Unable to obtain full review of systems at this time due to: Dementia
Physical Exam
Vital Signs
Vital Signs
Temp Pulse Resp BP Pulse Ox
97.3 F 71 24 157/80 97
01/27/25 07:30 01/27/25 09:41 01/27/25 07:30 01/27/25 09:41 01/27/25 07:30
Lab Results
WBC 4.8 10^3/uL (4.8-10.8) 01/27/25 11:06
RBC 4.14 10^6/uL (4.20-5.40) L 01/27/25 11:06
Hgb 12.2 g/dL (12.0-16.0) D 01/27/25 11:06
Hct 37.8 % (37.0-47.0) 01/27/25 11:06
Plt Count 117 10^3/uL (130-400) L D 01/27/25 11:06
Sodium 147 mmol/L (135-145) H 01/27/25 11:06
Potassium 3.6 mmol/L (3.5-5.1) D 01/27/25 11:06
Chloride 116 mmol/L (98-107) H 01/27/25 11:06
Carbon Dioxide 28 mmol/L (22-30) 01/27/25 11:06
BUN 10 mg/dl (7-17) 01/27/25 11:06
Creatinine 0.6 mg/dL (0.6-1.0) 01/27/25 11:06
eGFR > 60.00 01/27/25 11:06
Glucose 97 mg/dl (70-99) 01/27/25 11:06
Calcium 12.6 mg/dl (8.4-10.2) H D 01/27/25 11:06
Phosphorus 2.8 mg/dl (2.5-4.5) 01/26/25 22:18
Mww-N-Sueytlmkemg Pept 514 pg/ml 01/26/25 18:20
Albumin 3.5 g/dl (3.5-5.0) 01/26/25 16:35
Laboratory Tests
09/27/24 01/26/25 01/26/25
05:08 15:26 16:35
Calcium 10.4 H 13.5 H*
Phosphorus
Vitamin D 25-Hydroxy
PTH Intact 229.1 H
01/26/25
22:18
Calcium
Phosphorus 2.8
Vitamin D 25-Hydroxy 24.8 L
PTH Intact
Physical Exam
Patient is awake and in no distress. Pupils are equal round and reactive to light, extraocular movements are intact, sclera were anicteric. Hearing was normal, ears and nose are intact. Oropharynx was clear and dry. Neck was supple with trachea
midline and no thyromegaly. Heart was regular rate and rhythm without rubs. Lower extremities without edema. Lungs were clear to auscultation bilaterally and with normal excursion. Abdomen was soft, nontender, with normal active bowel sounds, and no
hepatosplenomegaly. Skin was without rash and with normal turgor.
Data Reviewed
-
Radiology: Image Personally Visualized and interpreted (Chest x-ray 01/26/2025 by reading low lung volumes)
Medical Tests (Nuc Med, Echo etc): Image Personally Visualized and interpreted (EKG 01/26/2025 by reading shows sinus bradycardia left axis deviation inferior Q)
Labs: Labs Reviewed by me
Old Records: Reviewed
Assessment/Plan
-
Assessment
Hypercalcemia
Hyponatremia
Dementia
Schizophrenia
Hypertension
Heart failure preserved ejection fraction
Plan
Status post midnight
IV fluid with saline
Laboratory values demonstrate primary hyperparathyroidism, start Sensipar 30 mg daily
She is clearly not a candidate for any surgery so imaging of the neck is not needed
Follow BMP
Check 1,25 vitamin D level
[2025-01-27] MEDS: SENSIPAR 30 MG PO (13:08)
[2025-01-27] MEDS: LASIX 40 MG IV (14:00)
--- NOTE | 2025-01-27 14:41 | PTOTSP ---
Pt currently requiring max to total assist for all self care and bed mobility; sat edge of bed x ~10 min with max A progressing to min A for cga. Pt not following directions; speech is nonsensical. Case management notes from prior hosp in 09/2024
indicated pt was total care and [facility] transfer. Skilled OT not indicated at this time.
--- NOTE | 2025-01-27 16:10 | CM ---
Patient seen at bedside with physician on . Patient from [facility], moth exterminator patient on bed hold. Patient non ambulatory, [facility] lift and set up for feeding at SNF. CM updated physician and spoke with liaison regarding patient ability to
return to SNF. CM will continue to follow for discharge planning needs.
Plan; return to SNF
[2025-01-27] MEDS: ROCEPHIN 1000 MG IV (17:15)
[2025-01-27] MEDS: LOVENOX 40 MG SC (17:16)
[2025-01-27] MEDS: STERILE WATER FOR INJECTION 10 ML IV (17:16)
[2025-01-27] MEDS: FLUSH (NSS) 1 FLUSH IV (20:26)
[2025-01-28 03:03] VITALS: BP 123/95
[2025-01-28 06:00] VITALS: BMI 37.2
[2025-01-28 07:30] VITALS: BP 175/75
--- NOTE | 2025-01-28 08:02 | W.PN.HOSP.TC ---
Addendum entered and electronically signed by Alis Gold MD 01/28/25 13:32:
I saw and evaluated the patient independently. I reviewed the resident�s note and agree with findings and plan as documented by Dr. Crowell.
GENERAL: well developed, well nourished, female in no apparent distress
HEENT: NC/AT
HEART: regular rate and rhythm, +S1, +S2
LUNGS : clear to auscultation bilaterally
ABDOM: soft, nontender, nondistended, + bowel sounds
EXT: no cyanosis, clubbing, or edema--left leg with walking boot
NEUROLOGIC: apparent dementia
lab values from 7:30 AM 01/27/25 are incorrect--labs drawn above IVF running
Hypercalcemia--likely due to primary hyperparathyroidism--ionized calcium, serum calcium and iPTH all elevated--stopped calcium supplements--not vit D toxic, in fact, level low--pt with crackles and SOB, hypoxia (possibly due to exacerbation of
HFpEF from IVF administration)--s/p one time dose of lasix--s/p IV pamidronate--cont sensipar--apprec renal
hypernatremia--follow--repeat lab later today
presumed UTI-- UA suggestive of UTI but urine culture showed >100K colonies of mixed jenifer--Continue IV Rocephin, would transition to oral meds and finish treatment
Hypoxia likely due to exacerbation of HFpEF due to IVF--Currently on 2L O2--supplemental O2 wean as tolerated
HFpEF with acute exacerbation from IVF administration--ECHO (09/25/2024): Mild concentric left ventricular hypertrophy. EF 55-60%. Mild mitral regurgitation--daily weights - monitor I&Os
Essential hypertension- continue losartan
COPD - continue DuoNeb
GERD - hold calcium carbonate and Vit D
dementia/schizophrenia/depression/bipolar- Continue lorazepam, methenamine, perphenazine and trihexyphenidyl- continue gabapentin
Code status--full code
DVT proph--Lovenox sq
anticipate d/c back to SNF tomorrow?
Original Note:
Today's Communication/Plan
-
continue to wean off o2
continue abx
Assessment / Plan
Assessment / Plan
IMPRESSION:
Patient is a 84-year-old female with past medical history significant for hypertension, hypercholesterolemia, COPD, GERD, dementia, schizophrenia, depression, bipolar and chronic chest pain who presented to [facility] ED for evaluation of reported change
in mental status.
PLAN:
#Hypercalcemia likely due to primary hyperparathyroidism
- Calcium 13.5 on adm (appears to be chronic with baseline 10.4-10.5)
- Consult Nephrology, appreciated
- Discontinued IV Pamidronate
- Ionized calcium elevated, PTH elevated 229, Vit D 25 hydroxy- decreased
-s/p one time dose of Lasix
- IVF held yesterday as pt seemed sob and crackles heard on exam; today no signs of volume overload
- Continue sensipar as per nephro
- hypernatremia at 149 likely due to lasix; will monitor for now and repeat bmp in afternoon
- calcium downtrending, today at 11.7
-repleted K
- trend BMP
#UTI
- UA: suggestive of UTI
- Urine Cx: likely contamination. will not repeat as pt mental status improving and is already on abx
- Continue IV Rocephin and will transition to oral abx on discharge
#Hypoxia likely due to exacerbation of HFpEF due to IVF
- Currently on 2L O2
-CXR 01/26: Extremely low lung volumes with crowding of central/vascular markings. Pulmonary vascularity at least top normal, unchanged.
- supplemental O2 wean as tolerated
#HFpEF
-ECHO (09/25/2024): Mild concentric left ventricular hypertrophy. EF 55-60%. Mild mitral regurgitation.
- daily weights (seemed to have a 6kg wt loss in 2 days but based on bed weight/may not be very accurate/has received lasix)
- monitor I&Os
#hypertension
- continue losartan
#COPD
- continue DuoNeb
#GERD
- hold calcium carbonate and Vit D
#dementia/schizophrenia/depression/bipolar
- Continue lorazepam, methenamine, perphenazine and trihexyphenidyl
- continue gabapentin
Code status: full code
DVT prophylaxis: Lovenox sq
Anticipated Discharge: 24 - 48 hours
Subjective/Interval History
-
Date of Service: January 28, 2025
Patient seemed more oriented today and was able to answer appropriately with 'hospital' when asked where she is. Denies any pain.
Objective Data
-
Labs:
Laboratory Results
01/28/25
07:58
WBC Pending
Hgb Pending
Hct Pending
Plt Count Pending
Sodium Pending
Potassium Pending
Chloride Pending
Carbon Dioxide Pending
BUN Pending
Creatinine Pending
Glucose Pending
Calcium Pending
Vital Signs:
Vital Signs
Temp Pulse Resp BP Pulse Ox
97.3 F 89 24 123/95 96
01/28/25 03:03 01/28/25 03:03 01/28/25 03:03 01/28/25 03:03 01/28/25 03:03
I&O
01/27/25 01/28/25 01/29/25
06:59 06:59 06:59
Intake Total 700 / 700 170 / 170
Output Total 225 / 225
Balance 475 / 475 170 / 170
Review of Systems
-
Unable to obtain full review of systems at this time due to: Dementia
Physical Exam
-
General: Appears Chronically Ill and Obese
HEENT: Oxygen (2L)
Respiratory: Clear to Auscultation
Cardiac: Regular Rhythm and S1/S2
GI: Soft, Nontender and Nondistended
Musculoskeletal: Other (boot present on L foot)
Skin: Warm and Dry
Neuro: Awake, Alert and Oriented
[2025-01-28 08:29] LABS: Hematocrit 38.4 % (37.0-47.0); Hemoglobin 12.2 g/dL (12.0-16.0); Mean Corp Hgb Conc. 31.8 g/dL (33.0-37.0); Mean Corpuscular Hgb 29.1 pg (27.0-31.0); Mean Corpuscular Volume 91.6 fL (81.0-99.0); Mean Platelet Volume 11.8 fL (7.4-10.4); Platelet Count 175 10^3/uL (130-400); Red Blood Cell Count 4.19 10^6/uL (4.20-5.40); Red Cell Dist. Width 14.5 % (11.5-14.5); White Blood Cell Count 6.2 10^3/uL (4.8-10.8)
[2025-01-28 09:19] LABS: Blood Urea Nitrogen 10 mg/dl (7-17); Calcium 11.7 mg/dl (8.4-10.2); Carbon Dioxide 37 mmol/L (22-30); Chloride 111 mmol/L (98-107); Estimated Creatinine Clearance 73 ml/min; Glucose 97 mg/dl (70-99); Potassium 3.2 mmol/L (3.5-5.1); Sodium 148 mmol/L (135-145); eGFR > 60.00
[2025-01-28] MEDS: REFRESH EYE DROPS (PF) 1 DROPS BOTH EYES ×3 (10:03→21:11)
[2025-01-28] MEDS: ARTANE 5 MG PO ×2 (10:03→20:20)
[2025-01-28] MEDS: NEURONTIN 300 MG PO ×3 (10:03→21:11)
[2025-01-28] MEDS: SENSIPAR 30 MG PO (10:03)
[2025-01-28] MEDS: TRILAFON 4 MG PO ×2 (10:09→20:20)
[2025-01-28] MEDS: COZAAR 50 MG PO (10:09)
[2025-01-28 10:50] VITALS: BP 124/54
[2025-01-28] MEDS: KCL 40 MEQ PO ×2 (11:20→21:51)
[2025-01-28 11:31] VITALS: BP 166/65
[2025-01-28] MEDS: REFRESH EYE DROPS (PF) BOTH EYES (13:54)
--- NOTE | 2025-01-28 13:58 | CM ---
Addendum entered by Dottie Mazariegos 01/28/25 16:36:
ambulance forms faxed to and CM spoke with munitions handler to confirm, plan for transfer tomorrow pending physician assessment
Addendum entered by Dottie Mazariegos 01/28/25 14:02:
CM attempted to reach patient daughter Rosalba at [phone] phone busy.
Original Note:
Patient seen at bedside on with physician. Patient responded with unclear sentence when asked how she was doing. Patient for return to SNF when medically appropriate. CM sent update to admissions at SNF. CM will continue to follow for
discharge planning needs.
Plan; return to SNF; [facility].
--- NOTE | 2025-01-28 14:03 | W.PN.NEPH.PH ---
Today's Communication / Plan
-
K
Assessment/Plan
-
Assessment
Hypercalcemia
Hyponatremia
Dementia
Schizophrenia
Hypertension
Heart failure preserved ejection fraction
Plan
off IVF
Laboratory values demonstrate primary hyperparathyroidism, continue Sensipar 30 mg daily
She is clearly not a candidate for any surgery so imaging of the neck is not needed
Follow BMP
await 1,25 vitamin D level
replete K
for additional lasix
may need D5W if Na rises further
-
-
Date of Service: January 28, 2025
CC / HPI / ROS
-
Chief Complaint:
hypercalcemia
History of Present Illness:
Calcium down to 11.7 after aredia
BP stable
K low 3.2
Na up to 148
Cr stable 0.7
Review of Systems:
no CP/SOB
wearing NC
weight down
Labs
-
Labs:
WBC 6.2 10^3/uL (4.8-10.8) 01/28/25 07:58
RBC 4.19 10^6/uL (4.20-5.40) L 01/28/25 07:58
Hgb 12.2 g/dL (12.0-16.0) 01/28/25 07:58
Hct 38.4 % (37.0-47.0) 01/28/25 07:58
Plt Count 175 10^3/uL (130-400) D 01/28/25 07:58
Sodium 148 mmol/L (135-145) H 01/28/25 07:58
Potassium 3.2 mmol/L (3.5-5.1) L 01/28/25 07:58
Chloride 111 mmol/L (98-107) H 01/28/25 07:58
Carbon Dioxide 37 mmol/L (22-30) H 01/28/25 07:58
BUN 10 mg/dl (7-17) 01/28/25 07:58
Creatinine 0.7 mg/dL (0.6-1.0) 01/28/25 07:58
eGFR > 60.00 01/28/25 07:58
Glucose 97 mg/dl (70-99) 01/28/25 07:58
Calcium 11.7 mg/dl (8.4-10.2) H 01/28/25 07:58
Phosphorus 2.8 mg/dl (2.5-4.5) 01/26/25 22:18
Cmz-Z-Plvagmmzkjk Pept 514 pg/ml 01/26/25 18:20
Albumin 3.5 g/dl (3.5-5.0) 01/26/25 16:35
Physical Exam
-
Vital Signs:
Vital Signs
Temp Pulse Resp BP Pulse Ox
97.6 F 60 20 166/65 96
01/28/25 11:31 01/28/25 11:31 01/28/25 11:31 01/28/25 11:31 01/28/25 11:31
[2025-01-28 15:00] VITALS: BP 163/89
[2025-01-28] MEDS: ROCEPHIN 1000 MG IV (17:55)
[2025-01-28] MEDS: STERILE WATER FOR INJECTION 10 ML IV (17:55)
[2025-01-28] MEDS: LOVENOX 40 MG SC (17:56)
[2025-01-28 19:16] VITALS: BP 135/50
[2025-01-28 21:20] LABS: Blood Urea Nitrogen 13 mg/dl (7-17); Calcium 11.4 mg/dl (8.4-10.2); Carbon Dioxide 35 mmol/L (22-30); Chloride 108 mmol/L (98-107); Estimated Creatinine Clearance 73 ml/min; Glucose 132 mg/dl (70-99); Potassium 3.3 mmol/L (3.5-5.1); Sodium 144 mmol/L (135-145); eGFR > 60.00
[2025-01-29 03:29] VITALS: BP 135/67
[2025-01-29 06:00] VITALS: BMI 38.0
[2025-01-29 07:01] VITALS: BP 133/60
--- NOTE | 2025-01-29 07:23 | W.PN.HOSP.TC ---
Addendum entered and electronically signed by Alis Gold MD 01/29/25 13:06:
I saw and evaluated the patient independently. I reviewed the resident�s note and agree with findings and plan as documented by Dr. Crowell.
GENERAL: well developed, well nourished, female in no apparent distress
HEENT: NC/AT
HEART: regular rate and rhythm, +S1, +S2
LUNGS : clear to auscultation bilaterally
ABDOM: soft, nontender, nondistended, + bowel sounds
EXT: no cyanosis, clubbing, or edema--left leg with walking boot
NEUROLOGIC: apparent dementia
lab values from 7:30 AM 01/27/25 are incorrect--labs drawn above IVF running
Hypercalcemia--likely due to primary hyperparathyroidism--ionized calcium, serum calcium and iPTH all elevated--stopped calcium supplements--not vit D toxic, in fact, level low--pt with crackles and SOB, hypoxia (possibly due to exacerbation of
HFpEF from IVF administration)--s/p one time dose of lasix--s/p IV pamidronate--cont sensipar--apprec renal
hypernatremia--follow--repeat lab improved
presumed UTI-- UA suggestive of UTI but urine culture showed >100K colonies of mixed jenifer--Continue IV Rocephin, would transition to oral meds and finish treatment
Hypoxia likely due to exacerbation of HFpEF due to IVF--Currently on 2L O2--supplemental O2 wean as tolerated
HFpEF with acute exacerbation from IVF administration--ECHO (09/25/2024): Mild concentric left ventricular hypertrophy. EF 55-60%. Mild mitral regurgitation--daily weights - monitor I&Os
Essential hypertension- continue losartan
COPD - continue DuoNeb
GERD - hold calcium carbonate and Vit D
dementia/schizophrenia/depression/bipolar- Continue lorazepam, methenamine, perphenazine and trihexyphenidyl- continue gabapentin
Code status--full code
DVT proph--Lovenox sq
OK for D/C
Original Note:
Today's Communication/Plan
-
continue sensipar
discharge to SNF
Assessment / Plan
Assessment / Plan
IMPRESSION:
Patient is a 84-year-old female with past medical history significant for hypertension, hypercholesterolemia, COPD, GERD, dementia, schizophrenia, depression, bipolar and chronic chest pain who presented to [facility] ED for evaluation of reported change
in mental status.
PLAN:
#Hypercalcemia likely due to primary hyperparathyroidism
- Calcium 13.5 on adm (appears to be chronic with baseline 10.4-10.5)
- Consult Nephrology, appreciated
- Discontinued IV Pamidronate
- Ionized calcium elevated, PTH elevated 229, Vit D 25 hydroxy- decreased
-s/p one time dose of Lasix
- IVF discontinued
- Continue sensipar as per nephro
- stopped calcium carbonate supplements
- hypernatremia at 149 likely due to lasix; repeat bmp NA wnl. repleted K
- calcium downtrending, today at 10.7
- dispo to SNF
# Presumed UTI
- UA: suggestive of UTI
- Urine Cx: likely contamination. will not repeat as pt mental status improving and is already on abx
- Continue IV Rocephin and will transition to oral abx on discharge
- Transition to cefdinir
#Hypoxia likely due to exacerbation of HFpEF due to IVF
- Currently on 2L O2
-CXR 01/26: Extremely low lung volumes with crowding of central/vascular markings. Pulmonary vascularity at least top normal, unchanged.
- supplemental o2 weaned
#HFpEF
-ECHO (09/25/2024): Mild concentric left ventricular hypertrophy. EF 55-60%. Mild mitral regurgitation.
- daily weights (seemed to have a 6kg wt loss in 2 days but based on bed weight/may not be very accurate/has received lasix)
- monitor I&Os
#hypertension
- continue losartan
#COPD
- continue DuoNeb
#GERD
- hold calcium carbonate and Vit D
#dementia/schizophrenia/depression/bipolar
- Continue lorazepam, methenamine, perphenazine and trihexyphenidyl
- continue gabapentin
Code status: full code
DVT prophylaxis: Lovenox sq
Anticipated Discharge: Within 24 hours
Subjective/Interval History
-
Date of Service: January 29, 2025
Patient was a little more coherent today.
Objective Data
-
Labs:
Laboratory Results
01/28/25 01/29/25
20:53 06:54
WBC Pending
Hgb Pending
Hct Pending
Plt Count Pending
Sodium 144 Pending
Potassium 3.3 L Pending
Chloride 108 H Pending
Carbon Dioxide 35 H Pending
BUN 13 Pending
Creatinine 0.7 Pending
Glucose 132 H Pending
Calcium 11.4 H Pending
Vital Signs:
Vital Signs
Temp Pulse Resp BP Pulse Ox
98.4 F 57 12 135/67 95
01/29/25 03:29 01/29/25 03:29 01/29/25 03:29 01/29/25 03:29 01/29/25 03:29
I&O
01/28/25 01/29/25 01/30/25
06:59 06:59 06:59
Intake Total 170 / 170 1080 / 1080
Balance 170 / 170 1080 / 1080
Review of Systems
-
Unable to obtain full review of systems at this time due to: Dementia
Physical Exam
-
General: Appears Chronically Ill and Obese
HEENT: Normocephalic and Moist Mucous Membranes
Respiratory: Clear to Auscultation
Cardiac: Regular Rhythm and S1/S2
GI: Soft, Nontender and Nondistended
Musculoskeletal: Other (boot present on L foot)
Skin: Warm and Dry
Neuro: Awake, Alert and Oriented
[2025-01-29 07:57] LABS: Hematocrit 36.3 % (37.0-47.0); Hemoglobin 11.2 g/dL (12.0-16.0); Mean Corp Hgb Conc. 30.9 g/dL (33.0-37.0); Mean Corpuscular Hgb 28.8 pg (27.0-31.0); Mean Corpuscular Volume 93.3 fL (81.0-99.0); Mean Platelet Volume 12.4 fL (7.4-10.4); Platelet Count 162 10^3/uL (130-400); Red Blood Cell Count 3.89 10^6/uL (4.20-5.40); Red Cell Dist. Width 14.6 % (11.5-14.5); White Blood Cell Count 5.7 10^3/uL (4.8-10.8)
[2025-01-29 08:40] LABS: Blood Urea Nitrogen 15 mg/dl (7-17); Calcium 10.7 mg/dl (8.4-10.2); Carbon Dioxide 33 mmol/L (22-30); Chloride 111 mmol/L (98-107); Estimated Creatinine Clearance 74 ml/min; Glucose 91 mg/dl (70-99); Potassium 3.9 mmol/L (3.5-5.1); Sodium 144 mmol/L (135-145); eGFR > 60.00
[2025-01-29] MEDS: NEURONTIN 300 MG PO (09:18)
[2025-01-29] MEDS: SENSIPAR 30 MG PO (09:18)
[2025-01-29] MEDS: REFRESH EYE DROPS (PF) 1 DROPS BOTH EYES ×2 (09:19→13:33)
[2025-01-29] MEDS: TRILAFON 4 MG PO (09:19)
[2025-01-29] MEDS: ARTANE 5 MG PO (09:19)
[2025-01-29] MEDS: COZAAR 50 MG PO (09:21)
--- NOTE | 2025-01-29 10:43 | CM ---
CM reviewed chart, patient for discharge today back to LTC at [facility]. Patient scheduled for 2:00 p.m. ambulance transport. Liaison at [facility] updated. Call placed to patients daughter to update, unable to leave message. CM will
continue to follow for all discharge planning needs.
Plan; return to [facility] SNF, 2:00 p.m. ambulance transport
[facility]:
Report [phone]
[2025-01-29 11:33] VITALS: BP 129/68
--- NOTE | 2025-01-29 11:56 | W.DCSUMMARY ---
Addendum entered and electronically signed by Alis Gold MD 01/29/25 13:08:
Read, reviewed, and agree. See same day progress note for additional details. Time spent coordinating care, DC planning, review of DC plan of care with resident, transition of care, review of records in EMR, med rec, consults, notes, d/w
consultants, nursing, family, and CM = 25 minutes
Patient's elevated calcium was thought to be due to primary hyperparathyroidism. She was not felt to be a surgical candidate, therefore, no neck imaging was performed. She will be continued on her Sensipar and calcium supplements have been stopped.
Original Note:
Discharge Summary
Discharge Data
Date of Admission: 01/26/25
Date of Discharge: 01/29/25
-
Pending Results: No
Additional Pending Results:
Discharging Physician : Dr. Gold, Dr. Crowell
Disposition : SNF
Primary care physician : Dr. Sadi Clark
Principal Discharge diagnosis : Hypercalcemia, presumed UTI
Chronic Discharge diagnosis : HTN, HLD, COPD, dementia, schizophrenia, depression, bipolar, GERD
Hospital Course : Patient is a 84-year-old female with past medical history significant for hypertension, hypercholesterolemia, COPD, GERD, dementia, schizophrenia, depression, bipolar and chronic chest pain who presented to [facility] ED for evaluation
of reported change in mental status. Patient was found to have hypercalcemia and urinalysis suggested UTI. She was given dose of IV pamidronate and IVF along with nephrology being consulted. Continued blood work and evaluation suggested
hypercalcemia was likely due to primary hypothyroidism. She was started on Sensipar and calcium started to slowly downtrend. For her UTI, patient was started on IV antibiotics and mental status started to improve with patient becoming mildly more
coherent, returning to baseline. She was also started on supplemental oxygen for hypoxemia likely due to exacerbation of HFpEF due to IVF. She was successfully weaned off O2. With patient's condition overall improving and calcium downtrending,
she was stable for discharge and return to SNF. She will be discharged with cefdinir to finish antibiotic course for UTI and to continue Sensipar for hypercalcemia outpatient.
Important imaging findings :
CXR 01/26:Extremely low lung volumes with crowding of central/vascular markings. Pulmonary vascularity at least top normal, unchanged.
Discharge Plan
-
Patient Disposition: Long-Term/SNF
Discharge Diagnosis/Procedures: Hypercalcemia consistent with primary hyperparathyroidism, presumed urinary tract infection, Hypernatremia, hypoxia due to congestive heart failure, hypertension, depression/bipolar
Condition: Fair
Diet: Low Sodium
Activity: As tolerated
Driving Restrictions: No driving
Bathing Restrictions: None
Referrals:
Sadi Clark I., DO [Family Provider] - in one week
Prescriptions:
New
cinacalcet 30 mg Tablet
30 mg PO DAILY 30 Days Qty: 30 0RF
cefdinir 300 mg capsule
300 mg PO BID 5 Days Qty: 10 0RF
Continued
acetaminophen [Tylenol] 325 mg Tablet
650 mg PO Q4HPRN MDD 3000 mg PRN (Reason: mild pain/temp>100F)
magnesium hydroxide [Milk of Magnesia] 400 mg/5 mL Suspension
30 ml PO [id number] PRN (Reason: if no BM in 3 days)
carboxymethylcellulose sodium [Refresh Tears] 0.5 % Drops
1 drp BOTH EYES QID
perphenazine 4 mg Tablet
4 mg PO BID
Fleet Enema 19-7 gram/118 mL Enema
[address] DAILYPRN PRN (Reason: if dulcolax ineffective in 24 hrs)
gabapentin 300 mg Capsule
300 mg PO TID
cholecalciferol (vitamin D3) [Vitamin D3] 25 mcg (1,000 unit) Tablet
25 mcg PO DAILY
ipratropium-albuterol 0.5 mg-3 mg(2.5 mg base)/3 mL Solution For Nebulization
3 ml INHALATION Q8HPRN PRN (Reason: SOB/wheezing)
Patient Comments:
03/13/2024, QID x 2 weeks; start date: 03/09/2024; end date: 03/23/2024.
bisacodyl 10 mg Suppository
[address] DAILYPRN PRN (Reason: constipation) Qty: 0 0RF
lorazepam [Ativan] 0.5 mg tablet
0.25 mg PO HS Qty: 3 0RF
trihexyphenidyl 5 mg Tablet
5 mg PO BID
losartan 50 mg Tablet
50 mg PO DAILY Qty: 0 0RF
methenamine hippurate 1 gram Tablet
1 g PO DAILY Qty: 0 0RF
Discontinued
calcium carbonate 500 mg calcium (1,250 mg) Tablet
500 mg PO DAILY
Patient Comments:
03/13/2024, 1250 mg.
lorazepam 0.5 mg Tablet
0.5 mg PO DAILY Qty: 3 0RF
Discharge Orders:
Discharge Patient (As Directed); Ordered 01/29/25
Ordered By: Arabella Crowell
Discharge Date and Time
Print Language: SETSWANA
--- NOTE | 2025-01-29 13:44 | W.PN.NEPH.PH ---
Today's Communication / Plan
-
ok for d/c
Assessment/Plan
-
Assessment
Hypercalcemia
Hyponatremia
Dementia
Schizophrenia
Hypertension
Heart failure preserved ejection fraction
Plan
calcium improving to 10.7 s/p pamidronate
Laboratory values demonstrate primary hyperparathyroidism, continue Sensipar 30 mg daily
She is clearly not a candidate for any surgery so imaging of the neck is not needed
Follow BMP
await 1,25 vitamin D level, 25 vit d level low
sodium stable
d/c plan per primary
BMP next week with PCP
-
-
Date of Service: January 29, 2025
CC / HPI / ROS
-
Chief Complaint:
hypercalcemia
History of Present Illness:
Calcium down to 10.7 after aredia and sensipar
BP stable
K normal
Na down to 144
Cr stable 0.7
Review of Systems:
no CP/SOB
on RA
weight is up not sure if accurate
Labs
-
Labs:
WBC 5.7 10^3/uL (4.8-10.8) 01/29/25 06:54
RBC 3.89 10^6/uL (4.20-5.40) L 01/29/25 06:54
Hgb 11.2 g/dL (12.0-16.0) L 01/29/25 06:54
Hct 36.3 % (37.0-47.0) L 01/29/25 06:54
Plt Count 162 10^3/uL (130-400) 01/29/25 06:54
Sodium 144 mmol/L (135-145) 01/29/25 06:54
Potassium 3.9 mmol/L (3.5-5.1) 01/29/25 06:54
Chloride 111 mmol/L (98-107) H 01/29/25 06:54
Carbon Dioxide 33 mmol/L (22-30) H 01/29/25 06:54
BUN 15 mg/dl (7-17) 01/29/25 06:54
Creatinine 0.7 mg/dL (0.6-1.0) 01/29/25 06:54
eGFR > 60.00 01/29/25 06:54
Glucose 91 mg/dl (70-99) 01/29/25 06:54
Calcium 10.7 mg/dl (8.4-10.2) H 01/29/25 06:54
Phosphorus 2.8 mg/dl (2.5-4.5) 01/26/25 22:18
Iem-K-Ldfrkhmzcgg Pept 514 pg/ml 01/26/25 18:20
Albumin 3.5 g/dl (3.5-5.0) 01/26/25 16:35
Physical Exam
-
Vital Signs:
Vital Signs
Temp Pulse Resp BP Pulse Ox
97.9 F 58 18 129/68 92
01/29/25 11:33 01/29/25 11:33 01/29/25 11:33 01/29/25 11:33 01/29/25 11:33
Cardiovascular:: Regular rate and rhythm
Lung Excursion:: Normal (decreased BS)
Abdomen:: Nontender and Soft
Extremity Edema:: None: Bilateral:
Thao Catheter: No
[2025-01-29 21:47] LABS: Vitamin D 1,25 Dihydroxy 21.6 pg/mL (19.9-79.3)
== END 2025-01-29 14:14 | DRG 640 ==
LOC: 4 WEST ACU 17:42
PROVIDERS: Nurse Practitioner Family; Physician Assistant Medical; Student in an Organized Health Care Education/Training Program; ADMITTING PHYSICIAN Hospitalist; ATTENDING PHYSICIAN Internal Medicine; EMERGENCY PHYSICIAN Emergency Medicine; FAMILY PHYSICIAN Internal Medicine; OTHER PHYSICIAN Specialist
DX: E83.52 Hypercalcemia (principal); I50.33 Acute on chronic diastolic (congestive) heart failure; F03.94 Unspecified dementia, unspecified severity, with anxiety; F03.93 Unspecified dementia, unspecified severity, with mood disturbance; N39.0 Urinary tract infection, site not specified; E87.0 Hyperosmolality and hypernatremia; R41.82 Altered mental status, unspecified; F20.9 Schizophrenia, unspecified; R09.02 Hypoxemia; I11.0 Hypertensive heart disease with heart failure; E78.00 Pure hypercholesterolemia, unspecified; J44.9 Chronic obstructive pulmonary disease, unspecified; K21.9 Gastro-esophageal reflux disease without esophagitis; F31.9 Bipolar disorder, unspecified; G89.29 Other chronic pain; R07.9 Chest pain, unspecified; E66.01 Morbid (severe) obesity due to excess calories; Z60.2 Problems related to living alone; Z68.38 Body mass index [BMI] 38.0-38.9, adult
CPT/HCPCS: 51701; 71045; 80048; 80053; 81003; 81015; 82306; 82330; 82652; 83880; 83970; 84100; 85025; 85027; 87070; 87086; 92526; 92610; 93005; 96361; 96374; 97163; 97167; 99285; J2430